=== PATIENT | female | born 1945 | race Caucasian/White ===

== ENCOUNTER → 2016-11-13 | Outpatient (CLI) | payer MEDICARE, BC ==
[~2016-11-13] MED LIST: DENOSUMAB 60 MG/ML 1 ML SYRINGE SQ ONE
[2016-11-13 11:39] VITALS: BP 132/67; PULSE 55; RESP 20; TEMP 98
== END | disposition home or self-care (01) ==
LOC: PROCWHC3 10:39
PROVIDERS: ATTEND Internal Medicine Geriatric Medicine
DX: M81.0 Age-related osteoporosis without current pathological fracture (principal)
CPT/HCPCS: 96372; J0897

== ENCOUNTER 2016-12-24 21:22 | Emergency (ER) | payer MEDICARE, BC ==
[2016-12-24 21:31] VITALS: RESP 18
--- NOTE | 2016-12-24 21:46 | ED ---
General Adult HPI - General Chief complaint: Urogenital Stated complaint: blood in urine Time Seen by Provider: 12/24/16 21:34 Source: patient, RN notes reviewed Mode of arrival: ambulatory Limitations: no limitations - History of Present Illness Initial comments: 71-year-old female presents emergency Department chief complaint dysuria, hematuria. Patient states it started earlier today. Patient states that she noticed she's been going more often and it fam. She states that she initially thought she noticed some blood but states that now it is more noticeable. states she has some lower abdominal pain just over her bladder region but denies any flank pain, abdominal pain and has no history kidney stones. Patient states that she's had no fever no chills. Patient does not take any blood thinners other than taking daily aspirin. Patient denies any diarrhea, constipation, chest pain, shortness breath, headache or dizziness. - Related Data Home Medications Medication Instructions Recorded Confirmed Aspirin 325 mg PO HS 01/21/14 12/24/16 Atenolol [Tenormin] 50 mg PO DAILY 01/21/14 12/24/16 Benazepril [Lotensin] 10 mg PO HS 01/21/14 12/24/16 Difluprednate [Durezol] 1 drop RIGHT EYE MOFR 01/21/14 12/24/16 Esomeprazole Magnesium [NexIUM] 40 mg PO DAILY 01/21/14 12/24/16 Famotidine [Pepcid] 20 mg PO HS 01/21/14 12/24/16 Furosemide [Lasix] 20 mg PO DAILY 01/21/14 12/24/16 Gabapentin [Neurontin] 300 mg PO BID 01/21/14 12/24/16 Levothyroxine Sodium [Synthroid] 100 mcg PO DAILY 01/21/14 12/24/16 Calcium Carbonate/Vitamin D3 1 tab PO BID 05/10/15 12/24/16 [Calcium 600 + Vit D Tablet] Ezetimibe/Simvastatin [Vytorin 1 tab PO DAILY 05/10/15 12/24/16 10-20 mg Tablet] Calcium Carbonate [Calcium] 600 mg PO DAILY 02/17/16 12/24/16 Multivitamins, Thera [Multivitamin] 1 tab PO DAILY 02/17/16 12/24/16 Previous Rx's Medication Instructions Recorded Ciprofloxacin HCl [Cipro] 500 mg PO Q12HR #14 tablet 12/24/16 Allergies Allergy/AdvReac Type Severity Reaction Status Date / Time Penicillins Allergy Unknown Swelling Verified 12/24/16 22:30 Review of Systems ROS Statement: Those systems with pertinent positive or pertinent negative responses have been documented in the HPI. ROS Other: All systems not noted in ROS Statement are negative. Past Medical History Past Medical History: Asthma, GERD/Reflux, Hyperlipidemia, Hypertension, Neurologic Disorder, Osteoarthritis (OA), Thyroid Disorder Additional Past Medical History / Comment(s): Valvular heart disease status post aortic valve replacement, prolapsed mitral valve, seasonal ALLERGIES. History of Any Multi-Drug Resistant Organisms: None Reported Past Surgical History: Orthopedic Surgery Additional Past Surgical History / Comment(s): BLADDER SUSPENSION, AORTIC HEART VALVE REPLACEMENT in 2004, bilateral BUNIONECTOMYS, Past Anesthesia/Blood Transfusion Reactions: No Reported Reaction, Motion Sickness Past Psychological History: No Psychological Hx Reported Smoking Status: Never smoker Past Alcohol Use History: None Reported Additional Past Alcohol Use History / Comment(s): Patient has been a lifelong nonsmoker. She drinks alcohol the social basis only. No alcohol abuse, no drug use, no medical marijuana or marijuana use. She is and lives at home with her. . 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 There are no pets in the home. She is currently living in a [facility]. Patient has had extensive travel throughout the [place] as well as in. [place]. Past Drug Use History: None Reported - Past Family History Brother(s) Family Medical History: Cancer Additional Family Medical History / Comment(s): LEUKEMIA Father Family Medical History: Coronary Artery Disease (CAD) Mother Family Medical History: Coronary Artery Disease (CAD) Son(s) Family Medical History: Unable to Obtain General Exam Limitations: no limitations General appearance: alert, in no apparent distress Neck exam: Present: normal inspection. Absent: tenderness, meningismus, lymphadenopathy Respiratory exam: Present: normal lung sounds bilaterally. Absent: respiratory distress, wheezes, rales, rhonchi, stridor Cardiovascular Exam: Present: regular rate, normal rhythm, normal heart sounds. Absent: systolic murmur, diastolic murmur, rubs, gallop, clicks GI/Abdominal exam: Present: soft, tenderness (Minimal suprapubic), normal bowel sounds. Absent: distended, guarding, rebound, rigid Back exam: Absent: CVA tenderness (R), CVA tenderness (L) Neurological exam: Present: alert, oriented X3, CN II-XII intact Skin exam: Present: warm, dry, intact, normal color. Absent: rash Course Vital Signs 12/24/16 21:28 Temperature 97.3 F L Pulse Rate 69 Respiratory 18 Rate Blood Pressure 142/67 O2 Sat by Pulse 100 Oximetry Medical Decision Making - Medical Decision Making 71-year-old female presented for dysuria hematuria. Patient has hemorrhagic cystitis. Patient placed in an bicep this time patient is informed that she needs to have her recheck her urine and nausea of her kidneys to make sure she does not have any masses of any sort. Patient will follow primary care for this. Return parameters were discussed. - Lab Data Lab Results 12/24/16 Range/Units 21:37 Urine Color Light Brown Urine Appearance Cloudy H (Clear) Urine pH 7.0 (5.0-8.0) Ur Specific [place] 1.011 (1.001-1.035) Urine Protein 2+ H (Negative) Urine Glucose (UA) Negative (Negative) Urine Ketones Negative (Negative) Urine Blood Large H (Negative) Urine Nitrite Negative (Negative) Urine Bilirubin Negative (Negative) Urine Urobilinogen <2.0 (<2.0) mg/dL Ur Leukocyte Esterase Moderate H (Negative) Urine RBC >182 H (0-5) /hpf Urine WBC 90 H (0-5) /hpf Urine WBC Clumps Occasional H (None) /hpf Disposition Clinical Impression: Hemorrhagic cystitis Disposition: HOME SELF-CARE Condition: Stable Instructions: Urinary Tract Infection in Women (ED) Additional Instructions: Please return to the Emergency Department if symptoms worsen or any other concerns. Prescriptions: Ciprofloxacin HCl [Cipro] 500 mg PO Q12HR #14 tablet Referrals: Alban Nelson MD [Primary Care Provider] - 1-2 days Time of Disposition: 22:41
[2016-12-24 22:14] LABS: Appearance,Urine Cloudy (Clear); Bilirubin,Urine Negative (Negative); Glucose,Urine (UA) Negative (Negative); Ketones,Urine Negative (Negative); Leukocyte Esterase,Urine Moderate (Negative); Nitrite,Urine Negative (Negative); Particle Count 8203; Protein,Urine 2+ (Negative); RBC,Urine >182 /hpf (0-5); Specific Gravity,Urine 1.011 (1.001-1.035); UA Billing (MACRO vs. MICRO) MICRO; Urobilinogen,Urine <2.0 mg/dL (<2.0); WBC,Urine 90 /hpf (0-5)
[2016-12-24] MEDS ORDERED: CIPROFLOXACIN HCL 500 MG TAB PO STA (22:41)
[2016-12-24 23:06] VITALS: BP 185/79; PULSE 70; TEMP 98.1
== END 2016-12-24 23:06 | disposition home or self-care (01) ==
LOC: EC 21:22
DX: N30.90 Cystitis, unspecified without hematuria (principal); J45.909 Unspecified asthma, uncomplicated; K21.9 Gastro-esophageal reflux disease without esophagitis; E78.5 Hyperlipidemia, unspecified; I10 Essential (primary) hypertension; M19.90 Unspecified osteoarthritis, unspecified site; E07.9 Disorder of thyroid, unspecified; Z79.82 Long term (current) use of aspirin; Z79.899 Other long term (current) drug therapy; Z88.0 Allergy status to penicillin
CPT/HCPCS: 81001; 87077; 87086; 87186; 99283

== ENCOUNTER 2016-12-30 19:44 | Inpatient (IN) | payer MEDICARE, BC ==
[2016-12-30] MEDS ORDERED: ACETAMINOPHEN TAB 500 MG TAB PO STA (19:58)
[2016-12-30] MEDS ORDERED: IBUPROFEN 600 MG TAB PO STA (19:58)
[2016-12-30] MEDS ORDERED: cefTRIAXone 2,000 MG in SODIUM CHLORIDE 0.9% 100 ML IVPB STA (20:05)
[2016-12-30] MEDS: SODIUM CHLORIDE 0.9% 500 ML IV SCH ×2 (20:21→20:44)
[2016-12-30 20:31] LABS: Appearance,Urine Clear (Clear); Bilirubin,Urine Negative (Negative); Glucose,Urine (UA) Negative (Negative); Ketones,Urine Negative (Negative); Leukocyte Esterase,Urine Negative (Negative); Nitrite,Urine Negative (Negative); PH, Urine 8.5 (5.0-8.0); Protein,Urine Negative (Negative); Specific Gravity,Urine 1.009 (1.001-1.035); UA Billing (MACRO vs. MICRO) CHEM; Urobilinogen,Urine <2.0 mg/dL (<2.0)
[2016-12-30 20:32] LABS: Basophils % (A) 0 %; CH 30.4; CHCM 33.9; Eosinophils # (A) 0.2 k/uL (0-0.7); Eosinophils % (A) 2 %; HCT 38.5 % (34.0-46.0); HDW 2.53; HGB 12.7 gm/dL (11.4-16.0); Luc # (Auto) 0.04; Luc % (Auto) 0; Lymphocytes # (A) 0.3 k/uL (1.0-4.8); Lymphocytes % (A) 3 %; MCH 29.8 pg (25.0-35.0); MCV 90.2 fL (80.0-100.0); Mean Platelet Volume 6.7; Monocytes # (A) 0.2 k/uL (0-1.0); Monocytes % (A) 2 %; Neutrophils % (A) 93 %; RBC 4.27 m/uL (3.80-5.40); RDW 13.3 % (11.5-15.5); WBC 11.8 k/uL (3.8-10.6); WBC (Perox) 11.63
--- NOTE | 2016-12-30 20:32 | ED ---
General Adult HPI - General Chief complaint: Fever Stated complaint: Fever Time Seen by Provider: 12/30/16 19:50 Source: patient, RN notes reviewed Mode of arrival: ambulatory Limitations: no limitations - History of Present Illness Initial comments: this is a 71-year-old female who presents emergency Department after being diagnosed with urinary tract infection and started on Cipro. Patient states her primary medical care doctor switched her antibiotic to Macrobid. Patient comes in today because she continues to spike high fevers and have some right- sided back pain. Patient denies any abdominal pain. Patient denies any nausea vomiting diarrhea. Patient denies any recent cough or difficult to breathing or shortness of breath. Patient denies chest pain or palpitations. Patient denies any skin rashes or lesions. Patient denies headache patient denies neck stiffness. - Related Data Home Medications Medication Instructions Recorded Confirmed Atenolol [Tenormin] 50 mg PO DAILY 01/21/14 12/30/16 Benazepril [Lotensin] 10 mg PO HS 01/21/14 12/30/16 Difluprednate [Durezol] 1 drop RIGHT EYE MOFR 01/21/14 12/30/16 Esomeprazole Magnesium [NexIUM] 40 mg PO DAILY 01/21/14 12/30/16 Famotidine [Pepcid] 20 mg PO HS 01/21/14 12/30/16 Gabapentin [Neurontin] 300 mg PO BID 01/21/14 12/30/16 Levothyroxine Sodium [Synthroid] 100 mcg PO QAM 01/21/14 12/30/16 Ezetimibe/Simvastatin [Vytorin 1 tab PO HS 05/10/15 12/30/16 10-20 mg Tablet] Aspirin EC [Ecotrin] 325 mg PO HS 12/30/16 12/30/16 Calcium Carbonate/Vitamin D3 2 tab PO DAILY 12/30/16 12/30/16 [Calcium 600-Vit D3 800 Tab] Furosemide [Lasix] 20 mg PO QAM 12/30/16 12/30/16 Multivitamins, Thera [Multivitamin 1 tab PO DAILY 12/30/16 12/30/16 (formulary)] Nitrofurantoin Monohyd/M-Cryst 100 mg PO Q12HR 12/30/16 12/30/16 [Macrobid] Allergies Allergy/AdvReac Type Severity Reaction Status Date / Time Penicillins Allergy Unknown Swelling Verified 12/24/16 22:30 Review of Systems ROS Statement: Those systems with pertinent positive or pertinent negative responses have been documented in the HPI. ROS Other: All systems not noted in ROS Statement are negative. Past Medical History Past Medical History: Asthma, GERD/Reflux, Hyperlipidemia, Hypertension, Neurologic Disorder, Osteoarthritis (OA), Thyroid Disorder Additional Past Medical History / Comment(s): Valvular heart disease status post aortic valve replacement, prolapsed mitral valve, seasonal ALLERGIES. History of Any Multi-Drug Resistant Organisms: None Reported Past Surgical History: Orthopedic Surgery Additional Past Surgical History / Comment(s): BLADDER SUSPENSION, AORTIC HEART VALVE REPLACEMENT in 2004, bilateral BUNIONECTOMYS, Past Anesthesia/Blood Transfusion Reactions: No Reported Reaction, Motion Sickness Past Psychological History: No Psychological Hx Reported Smoking Status: Never smoker Past Alcohol Use History: None Reported Past Drug Use History: None Reported - Past Family History Brother(s) Family Medical History: Cancer Additional Family Medical History / Comment(s): LEUKEMIA Father Family Medical History: Coronary Artery Disease (CAD) Mother Family Medical History: Coronary Artery Disease (CAD) Son(s) Family Medical History: Unable to Obtain General Exam - General Exam Comments Initial Comments: GENERAL: Patient is well-developed and well-nourished. Patient is nontoxic and well- hydrated and is in mild distress. ENT: Neck is soft and supple. No significant lymphadenopathy is noted. Oropharynx is clear. Moist mucous membranes. Neck has full range of motion without eliciting any pain. EYES: The sclera were anicteric and conjunctiva were pink and moist. Extraocular movements were intact and pupils were equal round and reactive to light. Eyelids were unremarkable. PULMONARY: Unlabored respirations. Good breath sounds bilaterally. No audible rales rhonchi or wheezing was noted. CARDIOVASCULAR: There is a regular rate and rhythm without any murmurs gallops or rubs. ABDOMEN: Soft and nontender with normal bowel sounds. No palpable organomegaly was noted. There is no palpable pulsatile mass. SKIN: Skin is clear with no lesions or rashes and otherwise unremarkable. NEUROLOGIC: Patient is alert and oriented x3. Cranial nerves II through XII are grossly intact. Motor and sensory are also intact. Normal speech, volume and content. Symmetrical smile. MUSCULOSKELETAL: Normal extremities with adequate strength and full range of motion. Mild CVA tenderness on the right LYMPHATICS: No significant lymphadenopathy is noted PSYCHIATRIC: Normal psychiatric evaluation. Normal interpersonal interactions appears functionally intact in deals appropriately with others. No signs of depression. No signs of anxiety. Limitations: no limitations Course Vital Signs 12/30/16 12/30/16 12/30/16 19:47 20:57 22:08 Temperature 102.7 F H 102.6 F H 100.9 F H Pulse Rate 90 86 75 Respiratory 18 18 18 Rate Blood Pressure 181/77 153/68 136/65 O2 Sat by Pulse 95 96 96 Oximetry 12/30/16 23:08 Temperature 100.0 F H Pulse Rate 76 Respiratory 18 Rate Blood Pressure 132/66 O2 Sat by Pulse 95 Oximetry Medical Decision Making - Medical Decision Making EKG shows a normal sinus rhythm at 87 bpm [place] interval is 166 QRS is 92 QT interval 342 QTC is 411. Patient's EKG shows no ST segment elevation or depression or T wave abnormalities are noted Chest x-ray shows no acute abnormality Patient still does not feel good and think she needs to be admitted. I spoke with Dr. Nicholas he agreed to admit the patient I wrote admit orders. Dr. Nicholas wanted the patient to get Invanz Patient's urine does not show an obvious infection at this point but because the back pain and the fact that she was partially treated with 2 different antibiotics I admitted the patient hoping that the cultures come back indicate what antibiotic is best choice for her urinary tract infection. - Lab Data Result diagrams: 12/30/16 20:10 12/30/16 20:10 Lab Results 12/30/16 12/30/16 12/30/16 Range/Units 20:10 20:10 20:10 WBC 11.8 H (3.8-10.6) k/uL RBC 4.27 (3.80-5.40) m/uL Hgb 12.7 (11.4-16.0) gm/dL Hct 38.5 (34.0-46.0) % MCV 90.2 (80.0-100.0) fL MCH 29.8 (25.0-35.0) pg MCHC 33.0 (31.0-37.0) g/dL RDW 13.3 (11.5-15.5) % Plt Count 270 (150-450) k/uL Neutrophils % 93 % Lymphocytes % 3 % Monocytes % 2 % Eosinophils % 2 % Basophils % 0 % Neutrophils # 11.0 H (1.3-7.7) k/uL Lymphocytes # 0.3 L (1.0-4.8) k/uL Monocytes # 0.2 (0-1.0) k/uL Eosinophils # 0.2 (0-0.7) k/uL Basophils # 0.0 (0-0.2) k/uL PT (9.0-12.0) sec INR (<1.1) APTT (22.0-30.0) sec Sodium 135 L (137-145) mmol/L Potassium 4.2 (3.5-5.1) mmol/L Chloride 97 L (98-107) mmol/L Carbon Dioxide 25 (22-30) mmol/L Anion Gap 13 mmol/L BUN 11 (7-17) mg/dL Creatinine 0.70 (0.52-1.04) mg/dL Est GFR (MDRD) Af Amer >60 (>60 ml/min/1.73 sqM) Est GFR (MDRD) Non-Af >60 (>60 ml/min/1.73 sqM) Glucose 128 H (74-99) mg/dL Plasma Lactic Acid [place] 1.2 (0.7-2.0) mmol/L Calcium 10.1 (8.4-10.2) mg/dL Total Bilirubin 0.4 (0.2-1.3) mg/dL AST 31 (14-36) U/L ALT 41 (9-52) U/L Alkaline Phosphatase 93 (38-126) U/L Total Protein 7.7 (6.3-8.2) g/dL Albumin 4.5 (3.5-5.0) g/dL Urine Color Urine Appearance (Clear) Urine pH (5.0-8.0) Ur Specific [place] (1.001-1.035) Urine Protein (Negative) Urine Glucose (UA) (Negative) Urine Ketones (Negative) Urine Blood (Negative) Urine Nitrite (Negative) Urine Bilirubin (Negative) Urine Urobilinogen (<2.0) mg/dL Ur Leukocyte Esterase (Negative) 12/30/16 12/30/16 Range/Units 20:10 20:10 WBC (3.8-10.6) k/uL RBC (3.80-5.40) m/uL Hgb (11.4-16.0) gm/dL Hct (34.0-46.0) % MCV (80.0-100.0) fL MCH (25.0-35.0) pg MCHC (31.0-37.0) g/dL RDW (11.5-15.5) % Plt Count (150-450) k/uL Neutrophils % % Lymphocytes % % Monocytes % % Eosinophils % % Basophils % % Neutrophils # (1.3-7.7) k/uL Lymphocytes # (1.0-4.8) k/uL Monocytes # (0-1.0) k/uL Eosinophils # (0-0.7) k/uL Basophils # (0-0.2) k/uL PT 9.9 (9.0-12.0) sec INR 1.0 (<1.1) APTT 24.4 (22.0-30.0) sec Sodium (137-145) mmol/L Potassium (3.5-5.1) mmol/L Chloride (98-107) mmol/L Carbon Dioxide (22-30) mmol/L Anion Gap mmol/L BUN (7-17) mg/dL Creatinine (0.52-1.04) mg/dL Est GFR (MDRD) Af Amer (>60 ml/min/1.73 sqM) Est GFR (MDRD) Non-Af (>60 ml/min/1.73 sqM) Glucose (74-99) mg/dL Plasma Lactic Acid [place] (0.7-2.0) mmol/L Calcium (8.4-10.2) mg/dL Total Bilirubin (0.2-1.3) mg/dL AST (14-36) U/L ALT (9-52) U/L Alkaline Phosphatase (38-126) U/L Total Protein (6.3-8.2) g/dL Albumin (3.5-5.0) g/dL Urine Color Yellow Urine Appearance Clear (Clear) Urine pH 8.5 H (5.0-8.0) Ur Specific [place] 1.009 (1.001-1.035) Urine Protein Negative (Negative) Urine Glucose (UA) Negative (Negative) Urine Ketones Negative (Negative) Urine Blood Negative (Negative) Urine Nitrite Negative (Negative) Urine Bilirubin Negative (Negative) Urine Urobilinogen <2.0 (<2.0) mg/dL Ur Leukocyte Esterase Negative (Negative) Disposition Clinical Impression: Pyelonephritis Disposition: ADMITTED IP TO THIS HOSP Time of Disposition: 23:04
[2016-12-30 20:43] LABS: Partial Thromboplastin Time 24.4 sec (22.0-30.0); Prothrombin Time 9.9 sec (9.0-12.0)
[2016-12-30 20:55] LABS: ALT 41 U/L (9-52); AST 31 U/L (14-36); Alkaline Phosphatase 93 U/L (38-126); Anion Gap 13 mmol/L; Blood Urea Nitrogen 11 mg/dL (7-17); Calcium 10.1 mg/dL (8.4-10.2); Carbon Dioxide 25 mmol/L (22-30); Chloride 97 mmol/L (98-107); Glucose 128 mg/dL (74-99); Non-African American GFR(MDRD) >60 (>60 ml/min/1.73 sqM); Potassium 4.2 mmol/L (3.5-5.1); Sodium 135 mmol/L (137-145); Total Bilirubin 0.4 mg/dL (0.2-1.3); Total Protein 7.7 g/dL (6.3-8.2)
--- NOTE | 2016-12-30 22:33 | XR ---
EXAM: XR Chest, 2 Views CLINICAL HISTORY: Reason: Difficulty breathing TECHNIQUE: Frontal and lateral views of the chest. COMPARISON: Chest x-ray 04/21/2013 FINDINGS: Lungs: Minimal opacities at the left lung base, favor atelectasis but correlate for early pneumonia. Pleural space: Unremarkable. No pneumothorax. Heart: Heart size is normal limits. Aortic valve replacement. Mediastinum: Unremarkable. Bones/joints: Median sternotomy wires. IMPRESSION: Minimal opacities at the left lung base, favor atelectasis but correlate for early pneumonia.
[2016-12-30] MEDS ORDERED: HYDROmorphone 1 MG/ML 1 ML SYRINGE IVP STA (23:10)
[2016-12-30] MEDS ORDERED: ONDANSETRON 4 MG/2 ML VIAL IVP STA (23:10)
[2016-12-30] MEDS: SODIUM CHLORIDE 0.9% 1,000 ML IV ONE (23:20)
[2016-12-30] MEDS ORDERED: ACETAMINOPHEN TAB 325 MG TAB PO PRN (23:30)
[2016-12-30 23:45] VITALS: BMI 23.6
[2016-12-31] MEDS: ATORVASTATIN 10 MG TAB PO SCH ×2 (00:38→20:14)
[2016-12-31] MEDS: GABAPENTIN 300 MG CAP PO SCH ×3 (00:39→20:13)
[2016-12-31] MEDS: EZETIMIBE 10 MG TAB PO SCH ×2 (00:39→20:13)
[2016-12-31] MEDS: LISINOPRIL 10 MG TAB PO SCH ×2 (00:39→20:13)
[2016-12-31] MEDS: LEVOTHYROXINE 100 MCG TAB PO SCH (06:07)
[2016-12-31] MEDS: ERTAPENEM 1 GM in SODIUM CHLORIDE 0.9% 50 ML IVPB SCH (08:50)
[2016-12-31] MEDS ORDERED: NON-FORMULARY DRUG (Difluprednate [Durezol] 1 DROP) RIGHT EYE SCH (11:15)
[2016-12-31] MEDS ORDERED: IBUPROFEN 600 MG TAB PO PRN (12:09)
[2016-12-31] MEDS: HYDROmorphone 1 MG/ML 1 ML SYRINGE IVP PRN (12:28)
[2016-12-31] MEDS: POLYETHYLENE GLYCOL 3350 17 GM POWD.PACK PO SCH (12:30)
[2016-12-31] MEDS: ATENOLOL 50 MG TAB PO SCH (12:30)
--- NOTE | 2016-12-31 13:31 | US ---
EXAMINATION TYPE: US kidneys/renal and bladder DATE OF EXAM: 12/31/2016 COMPARISON: NONE CLINICAL HISTORY: uti; Renal infection, bilateral flank pain and hematuria per patient. EXAM MEASUREMENTS: Right Kidney: 11.0 x 6.4 x 3.9 cm Left Kidney: 10.3 x 5.6 x 5.1 cm Post Void Residual Volume: 10.1 mL Right Kidney: No hydronephrosis; right renal cortical cyst at mid lower pole = 1.6 x 1.4 x 1.0cm Left Kidney: No hydronephrosis or masses seen Bladder: wnl Bilateral Jets seen: yes, smaller right jet than left jet Normal Post Void Residual: Yes Cortical medullary differentiation is maintained, kidneys are morphologically normal. No significant postvoid residual urinary bladder IMPRESSION: There may be a small septation within the right renal cyst.
--- NOTE | 2016-12-31 14:38 | P.HPIM ---
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 Patient was diagnosed on 01/23/2017 with UTI and hematuria at the time urine culture was done result came back positive for E. coli with susceptibility to multiple antibiotics one of them ciprofloxacin and Macrodantin. Patient called my partner on Saturday not feeling well started having low-grade temperature with burning urination and slight discomfort toward the end of urination with no hematuria this time. My partner end up calling in Macrodantin 100 mg twice a day which patient is taking developed to have worsening symptoms with worsening right-sided flank pain radiating toward the groin area along with fever and chills. Ended up coming to the emergency department at [facility] surprisingly her urine test came back negative for the time with mildly elevated white blood cell respiratory lab did not look bad. Patient blood pressure and pulse rates were slightly bit off consistent with sepsis. Patient was started on Rocephin IV. Infectious disease were consulted patient probably have relapse of her symptom for possible foreign body including kidney stone. Ultrasound of the kidney will be done and furthermore patient might require CT without contrast as a protocol for kidney stone. Review of Systems Constitutional: Reports fatigue, Reports malaise, Reports night sweats, Reports sweats, Reports weakness, Reports weight loss, Denies as per HPI, Denies anorexia, Denies chills, Denies chronic headaches, Denies chronic pain, Denies daytime sleepiness, Denies fever, Denies lethargy, Denies poor appetite, Denies weight gain Eyes: bilateral as per HPI, bilateral blurred vision Ears: bilateral: decreased hearing Ears, nose, mouth and throat: Reports ant. neck pain, Reports mouth pain, Reports nasal discharge, Reports neck fullness/pressure, Reports sinus pain, Reports sinus pressure, Denies as per HPI, Denies bleeding gums, Denies dental pain, Denies dysphagia, Denies epistaxis, Denies headache, Denies hoarseness, Denies nasal congestion, Denies neck lump, Denies nose pain, Denies odynophagia , Denies post-nasal drip, Denies swelling in mouth, Denies swelling in throat, Denies sore throat, Denies vertigo, Denies voice changes Cardiovascular: Reports chest pain, Reports lightheadedness, Reports palpitations, Reports phlebitis, Reports rapid heart beat, Denies as per HPI, Denies claudication, Denies decreased exercise tolerance, Denies dyspnea on exertion, Denies edema, Denies high blood pressure, Denies irregular heart beat , Denies leg edema, Denies orthopnea, Denies paroxysmal nocturnal dyspnea, Denies shortness of breath, Denies syncope Respiratory: Reports congestion, Denies as per HPI, Denies cough, Denies cough with sputum, Denies dyspnea, Denies excessive sputum, Denies hemoptysis, Denies home oxygen, Denies pain, Denies pain on inspiration, Denies pleurisy, Denies respiratory infections, Denies sleep apnea, Denies snoring, Denies wheezing Gastrointestinal: Reports abdominal pain, Reports bloating, Reports constipation , Reports dyspepsia, Reports heartburn, Reports loss of appetite, Reports melena , Reports nausea, Denies as per HPI, Denies belching, Denies BRBPR, Denies change in bowel habits, Denies coffee ground emesis, Denies diarrhea, Denies early satiety, Denies excessive gas, Denies hematemesis, Denies hematochezia, Denies indigestion, Denies jaundice, Denies lactose intolerance, Denies vomiting Genitourinary: Reports dysuria, Reports flank pain, Reports hematuria, Reports incomplete emptying, Reports kidney stones, Reports stress incontinence, Reports urge incontinence, Reports urinary frequency, Denies as per HPI, Denies abnormal vaginal bleeding, Denies decreased libido, Denies difficulty conceiving , Denies difficulty voiding, Denies dysmenorrhea, Denies dyspareunia, Denies genital sores, Denies hot flashes, Denies menorrhagia, Denies mixed incontinence , Denies nocturia, Denies pelvic pain, Denies post void dribbling, Denies , Denies prolapse symptoms, Denies urgency, Denies vaginal discharge, Denies vaginal dryness, Denies vaginal itching, Denies vaginal odor Musculoskeletal: Reports frequent falls, Reports gait dysfunction, Reports leg numbness/tingling, Reports limitation of motion, Reports loss of height, Reports low back pain, Reports myalgias, Reports neck stiffness, Reports prior amputations, Denies as per HPI, Denies arm numbness/tingling, Denies atrophy, Denies fractures, Denies hot joints, Denies morning stiffness, Denies muscle cramps, Denies muscle weakness, Denies neck pain, Denies redness of joints, Denies shooting arm pain, Denies shooting leg pain Musculoskeletal: bilateral: ankle pain Integumentary: Reports pruritus, Reports rash, Reports striae, Denies as per HPI , Denies acne, Denies boils, Denies brittle nails, Denies change in hair/nails, Denies color changes, Denies darkening of skin, Denies depigmentation, Denies dryness, Denies foot/leg ulcers, Denies growths, Denies hirsutism, Denies lesions, Denies onychomycosis, Denies sores, Denies unusual bruising, Denies wounds Neurological: Denies as per HPI, Denies aphasia, Denies ataxia, Denies balance difficulties, Denies burning pain, Denies change in mentation, Denies change in smell/taste, Denies change in speech, Denies confusion, Denies convulsions, Denies double vision, Denies gait dysfunction, Denies head injury, Denies headaches, Denies hearing difficulties, Denies lack of coordination, Denies loss of vision, Denies memory loss, Denies migraines, Denies motor disturbance, Denies numbness, Denies paralysis, Denies paresthesias, Denies seizures, Denies sensory deficit, Denies spasticity, Denies syncope, Denies tic, Denies tingling , Denies transient paralysis, Denies tremors, Denies vertigo, Denies weakness, Denies visual changes Psychiatric: Reports anxiety, Reports depression, Denies as per HPI, Denies anhedonia, Denies anxiety attacks, Denies change in appetite, Denies change in libido, Denies change in sleep habits, Denies confusion, Denies difficulty concentrating, Denies disorientation, Denies hallucinations, Denies hopelessness , Denies hypersomnia, Denies insomnia, Denies irritability, Denies memory loss, Denies mood swings, Denies paranoia, Denies sadness/tearfulness, Denies sleep disturbances, Denies suicidal ideation Endocrine: Reports nocturia, Reports palpitations, Reports polydipsia, Reports polyphagia, Reports polyuria, Denies as per HPI, Denies cold intolerance, Denies deepening of the voice, Denies excessive sweating, Denies excessive thirst, Denies fatigue, Denies flushing, Denies heat intolerance, Denies high blood sugars, Denies increase in ring/shoe/hat size, Denies low blood sugars, Denies proptosis, Denies recent glucocorticoid use, Denies thyroid mass, Denies weight change Hematologic/Lymphatic: Denies as per HPI, Denies easy bleeding, Denies easy bruising, Denies lymphadenopathy, Denies lymphedema, Denies thrombophilia Allergic/Immunologic: Denies as per HPI, Denies allergic rhinitis, Denies anaphylaxis, Denies angioedema, Denies gluten intolerance, Denies persistent infections, Denies seasonal allergies, Denies urticaria, Denies wheezing Past Medical History Past Medical History: Asthma, GERD/Reflux, Hyperlipidemia, Hypertension, Neurologic Disorder, Osteoarthritis (OA), Thyroid Disorder Additional Past Medical History / Comment(s): Valvular heart disease status post aortic valve replacement, prolapsed mitral valve, seasonal ALLERGIES. History of Any Multi-Drug Resistant Organisms: None Reported Past Surgical History: Orthopedic Surgery Additional Past Surgical History / Comment(s): BLADDER SUSPENSION, AORTIC HEART VALVE REPLACEMENT in 2004, bilateral BUNIONECTOMYS, Past Anesthesia/Blood Transfusion Reactions: No Reported Reaction, Motion Sickness Past Psychological History: No Psychological Hx Reported Smoking Status: Never smoker Past Alcohol Use History: None Reported Past Drug Use History: None Reported - Past Family History Brother(s) Family Medical History: Cancer Additional Family Medical History / Comment(s): LEUKEMIA Father Family Medical History: Coronary Artery Disease (CAD) Mother Family Medical History: Coronary Artery Disease (CAD) Son(s) Family Medical History: Unable to Obtain Medications and Allergies Home Medications Medication Instructions Recorded Confirmed Type Atenolol [Tenormin] 50 mg PO DAILY 01/21/14 12/30/16 History Benazepril [Lotensin] 10 mg PO HS 01/21/14 12/30/16 History Difluprednate [Durezol] 1 drop RIGHT EYE MOFR 01/21/14 12/30/16 History Esomeprazole Magnesium [NexIUM] 40 mg PO DAILY 01/21/14 12/30/16 History Famotidine [Pepcid] 20 mg PO HS 01/21/14 12/30/16 History Gabapentin [Neurontin] 300 mg PO BID 01/21/14 12/30/16 History Levothyroxine Sodium [Synthroid] 100 mcg PO QAM 01/21/14 12/30/16 History Ezetimibe/Simvastatin [Vytorin 1 tab PO HS 05/10/15 12/30/16 History 10-20 mg Tablet] Aspirin EC [Ecotrin] 325 mg PO HS 12/30/16 12/30/16 History Calcium Carbonate/Vitamin D3 2 tab PO DAILY 12/30/16 12/30/16 History [Calcium 600-Vit D3 800 Tab] Furosemide [Lasix] 20 mg PO QAM 12/30/16 12/30/16 History Multivitamins, Thera [Multivitamin 1 tab PO DAILY 12/30/16 12/30/16 History (formulary)] Nitrofurantoin Monohyd/M-Cryst 100 mg PO Q12HR 12/30/16 12/30/16 History [Macrobid] Allergies Allergy/AdvReac Type Severity Reaction Status Date / Time Penicillins Allergy Unknown Swelling Verified 12/24/16 22:30 Physical Exam Vitals: Vital Signs Temp Pulse Pulse Resp BP BP Pulse Ox 12/31/16 07:00 97.6 F 60 16 109/59 95 12/31/16 00:00 70 16 12/30/16 23:41 98.9 F 70 16 131/61 92 L 12/30/16 23:08 100.0 F H 76 18 132/66 95 12/30/16 22:08 100.9 F H 75 18 136/65 96 12/30/16 20:57 102.6 F H 86 18 153/68 96 12/30/16 19:47 102.7 F H 90 18 181/77 95 Intake and Output 12/30/16 12/31/16 12/31/16 22:59 06:59 14:59 Other: Voiding Method Toilet Toilet # Voids 1 Weight 64.41 kg 64.41 kg 64.41 kg Patient Weight 01/01/17 06:59 Weight 64.41 kg - Constitutional General appearance: no average body habitus, cooperative, no disheveled, no mild distress, no morbidly obese, no acute distress, no obese, no severe distress, no thin - EENT Eyes: no abnormal pupil, no anicteric sclerae, no disc margins sharp, no edentulous, no EOMI, no PERRLA, no fundus normal, no photophobia, no dentition normal, no poor dentition, no ptosis, no scleral icterus, normal appearance ENT: no hard of hearing, no hearing grossly normal, no NA/AT, normal oropharynx , no other, no pharyngeal erythema, no thrush, no tonsillar exudates, no tonsillar swelling Ears: bilateral: normal - Neck Neck: no lymphadenopathy, normal ROM, no other, no rigidity, no stridor, no thyromegaly Carotids: bilateral: upstroke normal Thyroid: bilateral: normal size - Respiratory Respiratory: bilateral: CTA, diminished - Cardiovascular Rhythm: regular Heart sounds: normal: S1 Abnormal Heart Sounds: systolic murmur, S3 Gallop - Gastrointestinal General gastrointestinal: no absent bowel sounds, decreased bowel sounds, no distended, hepatomegaly, hyperactive bowel sounds, no normal bowel sounds, no organomegaly, no rigid, no scaphoid, soft, splenomegaly, no tenderness, no umbilical hernia, no ventral hernia - Integumentary Integumentary: no calor, no cellulitis, no cyanotic, no decreased turgor, flushed, no jaundiced, normal, no normal turgor, pale, rash, no ulcer - Neurologic Neurologic: CNII-XII intact - Musculoskeletal Musculoskeletal: gait normal, generalized weakness, no strength equal bilaterally, no right sided weakness, no left sided weakness - Psychiatric Psychiatric: A&O x's 3, appropriate affect, no intact judgment & insight Results CBC & Chem 7: 12/30/16 20:10 12/30/16 20:10 Labs: Abnormal Lab Results - Last 24 Hours (Table) 12/30/16 12/30/16 12/30/16 Range/Units 20:10 20:10 20:10 WBC 11.8 H (3.8-10.6) k/uL Neutrophils # 11.0 H (1.3-7.7) k/uL Lymphocytes # 0.3 L (1.0-4.8) k/uL Sodium 135 L (137-145) mmol/L Chloride 97 L (98-107) mmol/L Glucose 128 H (74-99) mg/dL Urine pH 8.5 H (5.0-8.0) Microbiology - Last 24 Hours (Table) 12/30/16 20:10 Urine Culture - Preliminary Urine,Clean Catch Thrombosis Risk Factor Assmnt - Choose All That Apply Any of the Below Risk Factors Present?: No Each Risk Factor Represents 2 Points: Age 61-74 years Thrombosis Risk Factor Assessment Total Risk Factor Score: 2 Thrombosis Risk Factor Assessment Level: Low Risk Assessment and Plan Plan: 1 sepsis/pyelonephritis of the right side: Patient was started on Rocephin initially and changed to ertapenem will be seen ID and hold off on Macrobid for now. Continue to watch for new culture result an infectious disease consult. 2 recurrent UTI with failure to outpatient treatment possible kidney stone, ultrasound was order and possible need for CT of the abdomen without contrast. 3 valvular heart disease: Post aortic valve placement and mitral valve disease has been seeing cardiology regular basis patient is doing very well. 4 hypertension: Has been on Benzapril 10 mg a day and atenolol 50 mg daily. 5 chronic neuropathy: Has been on gabapentin 300 mg twice a day. 6 hypothyroidism: Continue patient on Synthroid 100 g daily. 7 hyperlipidemia: On Vytorin 10/20 mg daily. 8 chronic fluid retention: Patient has been on furosemide which began been treated for chronic venostasis. 9 arrhythmia: Has been on atenolol 50 mg daily. 10 GI prophylaxis: Patient will be continue on Nexium 40 mg daily. 11 DVT prophylaxis: Patient will be continue on heparin 5000 units subcutaneous twice a day along with knee-high BARBI hose. Status: Full code. Expectation from's admission: Patient in the hospital for more than 2 nights.
--- NOTE | 2016-12-31 18:18 | CT ---
EXAMINATION TYPE: CT abdomen pelvis wo con DATE OF EXAM: 12/31/2016 COMPARISON: NONE HISTORY: Bilateral flank pain. CT DLP: 315.70 mGycm Automated exposure control for dose reduction was used. TECHNIQUE: Helical acquisition of images was performed from the lung bases through the pelvis. FINDINGS: There is mild linear density at the lung bases consistent with subsegmental atelectasis. There is no pleural effusion. Liver shows no focal defect. Spleen appears normal. There is a 2 mm pancreatic calcification. Bile du cts are not dilated. Gallbladder is contracted. There is no adrenal mass. Kidneys have normal size and contour. There is no hydronephrosis. Ureters a re not dilated. There is some vascular calcification. There is no retroperitoneal adenopathy. Abdomin al aorta is atheromatous. There are surgical clips apparently from rectal anastomosis. Bladder disten ds smoothly. There is no sign of a pelvic mass. There is retained fecal material throughout the colon . I see no bony destructive process. There is a degenerative first degree L4-5 spondylolisthesis. The re are spondylotic changes in the lower lumbar spine. There is moderate facet arthropathy at L4-5 L5- S1. There is probably a 2 x 1 cm cortical cyst on the anterior right kidney. IMPRESSION: MINIMAL SUBSEGMENTAL ATELECTASIS AT THE LUNG BASES. TINY PANCREATIC CALCIFICATION COULD RELATE TO PRE VIOUS INFLAMMATORY DISEASE. SMALL RIGHT RENAL CORTICAL CYST. ATHEROSCLEROTIC VASCULAR DISEASE. CONSTI PATION. NO EVIDENCE OF RENAL OBSTRUCTION. THERE ARE POSSIBLE LESS THAN 1 MM NONOBSTRUCTING LEFT RENAL CALCULI.
[2016-12-31] MEDS: FAMOTIDINE 20 MG TAB PO SCH (20:14)
--- NOTE | 2016-12-31 21:34 | P.CONS ---
History of Present Illness - Reason for Consult Consult date: 12/31/16 - Chief Complaint Hematuria and right flank pain with fever - History of Present Illness Pleasant 71-year-old female known to the infectious disease service from the difficulties with her left knee. 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 Was treated with antibiotic therapies. That had a reimplanted. It would be in 2013. Since then she had loosening of the hardware. In a different type of prosthesis was placed in an outside hospital. The knee has somewhat poor range of motion but she is able to walk quickly and does not have pain. She however developed a week ago symptoms of urinary infection with hematuria and some right flank pain. She had some chills without rigors and is felt poorly. Appetites been poor but no nausea or emesis. She's also had some suprapubic tenderness. She was cared for in the outside setting and placed on antibiotic therapy. The patient was still having symptoms antibiotic therapy was changed to Macrodantin. Despite this she had worsening of her symptoms and presented to emergency center and has now been admitted. She relates that she received some morphine has helped her pain and her headache and feels better tonight. Overall does feel better. With fluids and antibiotics she's had decrease of her symptoms. Not having significant fever or chill. The urine culture from 12/24 does reveal evidence of E. coli that has resistance to sulfa, gentamicin, ampicillin and Unasyn. With ongoing symptoms infectious diseases consultation was requested. Review of Systems 71-year-old woman who is feeling slightly better this evening. But had a significant fever right flank pain chills and significant suprapubic pain and hematuria before admission. HEENT:Denies headache or acute visual change. Denies sinus or mouth discomforts. Denies neck stiffness or pain. Denies significant oral cavity pain. Denies difficulty on swallowing. Lungs: Denies significant shortness of breath, cough, sputum production, or hemoptysis. Cardiovascular: Denies significant shortness of breath, chest pain, chest wall pain, orthopnea, dyspnea on exertion, syncope has done well since her valve surgery Gastrointestinal:Denies nausea, vomiting, diarrhea, constipation, hematemesis, melena, hematochezia. No no significant change of bowel habit noticed. Musculoskeletal: denies significant myalgias or arthralgias. No new joint swelling. Denies new back pain. Skin: Denies new rash or lesions. No new ulcers or wounds are related.. Neuro: Denies headache or visual change. Denies any new onset weakness or difficulty with ambulation. Denies falls or seizures. Psychiatric:Denies anxiety or depression. Endocrine: Denies significant fatigue, denies significant weight loss or weight gain. 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 History of Any Multi-Drug Resistant Organisms: None Reported Past Surgical History: Orthopedic Surgery Additional Past Surgical History / Comment(s): BLADDER SUSPENSION, AORTIC HEART VALVE REPLACEMENT in 2004, bilateral BUNIONECTOMYS, Past Anesthesia/Blood Transfusion Reactions: No Reported Reaction, Motion Sickness Past Psychological History: No Psychological Hx Reported Additional Psychological History / Comment(s): . no recent travel. Lifelong nonsmoker no stiffen alcohol use. No animal exposures Smoking Status: Never smoker Past Alcohol Use History: None Reported Past Drug Use History: None Reported - Past Family History Brother(s) Family Medical History: Cancer Additional Family Medical History / Comment(s): LEUKEMIA Father Family Medical History: Coronary Artery Disease (CAD) Mother Family Medical History: Coronary Artery Disease (CAD) Son(s) Family Medical History: Unable to Obtain Medications and Allergies Home Medications and Allergies Comment(s): Current Medications Acetaminophen (Tylenol Tab) 650 mg PO Q4HR PRN PRN Reason: Fever and/ or Pain Aspirin (Aspirin) 325 mg PO [facility] Atenolol (Tenormin) 50 mg PO DAILY [facility] Last Admin: 12/31/16 12:30 Dose: 50 mg Atorvastatin Calcium (Lipitor) 10 mg PO [facility] Last Admin: 12/31/16 20:14 Dose: 10 mg Calcium Carbonate (Oscal 500+D) 2 each PO 1200 [facility] Ezetimibe (Zetia) 10 mg PO HS [facility] Last Admin: 12/31/16 20:13 Dose: 10 mg Famotidine (Pepcid) 20 mg PO HS [facility] Last Admin: 12/31/16 20:14 Dose: 20 mg Furosemide (Lasix) 20 mg PO QAM [facility] Gabapentin (Neurontin) 300 mg PO BID [facility] Last Admin: 12/31/16 20:13 Dose: 300 mg Hydromorphone HCl (Dilaudid) 0.5 mg IVP Q4HR PRN PRN Reason: Pain Last Admin: 12/31/16 12:28 Dose: 0.5 mg Ertapenem 1 gm/ Sodium (Chloride) 50 mls @ 100 mls/hr IVPB DAILY [facility] Last Admin: 12/31/16 08:50 Dose: 100 mls/hr Ibuprofen (Motrin) 600 mg PO Q6HR PRN PRN Reason: Pain Last Admin: 12/31/16 15:38 Dose: 600 mg Levothyroxine Sodium (Synthroid) 100 mcg PO 0600 [facility] Last Admin: 12/31/16 06:07 Dose: 100 mcg Lisinopril (Zestril) 10 mg PO [facility] Last Admin: 12/31/16 20:13 Dose: 10 mg Multivitamins (Theragran) 1 each PO 1200 [facility] Non-Formulary Medication (Difluprednate [Durezol]) 1 drop RIGHT EYE MOFR [facility] Pantoprazole Sodium (Protonix) 40 mg PO AC-BRKFST [facility] Polyethylene Glycol (Miralax) 17 gm PO DAILY [facility] Last Admin: 12/31/16 12:30 Dose: 17 gm Home Medications Medication Instructions Recorded Confirmed Type Atenolol [Tenormin] 50 mg PO DAILY 01/21/14 12/30/16 History Benazepril [Lotensin] 10 mg PO 01/21/14 12/30/16 History Difluprednate [Durezol] 1 drop RIGHT EYE MOFR 01/21/14 12/30/16 History Esomeprazole Magnesium [NexIUM] 40 mg PO DAILY 01/21/14 12/30/16 History Famotidine [Pepcid] 20 mg PO HS 01/21/14 12/30/16 History Gabapentin [Neurontin] 300 mg PO BID 01/21/14 12/30/16 History Levothyroxine Sodium [Synthroid] 100 mcg PO QAM 01/21/14 12/30/16 History Ezetimibe/Simvastatin [Vytorin 1 tab PO HS 05/10/15 12/30/16 History 10-20 mg Tablet] Aspirin EC [Ecotrin] 325 mg PO HS 12/30/16 12/30/16 History Calcium Carbonate/Vitamin D3 2 tab PO DAILY 12/30/16 12/30/16 History [Calcium 600-Vit D3 800 Tab] Furosemide [Lasix] 20 mg PO QAM 12/30/16 12/30/16 History Multivitamins, Thera [Multivitamin 1 tab PO DAILY 12/30/16 12/30/16 History (formulary)] Nitrofurantoin Monohyd/M-Cryst 100 mg PO Q12HR 12/30/16 12/30/16 History [Macrobid] Allergies Allergy/AdvReac Type Severity Reaction Status Date / Time Penicillins Allergy Unknown Swelling Verified 12/24/16 22:30 Physical Exam Vitals: Vital Signs Temp Pulse Pulse Resp BP BP Pulse Ox 12/31/16 15:03 16 12/31/16 07:00 97.6 F 60 16 109/59 95 12/31/16 00:00 70 16 12/30/16 23:41 98.9 F 70 16 131/61 92 L 12/30/16 23:08 100.0 F H 76 18 132/66 95 12/30/16 22:08 100.9 F H 75 18 136/65 96 Intake and Output 12/31/16 12/31/16 12/31/16 06:59 14:59 22:59 Intake Total 800 Balance 800 Intake: Intake, IV Titration 800 Amount Sodium Chloride 0.9% 1, 800 000 ml @ 100 mls/hr IV . Q10H ONE Rx#:[id number] Other: Voiding Method Toilet Toilet Toilet # Voids 1 Weight 64.41 kg 64.41 kg 64.41 kg Patient Weight 01/01/17 06:59 Weight 64.41 kg Is an 71-year-old woman who relates she is more comfortable tonight and she's been HEENT: Anicteric conjunctiva are pink and moist nasal mucosa grossly intact without significant lesions, there is no thrush. Neck: The neck is supple without significant lymphadenopathy or thyromegaly. Lungs: Good bilateral air entry without significant crackles or wheezing. There is no significant bronchial sounds. There is no egophony or dullness. Heart: Regular rate and rhythm with an audible S1-S2, no S3 no S4. Aortic click is easily heard no setting murmur Abdomen: Positive bowel sounds soft and nontender without palpable masses or organomegaly. There was no guarding or rebound. There is distinct right lower quadrant discomfort and some right flank pain. No bruising of the abdominal wall or flank is seen, there is also some mild suprapubic tenderness. Extremities: The upper extremities have excellent pulses they are symmetric, no significant petechiae or telangiectasia. No splinter hemorrhages were noted. The lower extremities are free from significant edema. The peripheral pulses were 2+ and symmetric. Neuro: Awake alert oriented to person place and time. There are no acute new gross focal sensory motor deficits. Results CBC & Chem 7: 12/30/16 20:10 12/30/16 20:10 Labs: Microbiology - Last 24 Hours (Table) 12/30/16 20:10 Urine Culture - Final Urine,Clean Catch Laboratory Results WBC 11.8 k/uL (3.8-10.6) H 12/30/16 20:10 RBC 4.27 m/uL (3.80-5.40) 12/30/16 20:10 Hgb 12.7 gm/dL (11.4-16.0) 12/30/16 20:10 Hct 38.5 % (34.0-46.0) 12/30/16 20:10 MCV 90.2 fL (80.0-100.0) 12/30/16 20:10 MCH 29.8 pg (25.0-35.0) 12/30/16 20:10 MCHC 33.0 g/dL (31.0-37.0) 12/30/16 20:10 RDW 13.3 % (11.5-15.5) 12/30/16 20:10 Plt Count 270 k/uL (150-450) 12/30/16 20:10 Neutrophils % 93 % 12/30/16 20:10 Lymphocytes % 3 % 12/30/16 20:10 Monocytes % 2 % 12/30/16 20:10 Eosinophils % 2 % 12/30/16 20:10 Basophils % 0 % 12/30/16 20:10 Neutrophils # 11.0 k/uL (1.3-7.7) H 12/30/16 20:10 Lymphocytes # 0.3 k/uL (1.0-4.8) L 12/30/16 20:10 Monocytes # 0.2 k/uL (0-1.0) 12/30/16 20:10 Eosinophils # 0.2 k/uL (0-0.7) 12/30/16 20:10 Basophils # 0.0 k/uL (0-0.2) 12/30/16 20:10 PT 9.9 sec (9.0-12.0) 12/30/16 20:10 INR 1.0 (<1.1) 12/30/16 20:10 APTT 24.4 sec (22.0-30.0) 12/30/16 20:10 Sodium 135 mmol/L (137-145) L 12/30/16 20:10 Potassium 4.2 mmol/L (3.5-5.1) 12/30/16 20:10 Chloride 97 mmol/L (98-107) L 12/30/16 20:10 Carbon Dioxide 25 mmol/L (22-30) 12/30/16 20:10 Anion Gap 13 mmol/L 12/30/16 20:10 BUN 11 mg/dL (7-17) 12/30/16 20:10 Creatinine 0.70 mg/dL (0.52-1.04) 12/30/16 20:10 Est GFR (MDRD) Af Amer >60 (>60 ml/min/1.73 sqM) 12/30/16 20:10 Est GFR (MDRD) Non-Af >60 (>60 ml/min/1.73 sqM) 12/30/16 20:10 Glucose 128 mg/dL (74-99) H 12/30/16 20:10 Plasma Lactic Acid Govind 1.2 mmol/L (0.7-2.0) 12/30/16 20:10 Calcium 10.1 mg/dL (8.4-10.2) 12/30/16 20:10 Total Bilirubin 0.4 mg/dL (0.2-1.3) 12/30/16 20:10 AST 31 U/L (14-36) 12/30/16 20:10 ALT 41 U/L (9-52) 12/30/16 20:10 Alkaline Phosphatase 93 U/L (38-126) 12/30/16 20:10 Total Protein 7.7 g/dL (6.3-8.2) 12/30/16 20:10 Albumin 4.5 g/dL (3.5-5.0) 12/30/16 20:10 Urine Color Yellow 12/30/16 20:10 Urine Appearance Clear (Clear) 12/30/16 20:10 Urine pH 8.5 (5.0-8.0) H 12/30/16 20:10 Ur Specific [place] 1.009 (1.001-1.035) 12/30/16 20:10 Urine Protein Negative (Negative) 12/30/16 20:10 Urine Glucose (UA) Negative (Negative) 12/30/16 20:10 Urine Ketones Negative (Negative) 12/30/16 20:10 Urine Blood Negative (Negative) 12/30/16 20:10 Urine Nitrite Negative (Negative) 12/30/16 20:10 Urine Bilirubin Negative (Negative) 12/30/16 20:10 Urine Urobilinogen <2.0 mg/dL (<2.0) 12/30/16 20:10 Ur Leukocyte Esterase Negative (Negative) 12/30/16 20:10 Microbiology 12/30/16 20:10 Urine,Clean Catch Urine Culture - Final Assessment and Plan (1) Pyelonephritis Narrative/Plan: Pleasant 71-year-old woman presents to hospital with a several-day history of urinary symptoms. They progressed. She had increasing right flank pain. Some hematuria that was quite disconcerting. She was placed on antibiotic therapy the outpatient setting. Despite to metabolic she had increasing symptoms.. Temperature above 102 with some chills. Increasing discomfort. She is now feeling better since having hydration, altered antibiotic therapy and pain control. The culture did show evidence of an Escherichia coli but does have an odd resistance pattern, and constantly carbapenem was utilized in case it turns out to be an ESBL and check urine of note the follow-up cultures turning out to be negative. The patient started to have some improvement. Ultrasound failed to reveal marked abnormality. Computed tomography scan did not reveal evidence of stone or hydronephrosis. Consequently his consistent with just a pyelonephritis to the right kidney without an obstructive process. We'll expect with hydration and pain management shall be improved in the next several days. Fevers are starting to improve which is quite optimistic since often fever can occur for many days with pyelonephritis. Status: Acute (2) Fever Status: Acute (3) Leukocytosis Status: Acute
[2017-01-01] MEDS: ASPIRIN 325 MG TAB PO SCH ×2 (00:02→20:35)
[2017-01-01] MEDS: SODIUM CHLORIDE 0.9% 1,000 ML IV ONE (00:03)
[2017-01-01] MEDS: LEVOTHYROXINE 100 MCG TAB PO SCH (06:16)
[2017-01-01 08:08] LABS: Basophils % (A) 0 %; CH 30.3; CHCM 33.4; Eosinophils # (A) 0.4 k/uL (0-0.7); Eosinophils % (A) 8 %; HCT 33.8 % (34.0-46.0); Luc # (Auto) 0.11; Luc % (Auto) 2; Lymphocytes # (A) 0.7 k/uL (1.0-4.8); Lymphocytes % (A) 14 %; MCH 29.8 pg (25.0-35.0); MCHC 32.6 g/dL (31.0-37.0); MCV 91.2 fL (80.0-100.0); Mean Platelet Volume 6.8; Monocytes # (A) 0.3 k/uL (0-1.0); Monocytes % (A) 5 %; Neutrophils # (A) 3.4 k/uL (1.3-7.7); Neutrophils % (A) 70 %; RBC 3.71 m/uL (3.80-5.40); RDW 13.1 % (11.5-15.5); WBC 4.9 k/uL (3.8-10.6); WBC (Perox) 5.09
[2017-01-01 08:27] LABS: ALT 51 U/L (9-52); AST 61 U/L (14-36); Alkaline Phosphatase 62 U/L (38-126); Anion Gap 8 mmol/L; Blood Urea Nitrogen 10 mg/dL (7-17); Calcium 8.5 mg/dL (8.4-10.2); Carbon Dioxide 25 mmol/L (22-30); Chloride 105 mmol/L (98-107); Glucose 87 mg/dL (74-99); Non-African American GFR(MDRD) >60 (>60 ml/min/1.73 sqM); Potassium 4.6 mmol/L (3.5-5.1); Sodium 138 mmol/L (137-145); Total Bilirubin 0.3 mg/dL (0.2-1.3)
[2017-01-01] MEDS: PANTOPRAZOLE 40 MG TABLET PO SCH (09:12)
[2017-01-01] MEDS: GABAPENTIN 300 MG CAP PO SCH ×2 (09:12→20:34)
[2017-01-01] MEDS: FUROSEMIDE 20 MG TAB PO SCH (09:12)
[2017-01-01] MEDS: ATENOLOL 50 MG TAB PO SCH (09:12)
[2017-01-01] MEDS: POLYETHYLENE GLYCOL 3350 17 GM POWD.PACK PO SCH (09:12)
[2017-01-01] MEDS ORDERED: MAGNESIUM HYDROXIDE 2,400 MG/10 ML CUP PO PRN (09:27)
[2017-01-01] MEDS: ERTAPENEM 1 GM in SODIUM CHLORIDE 0.9% 50 ML IVPB SCH (09:59)
--- NOTE | 2017-01-01 11:59 | P.PN ---
Subjective H&P Date: 12/31/16: 71-year-old female one of my office patient with known for long time known to have valvular heart disease post aortic valve placement and mitral valve disease as well who is known to have history of hypertension hyperlipidemia hypothyroidism and chronic neuropathy. Patient was diagnosed on 01/23/2017 with UTI and hematuria at the time urine culture was done result came back positive for E. coli with susceptibility to multiple antibiotics one of them ciprofloxacin and Macrodantin. Patient called my partner on Saturday not feeling well started having low-grade temperature with burning urination and slight discomfort toward the end of urination with no hematuria this time. My partner end up calling in Macrodantin 100 mg twice a day which patient is taking developed to have worsening symptoms with worsening right-sided flank pain radiating toward the groin area along with fever and chills. Ended up coming to the emergency department at [facility] surprisingly her urine test came back negative for the time with mildly elevated white blood cell respiratory lab did not look bad. Patient blood pressure and pulse rates were slightly bit off consistent with sepsis. Patient was started on Rocephin IV. Infectious disease were consulted patient probably have relapse of her symptom for possible foreign body including kidney stone. Ultrasound of the kidney will be done and furthermore patient might require CT without contrast as a protocol for kidney stone. 01/01: The patient had a ultrasound of her kidneys/renal and bladder showed there may be small septation within the right renal cyst. CT of the abdomen/ pelvis shows minimal subsegmental atelectasis at the left lung base. Tiny pancreatic calcification could relate to previous inflammatory disease. Small right renal cortical cyst. Atherosclerotic vascular disease. Constipation. No evidence of renal obstruction. Possible less than 1 mm nonobstructing left renal calculi. The patient was consulted by infectious disease. The patient is receiving ertapenem IV. Will continue to receive IV antibiotics and hydration. Objective - Vital Signs Vital signs: Vital Signs Temp 98.1 F 01/01/17 07:00 Pulse 61 01/01/17 07:00 Resp 16 01/01/17 07:00 BP 155/70 01/01/17 07:00 Pulse Ox 99 01/01/17 07:00 Intake & Output 12/31/16 01/01/17 01/01/17 18:59 06:59 18:59 Intake Total 800 2350 Balance 800 2350 Weight 64.41 kg Intake: Intake, IV Titration 800 1200 Amount Sodium Chloride 0.9% 1, 800 1200 000 ml @ 100 mls/hr IV . Q10H ONE Rx#:[id number] Oral 1150 Other: Voiding Method Toilet Toilet # Voids 5 - Exam - Constitutional General appearance: no average body habitus, cooperative, no disheveled, no mild distress, no morbidly obese, no acute distress, no obese, no severe distress, no thin - EENT Eyes: no abnormal pupil, no anicteric sclerae, no disc margins sharp, no edentulous, no EOMI, no PERRLA, no fundus normal, no photophobia, no dentition normal, no poor dentition, no ptosis, no scleral icterus, normal appearance ENT: no hard of hearing, no hearing grossly normal, no NA/AT, normal oropharynx , no other, no pharyngeal erythema, no thrush, no tonsillar exudates, no tonsillar swelling Ears: bilateral: normal - Neck Neck: no lymphadenopathy, normal ROM, no other, no rigidity, no stridor, no thyromegaly Carotids: bilateral: upstroke normal Thyroid: bilateral: normal size - Respiratory Respiratory: bilateral: CTA, diminished - Cardiovascular Rhythm: regular Heart sounds: normal: S1 Abnormal Heart Sounds: systolic murmur, S3 Gallop - Gastrointestinal General gastrointestinal: no absent bowel sounds, decreased bowel sounds, no distended, hepatomegaly, hyperactive bowel sounds, no normal bowel sounds, no organomegaly, no rigid, no scaphoid, soft, splenomegaly, no tenderness, no umbilical hernia, no ventral hernia - Integumentary Integumentary: no calor, no cellulitis, no cyanotic, no decreased turgor, flushed, no jaundiced, normal, no normal turgor, pale, rash, no ulcer - Neurologic Neurologic: CNII-XII intact - Musculoskeletal Musculoskeletal: gait normal, generalized weakness, no strength equal bilaterally, no right sided weakness, no left sided weakness - Psychiatric Psychiatric: A&O x's 3, appropriate affect, no intact judgment & insight - Labs CBC & Chem 7: 01/01/17 07:28 01/01/17 07:28 Labs: Abnormal Lab Results - Last 24 Hours (Table) 01/01/17 01/01/17 Range/Units 07:28 07:28 RBC 3.71 L (3.80-5.40) m/uL Hgb 11.0 L (11.4-16.0) gm/dL Hct 33.8 L (34.0-46.0) % Lymphocytes # 0.7 L (1.0-4.8) k/uL AST 61 H (14-36) U/L Total Protein 6.0 L (6.3-8.2) g/dL Albumin 3.1 L (3.5-5.0) g/dL Microbiology - Last 24 Hours (Table) 12/30/16 20:10 Blood Culture - Preliminary Blood No Growth after 24 hours 12/30/16 20:10 Urine Culture - Final Urine,Clean Catch Assessment and Plan Plan: Plan: 1 sepsis/pyelonephritis of the right side: Patient was started on Rocephin initially and changed to ertapenem seen by ID. Continue to watch for new culture result an infectious disease consult. 2 recurrent UTI with failure to outpatient treatment: CT and ultrasound did not show any evidence of stone or hydronephrosis.. 3 valvular heart disease: Post aortic valve placement and mitral valve disease has been seeing cardiology regular basis patient is doing very well. 4 hypertension: Has been on Benzapril 10 mg a day and atenolol 50 mg daily. 5 chronic neuropathy: Has been on gabapentin 300 mg twice a day. 6 hypothyroidism: Continue patient on Synthroid 100 g daily. 7 hyperlipidemia: On Vytorin 10/20 mg daily. 8 chronic fluid retention: Patient has been on furosemide which began been treated for chronic venostasis. 9 arrhythmia: Has been on atenolol 50 mg daily. 10 GI prophylaxis: Patient will be continue on Nexium 40 mg daily. 11 DVT prophylaxis: Patient will be continue on heparin 5000 units subcutaneous twice a day along with knee-high BARBI hose. Status: Full code. Expectation from's admission: Patient in the hospital for more than 2 nights. The above impression and plan of care have been discussed and directed by signing physician. Fifi Montelongo nurse practitioner acting as scribe for signing physician.
[2017-01-01] MEDS ORDERED: CALCIUM CARB-VIT D 500MG-200UN 1 EACH TAB PO SCH (12:00)
[2017-01-01] MEDS ORDERED: MULTIVITAMINS, THERA 1 EACH TAB PO SCH (12:00)
[2017-01-01] MEDS: BENZOCAINE 20% HEMORRHOIDAL OINT 28GM RECTAL SCH (17:46)
[2017-01-01] MEDS: HYDROmorphone 1 MG/ML 1 ML SYRINGE IVP PRN (20:32)
[2017-01-01] MEDS: LISINOPRIL 10 MG TAB PO SCH (20:34)
[2017-01-01] MEDS: EZETIMIBE 10 MG TAB PO SCH (20:34)
[2017-01-01] MEDS: ATORVASTATIN 10 MG TAB PO SCH (20:35)
[2017-01-01] MEDS: FAMOTIDINE 20 MG TAB PO SCH (20:35)
--- NOTE | 2017-01-01 22:40 | P.PN ---
Subjective Principal diagnosis: Hematuria and right flank pain with fever Pleasant 71-year-old female known to the infectious disease service from the difficulties with her left knee. 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 Was treated with antibiotic therapies. That had a reimplanted. It would be in 2013. Since then she had loosening of the hardware. In a different type of prosthesis was placed in an outside hospital. The knee has somewhat poor range of motion but she is able to walk quickly and does not have pain. She however developed a week ago symptoms of urinary infection with hematuria and some right flank pain. She had some chills without rigors and is felt poorly. Appetites been poor but no nausea or emesis. She's also had some suprapubic tenderness. She was cared for in the outside setting and placed on antibiotic therapy. The patient was still having symptoms antibiotic therapy was changed to Macrodantin. Despite this she had worsening of her symptoms and presented to emergency center and has now been admitted. She relates that she received some morphine has helped her pain and her headache and feels better tonight. Overall does feel better. With fluids and antibiotics she's had decrease of her symptoms. Not having significant fever or chill. The urine culture from 12/24 does reveal evidence of E. coli that has resistance to sulfa, gentamicin, ampicillin and Unasyn. Patient is definitely feeling better today. Pain is improved. Eating relatively well. The pain in the right flank and right lower quadrant is markedly improved. Denying fevers chills or rigors today. Objective - Vital Signs Vital signs: Vital Signs Temp 98.2 F 01/01/17 15:00 Pulse 66 01/01/17 16:00 Resp 16 01/01/17 16:00 BP 109/58 01/01/17 15:00 Pulse Ox 97 01/01/17 15:00 Intake & Output 01/01/17 01/01/17 01/02/17 06:59 18:59 06:59 Intake Total 2350 360 Balance 2350 360 Intake: Intake, IV Titration 1200 Amount Sodium Chloride 0.9% 1, 1200 000 ml @ 100 mls/hr IV . Q10H ONE Rx#:[id number] Oral 1150 360 Other: Voiding Method Toilet Toilet # Voids 5 5 - Exam Is an 71-year-old woman who relates she is more comfortable tonight and she's been HEENT: Anicteric conjunctiva are pink and moist nasal mucosa grossly intact without significant lesions, there is no thrush. Neck: The neck is supple without significant lymphadenopathy or thyromegaly. Lungs: Good bilateral air entry without significant crackles or wheezing. There is no significant bronchial sounds. There is no egophony or dullness. Heart: Regular rate and rhythm with an audible S1-S2, no S3 no S4. Aortic click is easily heard no setting murmur Abdomen: Positive bowel sounds soft and nontender without palpable masses or organomegaly. There was no guarding or rebound. There is mild right lower quadrant discomfort and some right flank pain. No bruising of the abdominal wall or flank is seen, there is also some mild suprapubic tenderness. Extremities: The upper extremities have excellent pulses they are symmetric, no significant petechiae or telangiectasia. No splinter hemorrhages were noted. The lower extremities are free from significant edema. The peripheral pulses were 2+ and symmetric. Neuro: Awake alert oriented to person place and time. There are no acute new gross focal sensory motor deficits. - Labs CBC & Chem 7: 01/01/17 07:28 01/01/17 07:28 Labs: Abnormal Lab Results - Last 24 Hours (Table) 01/01/17 01/01/17 Range/Units 07:28 07:28 RBC 3.71 L (3.80-5.40) m/uL Hgb 11.0 L (11.4-16.0) gm/dL Hct 33.8 L (34.0-46.0) % Lymphocytes # 0.7 L (1.0-4.8) k/uL AST 61 H (14-36) U/L Total Protein 6.0 L (6.3-8.2) g/dL Albumin 3.1 L (3.5-5.0) g/dL Microbiology - Last 24 Hours (Table) 12/30/16 20:10 Blood Culture - Preliminary Blood No Growth after 48 hours 12/30/16 20:10 Urine Culture - Final Urine,Clean Catch Laboratory Results WBC 4.9 k/uL (3.8-10.6) 01/01/17 07:28 RBC 3.71 m/uL (3.80-5.40) L 01/01/17 07:28 Hgb 11.0 gm/dL (11.4-16.0) L 01/01/17 07:28 Hct 33.8 % (34.0-46.0) L 01/01/17 07:28 MCV 91.2 fL (80.0-100.0) 01/01/17 07:28 MCH 29.8 pg (25.0-35.0) 01/01/17 07:28 MCHC 32.6 g/dL (31.0-37.0) 01/01/17 07:28 RDW 13.1 % (11.5-15.5) 01/01/17 07:28 Plt Count 217 k/uL (150-450) 01/01/17 07:28 Neutrophils % 70 % 01/01/17 07:28 Lymphocytes % 14 % 01/01/17 07:28 Monocytes % 5 % 01/01/17 07:28 Eosinophils % 8 % 01/01/17 07:28 Basophils % 0 % 01/01/17 07:28 Neutrophils # 3.4 k/uL (1.3-7.7) 01/01/17 07:28 Lymphocytes # 0.7 k/uL (1.0-4.8) L 01/01/17 07:28 Monocytes # 0.3 k/uL (0-1.0) 01/01/17 07:28 Eosinophils # 0.4 k/uL (0-0.7) 01/01/17 07:28 Basophils # 0.0 k/uL (0-0.2) 01/01/17 07:28 PT 9.9 sec (9.0-12.0) 12/30/16 20:10 INR 1.0 (<1.1) 12/30/16 20:10 APTT 24.4 sec (22.0-30.0) 12/30/16 20:10 Sodium 138 mmol/L (137-145) 01/01/17 07:28 Potassium 4.6 mmol/L (3.5-5.1) 01/01/17 07:28 Chloride 105 mmol/L (98-107) 01/01/17 07:28 Carbon Dioxide 25 mmol/L (22-30) 01/01/17 07:28 Anion Gap 8 mmol/L 01/01/17 07:28 BUN 10 mg/dL (7-17) 01/01/17 07:28 Creatinine 0.57 mg/dL (0.52-1.04) 01/01/17 07:28 Est GFR (MDRD) Af Amer >60 (>60 ml/min/1.73 sqM) 01/01/17 07:28 Est GFR (MDRD) Non-Af >60 (>60 ml/min/1.73 sqM) 01/01/17 07:28 Glucose 87 mg/dL (74-99) 01/01/17 07:28 Plasma Lactic Acid Govind 1.2 mmol/L (0.7-2.0) 12/30/16 20:10 Calcium 8.5 mg/dL (8.4-10.2) 01/01/17 07:28 Total Bilirubin 0.3 mg/dL (0.2-1.3) 01/01/17 07:28 AST 61 U/L (14-36) H 01/01/17 07:28 ALT 51 U/L (9-52) 01/01/17 07:28 Alkaline Phosphatase 62 U/L (38-126) 01/01/17 07:28 Total Protein 6.0 g/dL (6.3-8.2) L 01/01/17 07:28 Albumin 3.1 g/dL (3.5-5.0) L 01/01/17 07:28 Urine Color Yellow 12/30/16 20:10 Urine Appearance Clear (Clear) 12/30/16 20:10 Urine pH 8.5 (5.0-8.0) H 12/30/16 20:10 Ur Specific [place] 1.009 (1.001-1.035) 12/30/16 20:10 Urine Protein Negative (Negative) 12/30/16 20:10 Urine Glucose (UA) Negative (Negative) 12/30/16 20:10 Urine Ketones Negative (Negative) 12/30/16 20:10 Urine Blood Negative (Negative) 12/30/16 20:10 Urine Nitrite Negative (Negative) 12/30/16 20:10 Urine Bilirubin Negative (Negative) 12/30/16 20:10 Urine Urobilinogen <2.0 mg/dL (<2.0) 12/30/16 20:10 Ur Leukocyte Esterase Negative (Negative) 12/30/16 20:10 Microbiology 12/30/16 20:10 Blood Blood Culture - Preliminary No Growth after 48 hours 12/30/16 20:10 Urine,Clean Catch Urine Culture - Final Assessment and Plan (1) Pyelonephritis Narrative/Plan: Pleasant 71-year-old woman presents to hospital with a several-day history of urinary symptoms. They progressed. She had increasing right flank pain. Some hematuria that was quite disconcerting. She was placed on antibiotic therapy the outpatient setting. Despite to metabolic she had increasing symptoms.. Temperature above 102 with some chills. Increasing discomfort. She is now feeling better since having hydration, altered antibiotic therapy and pain control. The culture did show evidence of an Escherichia coli but does have an odd resistance pattern, and constantly carbapenem was utilized in case it turns out to be an ESBL and check urine of note the follow-up cultures turning out to be negative. The patient started to have some improvement. Ultrasound failed to reveal marked abnormality. Computed tomography scan did not reveal evidence of stone or hydronephrosis. Consequently is consistent with pyelonephritis to the right kidney without an obstructive process. We'll expect with hydration and pain management shall be improved in the next several days. Fevers have now resolved. Patient is doing much better. If she has further improvement tomorrow they consider discharge home on oral ciprofloxacin 500 mg every 12 hours for 10 days at discharge. Status: Acute (2) Fever Status: Acute (3) Leukocytosis Status: Acute
[2017-01-02] MEDS: SODIUM CHLORIDE 0.9% 1,000 ML IV ONE (00:23)
[2017-01-02] MEDS: LEVOTHYROXINE 100 MCG TAB PO SCH (06:00)
[2017-01-02 07:27] LABS: Basophils % (A) 1 %; CH 29.9; CHCM 32.5; Eosinophils # (A) 0.3 k/uL (0-0.7); Eosinophils % (A) 8 %; HGB 10.6 gm/dL (11.4-16.0); Luc # (Auto) 0.07; Luc % (Auto) 2; Lymphocytes # (A) 0.7 k/uL (1.0-4.8); Lymphocytes % (A) 18 %; MCH 30.6 pg (25.0-35.0); MCHC 33.1 g/dL (31.0-37.0); MCV 92.3 fL (80.0-100.0); Mean Platelet Volume 7.3; Monocytes # (A) 0.2 k/uL (0-1.0); Monocytes % (A) 7 %; Neutrophils # (A) 2.5 k/uL (1.3-7.7); Neutrophils % (A) 65 %; RBC 3.46 m/uL (3.80-5.40); RDW 13.3 % (11.5-15.5); WBC 3.8 k/uL (3.8-10.6); WBC (Perox) 3.93
[2017-01-02 07:41] LABS: ALT 45 U/L (9-52); AST 40 U/L (14-36); Alkaline Phosphatase 56 U/L (38-126); Anion Gap 6 mmol/L; Blood Urea Nitrogen 9 mg/dL (7-17); Calcium 8.1 mg/dL (8.4-10.2); Carbon Dioxide 23 mmol/L (22-30); Chloride 108 mmol/L (98-107); Glucose 87 mg/dL (74-99); Non-African American GFR(MDRD) >60 (>60 ml/min/1.73 sqM); Potassium 4.3 mmol/L (3.5-5.1); Sodium 137 mmol/L (137-145); Total Bilirubin 0.3 mg/dL (0.2-1.3); Total Protein 5.8 g/dL (6.3-8.2)
[2017-01-02] MEDS: GABAPENTIN 300 MG CAP PO SCH (07:44)
[2017-01-02] MEDS: POLYETHYLENE GLYCOL 3350 17 GM POWD.PACK PO SCH (07:44)
[2017-01-02] MEDS: BENZOCAINE 20% HEMORRHOIDAL OINT 28GM RECTAL SCH (07:44)
[2017-01-02] MEDS: FUROSEMIDE 20 MG TAB PO SCH (07:44)
[2017-01-02] MEDS: PANTOPRAZOLE 40 MG TABLET PO SCH (07:45)
[2017-01-02] MEDS: ATENOLOL 50 MG TAB PO SCH (07:45)
[2017-01-02] MEDS: ERTAPENEM 1 GM in SODIUM CHLORIDE 0.9% 50 ML IVPB SCH (07:48)
[2017-01-02 08:16] VITALS: BP 142/82; PULSE 63; RESP 18; TEMP 97.1
--- NOTE | 2017-01-02 16:21 | P.DS ---
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 Patient was diagnosed on 01/23/2017 with UTI and hematuria at the time urine culture was done result came back positive for E. coli with susceptibility to multiple antibiotics one of them ciprofloxacin and Macrodantin. Patient called my partner on Saturday not feeling well started having low-grade temperature with burning urination and slight discomfort toward the end of urination with no hematuria this time. My partner end up calling in Macrodantin 100 mg twice a day which patient is taking developed to have worsening symptoms with worsening right-sided flank pain radiating toward the groin area along with fever and chills. Ended up coming to the emergency department at [facility] surprisingly her urine test came back negative for the time with mildly elevated white blood cell respiratory lab did not look bad. Patient blood pressure and pulse rates were slightly bit off consistent with sepsis. Patient was started on Rocephin IV. Infectious disease were consulted patient probably have relapse of her symptom for possible foreign body including kidney stone. Ultrasound of the kidney will be done and furthermore patient might require CT without contrast as a protocol for kidney stone. 01/01: The patient had a ultrasound of her kidneys/renal and bladder showed there may be small septation within the right renal cyst. CT of the abdomen/ pelvis shows minimal subsegmental atelectasis at the left lung base. Tiny pancreatic calcification could relate to previous inflammatory disease. Small right renal cortical cyst. Atherosclerotic vascular disease. Constipation. No evidence of renal obstruction. Possible less than 1 mm nonobstructing left renal calculi. The patient was consulted by infectious disease. The patient is receiving ertapenem IV. Will continue to receive IV antibiotics and hydration. 01/02: Patient remains afebrile. She is still having some burning with urination , but no flank or back pain. She was consulted by Dr. Canas who recommended that she receive Cipro for the next 10 days. Discharge diagnoses: 1 sepsis/pyelonephritis of the right side: Patient was sent home with Cipro 500mg BID x 10 days 2 recurrent UTI with failure to outpatient treatment: CT and ultrasound did not show any evidence of stone or hydronephrosis. 3 valvular heart disease: Post aortic valve placement and mitral valve disease has been seeing cardiology regular basis patient is doing very well. 4 hypertension: Has been on Benzapril 10 mg a day and atenolol 50 mg daily. 5 chronic neuropathy: Has been on gabapentin 300 mg twice a day. 6 hypothyroidism: Continue patient on Synthroid 100 g daily. 7 hyperlipidemia: On Vytorin 10/20 mg daily. 8 chronic fluid retention: Patient has been on furosemide which began been treated for chronic venostasis. 9 arrhythmia: Has been on atenolol 50 mg daily. Status: Full code. The above impression and plan of care have been discussed and directed by signing physician. Fifi Montelongo nurse practitioner acting as scribe for signing physician. Patient Condition at Discharge: Good Plan - Discharge Summary New Discharge Prescriptions: New Ciprofloxacin HCl [Cipro] 500 mg PO Q12HR #20 tablet Acetaminophen Tab [Tylenol] 650 mg PO Q4HR PRN tab PRN Reason: Fever And/ Or Pain Ibuprofen [Motrin] 600 mg PO Q6HR PRN tab PRN Reason: Pain Ciprofloxacin HCl [Cipro] 500 mg PO Q12HR #20 tablet Continue Levothyroxine Sodium [Synthroid] 100 mcg PO QAM Gabapentin [Neurontin] 300 mg PO BID Famotidine [Pepcid] 20 mg PO HS Benazepril [Lotensin] 10 mg PO HS Esomeprazole Magnesium [NexIUM] 40 mg PO DAILY Atenolol [Tenormin] 50 mg PO DAILY Difluprednate [Durezol] 1 drop RIGHT EYE MOFR Ezetimibe/Simvastatin [Vytorin 10-20 mg Tablet] 1 tab PO HS Calcium Carbonate/Vitamin D3 [Calcium 600-Vit D3 800 Tab] 2 tab PO DAILY Furosemide [Lasix] 20 mg PO QAM Multivitamins, Thera [Multivitamin (formulary)] 1 tab PO DAILY Aspirin EC [Ecotrin] 325 mg PO HS Discontinued Nitrofurantoin Monohyd/M-Cryst [Macrobid] 100 mg PO Q12HR Discharge Medication List Atenolol [Tenormin] 50 mg PO DAILY 01/21/14 [History] Benazepril [Lotensin] 10 mg PO HS 01/21/14 [History] Difluprednate [Durezol] 1 drop RIGHT EYE MOFR 01/21/14 [History] Esomeprazole Magnesium [NexIUM] 40 mg PO DAILY 01/21/14 [History] Famotidine [Pepcid] 20 mg PO HS 01/21/14 [History] Gabapentin [Neurontin] 300 mg PO BID 01/21/14 [History] Levothyroxine Sodium [Synthroid] 100 mcg PO QAM 01/21/14 [History] Ezetimibe/Simvastatin [Vytorin 10-20 mg Tablet] 1 tab PO HS 05/10/15 [History] Aspirin EC [Ecotrin] 325 mg PO HS 12/30/16 [History] Calcium Carbonate/Vitamin D3 [Calcium 600-Vit D3 800 Tab] 2 tab PO DAILY [History] Furosemide [Lasix] 20 mg PO QAM 12/30/16 [History] Multivitamins, Thera [Multivitamin (formulary)] 1 tab PO DAILY 12/30/16 [History ] Ciprofloxacin HCl [Cipro] 500 mg PO Q12HR #20 tablet 01/01/17 [Rx] Acetaminophen Tab [Tylenol] 650 mg PO Q4HR PRN tab 01/02/17 [Rx] Ciprofloxacin HCl [Cipro] 500 mg PO Q12HR #20 tablet 01/02/17 [Rx] Ibuprofen [Motrin] 600 mg PO Q6HR PRN tab 01/02/17 [Rx] Follow up Appointment(s)/Referral(s): Alban Nelson MD [Primary Care Provider] - 01/04/17 10:30 am Patient Instructions/Handouts: Ciprofloxacin (By mouth), Urinary Tract Infection in Women (DC), Fever in Adults (GEN), Leukocytosis (DC) Discharge Disposition: HOME SELF-CARE
== END 2017-01-02 10:30 | disposition home or self-care (01) | DRG 872 ==
LOC: EC 19:44 → 5MS5E 23:10
PROVIDERS: ADMIT Internal Medicine; ATTEND Internal Medicine
DX: A41.9 Sepsis, unspecified organism (principal); G62.9 Polyneuropathy, unspecified; N39.0 Urinary tract infection, site not specified; N12 Tubulo-interstitial nephritis, not specified as acute or chronic; I34.1 Nonrheumatic mitral (valve) prolapse; I10 Essential (primary) hypertension; N28.1 Cyst of kidney, acquired; N20.0 Calculus of kidney; B96.20 Unspecified Escherichia coli [E. coli] as the cause of diseases classified elsewhere; K21.9 Gastro-esophageal reflux disease without esophagitis; J45.909 Unspecified asthma, uncomplicated; R31.9 Hematuria, unspecified; K59.00 Constipation, unspecified; R51 Headache; E03.9 Hypothyroidism, unspecified; E78.5 Hyperlipidemia, unspecified; R60.9 Edema, unspecified; R53.1 Weakness; I49.9 Cardiac arrhythmia, unspecified; I87.8 Other specified disorders of veins; R93.3 Abnormal findings on diagnostic imaging of other parts of digestive tract; M19.90 Unspecified osteoarthritis, unspecified site; Z88.0 Allergy status to penicillin; Z96.652 Presence of left artificial knee joint; Z79.899 Other long term (current) drug therapy; Z82.49 Family history of ischemic heart disease and other diseases of the circulatory system; Z87.440 Personal history of urinary (tract) infections; Z95.2 Presence of prosthetic heart valve; Z80.6 Family history of leukemia; Z86.69 Personal history of other diseases of the nervous system and sense organs; Z86.19 Personal history of other infectious and parasitic diseases; Z79.82 Long term (current) use of aspirin; Z16.29 Resistance to other single specified antibiotic; Z16.11 Resistance to penicillins
CPT/HCPCS: 36415; 71020; 74176; 76770; 80053; 81003; 83605; 85025; 85610; 85730; 87040; 87086; 93005; 96365; 96375; 99285

== ENCOUNTER 2017-02-16 14:24 | Emergency (ER) | payer MEDICARE, BC ==
[2017-02-16 14:50] VITALS: RESP 18; TEMP 98
[2017-02-16 15:23] VITALS: BP 141/72; PULSE 63
[2017-02-16 15:23] LABS: Basophils % (A) 1 %; CHCM 33.8; Eosinophils # (A) 0.2 k/uL (0-0.7); Eosinophils % (A) 3 %; HCT 36.6 % (34.0-46.0); HDW 2.44; Luc # (Auto) 0.11; Luc % (Auto) 2; Lymphocytes # (A) 1.3 k/uL (1.0-4.8); Lymphocytes % (A) 25 %; MCH 29.3 pg (25.0-35.0); MCHC 32.9 g/dL (31.0-37.0); MCV 89.2 fL (80.0-100.0); Mean Platelet Volume 8.1; Monocytes # (A) 0.3 k/uL (0-1.0); Monocytes % (A) 6 %; Neutrophils # (A) 3.4 k/uL (1.3-7.7); Neutrophils % (A) 64 %; RDW 14.3 % (11.5-15.5); WBC 5.2 k/uL (3.8-10.6); WBC (Perox) 5.11
--- NOTE | 2017-02-16 15:24 | ED ---
General Adult HPI - General Chief complaint: Skin/Abscess/Foreign Body Stated complaint: Swollen Feet Time Seen by Provider: 02/16/17 14:58 Source: patient, family, RN notes reviewed Mode of arrival: ambulatory Limitations: no limitations - History of Present Illness Initial comments: 22-year-old female presents for evaluation of rash on her feet. Patient noted the rash over the past one day. It is erythematous and somewhat painful. [place], and believes that the rash may be associated with insect bites or stings. She has had significant local reaction to insect stings in the past. No other known exposure. Patient normally wears shoes, and was barefoot at the beach. Patient denies any other exposure. Patient is accompanied by her . - Related Data Home Medications Medication Instructions Recorded Confirmed Atenolol [Tenormin] 50 mg PO DAILY 01/21/14 12/30/16 Benazepril [Lotensin] 10 mg PO HS 01/21/14 12/30/16 Difluprednate [Durezol] 1 drop RIGHT EYE MOFR 01/21/14 12/30/16 Esomeprazole Magnesium [NexIUM] 40 mg PO DAILY 01/21/14 12/30/16 Famotidine [Pepcid] 20 mg PO HS 01/21/14 12/30/16 Gabapentin [Neurontin] 300 mg PO BID 01/21/14 12/30/16 Levothyroxine Sodium [Synthroid] 100 mcg PO QAM 01/21/14 12/30/16 Ezetimibe/Simvastatin [Vytorin 1 tab PO HS 05/10/15 12/30/16 10-20 mg Tablet] Aspirin EC [Ecotrin] 325 mg PO HS 12/30/16 12/30/16 Calcium Carbonate/Vitamin D3 2 tab PO DAILY 12/30/16 12/30/16 [Calcium 600-Vit D3 800 Tab] Furosemide [Lasix] 20 mg PO QAM 12/30/16 12/30/16 Multivitamins, Thera [Multivitamin 1 tab PO DAILY 12/30/16 12/30/16 (formulary)] Previous Rx's Medication Instructions Recorded Ciprofloxacin HCl [Cipro] 500 mg PO Q12HR #20 tablet 01/01/17 Acetaminophen Tab [Tylenol] 650 mg PO Q4HR PRN tab 06/21/17 Ciprofloxacin HCl [Cipro] 500 mg PO Q12HR #20 tablet 01/02/17 Ibuprofen [Motrin] 600 mg PO Q6HR PRN tab 01/02/17 Allergies Allergy/AdvReac Type Severity Reaction Status Date / Time Penicillins Allergy Unknown Swelling Verified 02/16/17 14:50 Review of Systems ROS Statement: Those systems with pertinent positive or pertinent negative responses have been documented in the HPI. ROS Other: All systems not noted in ROS Statement are negative. Constitutional: Denies: fever, chills Respiratory: Denies: cough, dyspnea Cardiovascular: Denies: chest pain, palpitations Gastrointestinal: Denies: abdominal pain, nausea, vomiting Skin: Reports: rash Hematological/Lymphatic: Denies: easy bleeding, easy bruising Past Medical History Past Medical History: Asthma, GERD/Reflux, Hyperlipidemia, Hypertension, Neurologic Disorder, Osteoarthritis (OA), Thyroid Disorder Additional Past Medical History / Comment(s): Valvular heart disease status post aortic valve replacement, prolapsed mitral valve, seasonal ALLERGIES. History of Any Multi-Drug Resistant Organisms: None Reported Past Surgical History: Orthopedic Surgery Additional Past Surgical History / Comment(s): BLADDER SUSPENSION, AORTIC HEART VALVE REPLACEMENT in 2004, bilateral BUNIONECTOMYS, Past Anesthesia/Blood Transfusion Reactions: No Reported Reaction, Motion Sickness Past Psychological History: No Psychological Hx Reported Smoking Status: Never smoker Past Alcohol Use History: None Reported Past Drug Use History: None Reported - Past Family History Brother(s) Family Medical History: Cancer Additional Family Medical History / Comment(s): LEUKEMIA Father Family Medical History: Coronary Artery Disease (CAD) Mother Family Medical History: Coronary Artery Disease (CAD) Son(s) Family Medical History: Unable to Obtain General Exam Limitations: no limitations General appearance: alert, in no apparent distress Head exam: Present: atraumatic, normocephalic Eye exam: Present: normal appearance, PERRL ENT exam: Present: normal exam, mucous membranes moist Neck exam: Present: normal inspection, full ROM. Absent: tenderness Respiratory exam: Present: normal lung sounds bilaterally. Absent: respiratory distress Cardiovascular Exam: Present: regular rate, normal rhythm, systolic murmur GI/Abdominal exam: Present: soft. Absent: distended, tenderness Neurological exam: Present: alert, oriented X3 Psychiatric exam: Present: normal affect, normal mood Skin exam: Present: warm, dry, erythema (Patient has erythema consistent with mild sunburn on the top of both feet.), petechiae (Petechia noted on bilateral lower extremity, patient believes this is chronic.) Course Vital Signs 02/16/17 02/16/17 14:47 15:22 Temperature 98.0 F Pulse Rate 98 63 Respiratory 18 18 Rate Blood Pressure 171/75 141/72 O2 Sat by Pulse 98 97 Oximetry Medical Decision Making - Medical Decision Making 72-year-old female presenting with erythematous rash on both of her feet. This rash is localized to the dorsal aspect of her feet. She also has some erythema on her right forearm which she is not complaining of. Her who is accompanying her has sunburn to the forehead and face. They were at the [facility] today. She was concerned that this may be an ALLERGIC reaction or insect bite. Exam is more consistent with sunburn. She is instructed to apply aloe vera cream to her feet. CBC was obtained as there is a small nonblanching bowl rash to both of her ankles and bilateral lower extremities. He was concerned that this may be petechia, platelets are 270 which is normal. Patient is encouraged to return to the emergency department with worsening or spreading erythema. Otherwise she will apply aloe vera and follow up with her primary care physician. Diagnosis: Sunburn. - Lab Data Result diagrams: 02/16/17 15:15 Lab Results 02/16/17 Range/Units 15:15 WBC 5.2 (3.8-10.6) k/uL RBC 4.10 (3.80-5.40) m/uL Hgb 12.0 (11.4-16.0) gm/dL Hct 36.6 (34.0-46.0) % MCV 89.2 (80.0-100.0) fL MCH 29.3 (25.0-35.0) pg MCHC 32.9 (31.0-37.0) g/dL RDW 14.3 (11.5-15.5) % Plt Count 273 (150-450) k/uL Neutrophils % 64 % Lymphocytes % 25 % Monocytes % 6 % Eosinophils % 3 % Basophils % 1 % Neutrophils # 3.4 (1.3-7.7) k/uL Lymphocytes # 1.3 (1.0-4.8) k/uL Monocytes # 0.3 (0-1.0) k/uL Eosinophils # 0.2 (0-0.7) k/uL Basophils # 0.0 (0-0.2) k/uL Disposition Clinical Impression: Sunburn Disposition: HOME SELF-CARE Condition: Good Instructions: Sunburn (ED) Referrals: Alban Nelson MD [Primary Care Provider] - 1-2 days Time of Disposition: 15:40
== END 2017-02-16 15:45 | disposition home or self-care (01) ==
LOC: EC 14:24
DX: L55.9 Sunburn, unspecified (principal); J45.909 Unspecified asthma, uncomplicated; E78.5 Hyperlipidemia, unspecified; K21.9 Gastro-esophageal reflux disease without esophagitis; I10 Essential (primary) hypertension; M19.90 Unspecified osteoarthritis, unspecified site; E07.9 Disorder of thyroid, unspecified; Z79.82 Long term (current) use of aspirin; Z79.899 Other long term (current) drug therapy; Z88.0 Allergy status to penicillin
CPT/HCPCS: 36415; 85025; 99283

== ENCOUNTER 2017-04-03 14:07 | Emergency (ER) | payer MEDICARE, BC ==
[2017-04-03 15:34] LABS: Appearance,Urine Clear (Clear); Bilirubin,Urine Negative (Negative); Glucose,Urine (UA) Negative (Negative); Ketones,Urine Negative (Negative); Leukocyte Esterase,Urine Negative (Negative); Nitrite,Urine Negative (Negative); Protein,Urine Negative (Negative); Specific Gravity,Urine 1.012 (1.001-1.035); UA Billing (MACRO vs. MICRO) CHEM; Urobilinogen,Urine <2.0 mg/dL (<2.0)
[2017-04-03] MEDS ORDERED: SODIUM CHLORIDE 0.9% 500 ML IV ONE (15:49)
--- NOTE | 2017-04-03 15:52 | ED ---
General Adult HPI - General Chief complaint: Fever Stated complaint: Fever/UTI Time Seen by Provider: 04/03/17 14:40 Source: patient, RN notes reviewed Mode of arrival: wheelchair Limitations: no limitations - History of Present Illness Initial comments: This is a 72-year-old female who presents emergency department with past medical history significant for urinary tract infections. Patient comes in today stating she believes she has another one. Patient states the pain radiates around the right into her kidney area and she had 102 fever partner taken Motrin 800 about 2 hours ago. Patient states the pain is in the suprapubic region and there is dysuria as well as urinary frequency. Patient denies any abdominal pain anywhere else per patient denies any nausea vomiting diarrhea. Patient denies any cough or shortness of breath. Patient denies any chest pain or palpitations. Patient denies headache patient denies numbness weakness. - Related Data Home Medications Medication Instructions Recorded Confirmed Atenolol [Tenormin] 50 mg PO DAILY 01/21/14 04/03/17 Benazepril [Lotensin] 10 mg PO HS 01/21/14 04/03/17 Difluprednate [Durezol] 1 drop RIGHT EYE MOFR 01/21/14 04/03/17 Esomeprazole Magnesium [NexIUM] 40 mg PO DAILY 01/21/14 04/03/17 Famotidine [Pepcid] 20 mg PO HS 01/21/14 04/03/17 Gabapentin [Neurontin] 300 mg PO BID 01/21/14 04/03/17 Levothyroxine Sodium [Synthroid] 100 mcg PO QAM 01/21/14 04/03/17 Ezetimibe/Simvastatin [Vytorin 1 tab PO HS 05/10/15 04/03/17 10-20 mg Tablet] Aspirin EC [Ecotrin] 325 mg PO HS 12/30/16 04/03/17 Calcium Carbonate/Vitamin D3 2 tab PO DAILY 12/30/16 04/03/17 [Calcium 600-Vit D3 800 Tab] Furosemide [Lasix] 20 mg PO QAM 12/30/16 04/03/17 Multivitamins, Thera [Multivitamin 1 tab PO DAILY 12/30/16 04/03/17 (formulary)] Previous Rx's Medication Instructions Recorded Acetaminophen Tab [Tylenol] 650 mg PO Q4HR PRN tab 01/02/17 Allergies Allergy/AdvReac Type Severity Reaction Status Date / Time Penicillins Allergy Unknown Swelling Verified 04/03/17 15:37 Review of Systems ROS Statement: Those systems with pertinent positive or pertinent negative responses have been documented in the HPI. ROS Other: All systems not noted in ROS Statement are negative. Past Medical History Past Medical History: GERD/Reflux, Hyperlipidemia, Hypertension, Neurologic Disorder, Osteoarthritis (OA), Thyroid Disorder Additional Past Medical History / Comment(s): Valvular heart disease status post aortic valve replacement, prolapsed mitral valve, seasonal ALLERGIES. History of Any Multi-Drug Resistant Organisms: None Reported Past Surgical History: Orthopedic Surgery Additional Past Surgical History / Comment(s): BLADDER SUSPENSION, AORTIC HEART VALVE REPLACEMENT in 2004, bilateral BUNIONECTOMYS, Past Anesthesia/Blood Transfusion Reactions: No Reported Reaction, Motion Sickness Past Psychological History: No Psychological Hx Reported Smoking Status: Never smoker Past Alcohol Use History: None Reported Past Drug Use History: None Reported - Past Family History Brother(s) Family Medical History: Cancer Additional Family Medical History / Comment(s): LEUKEMIA Father Family Medical History: Coronary Artery Disease (CAD) Mother Family Medical History: Coronary Artery Disease (CAD) Son(s) Family Medical History: Unable to Obtain General Exam - General Exam Comments Initial Comments: GENERAL: Patient is well-developed and well-nourished. Patient is nontoxic and well- hydrated and is in mild distress. ENT: Neck is soft and supple. No significant lymphadenopathy is noted. Oropharynx is clear. Moist mucous membranes. Neck has full range of motion without eliciting any pain. EYES: The sclera were anicteric and conjunctiva were pink and moist. Extraocular movements were intact and pupils were equal round and reactive to light. Eyelids were unremarkable. PULMONARY: Unlabored respirations. Good breath sounds bilaterally. No audible rales rhonchi or wheezing was noted. CARDIOVASCULAR: There is a regular rate and rhythm without any murmurs gallops or rubs. ABDOMEN: Mild suprapubic abdominal pain. No palpable organomegaly was noted. There is no palpable pulsatile mass. SKIN: Skin is clear with no lesions or rashes and otherwise unremarkable. NEUROLOGIC: Patient is alert and oriented x3. Cranial nerves II through XII are grossly intact. Motor and sensory are also intact. Normal speech, volume and content. Symmetrical smile. MUSCULOSKELETAL: Normal extremities with adequate strength and full range of motion. There is no CVA tenderness LYMPHATICS: No significant lymphadenopathy is noted PSYCHIATRIC: Normal psychiatric evaluation. Limitations: no limitations Course Vital Signs 04/03/17 04/03/17 04/03/17 14:38 15:25 16:31 Temperature 99.5 F 98.3 F Pulse Rate 80 70 Respiratory 20 16 Rate Blood Pressure 103/56 99/58 103/59 O2 Sat by Pulse 95 96 Oximetry Medical Decision Making - Medical Decision Making Patient had a clean urine but then she indicated to me that she had already started antibiotics yesterday and took 2 pills yesterday and was taking pills today. Patient states her urologist and instructed to do that. So I gave the patient a dose of Rocephin here 1 g and will be sending the patient home to continue the Macrobid. - Lab Data Result diagrams: 04/03/17 15:30 04/03/17 15:30 Lab Results 04/03/17 04/03/17 04/03/17 Range/Units 14:44 15:30 15:30 WBC 15.8 H (3.8-10.6) k/uL RBC 4.02 (3.80-5.40) m/uL Hgb 11.8 (11.4-16.0) gm/dL Hct 35.3 (34.0-46.0) % MCV 87.8 (80.0-100.0) fL MCH 29.3 (25.0-35.0) pg MCHC 33.4 (31.0-37.0) g/dL RDW 14.6 (11.5-15.5) % Plt Count 221 (150-450) k/uL Neutrophils % 95 % Lymphocytes % 2 % Monocytes % 2 % Eosinophils % 0 % Basophils % 0 % Neutrophils # 15.0 H (1.3-7.7) k/uL Lymphocytes # 0.4 L (1.0-4.8) k/uL Monocytes # 0.4 (0-1.0) k/uL Eosinophils # 0.0 (0-0.7) k/uL Basophils # 0.0 (0-0.2) k/uL Sodium 132 L (137-145) mmol/L Potassium 4.3 (3.5-5.1) mmol/L Chloride 100 (98-107) mmol/L Carbon Dioxide 24 (22-30) mmol/L Anion Gap 8 mmol/L BUN 13 (7-17) mg/dL Creatinine 0.80 (0.52-1.04) mg/dL Est GFR (MDRD) Af Amer >60 (>60 ml/min/1.73 sqM) Est GFR (MDRD) Non-Af >60 (>60 ml/min/1.73 sqM) Glucose 107 H (74-99) mg/dL Plasma Lactic Acid Govind (0.7-2.0) mmol/L Calcium 9.8 (8.4-10.2) mg/dL Total Bilirubin 0.5 (0.2-1.3) mg/dL AST 28 (14-36) U/L ALT 29 (9-52) U/L Alkaline Phosphatase 64 (38-126) U/L Total Protein 6.4 (6.3-8.2) g/dL Albumin 3.5 (3.5-5.0) g/dL Urine Color Yellow Urine Appearance Clear (Clear) Urine pH 8.0 (5.0-8.0) Ur Specific [place] 1.012 (1.001-1.035) Urine Protein Negative (Negative) Urine Glucose (UA) Negative (Negative) Urine Ketones Negative (Negative) Urine Blood Negative (Negative) Urine Nitrite Negative (Negative) Urine Bilirubin Negative (Negative) Urine Urobilinogen <2.0 (<2.0) mg/dL Ur Leukocyte Esterase Negative (Negative) 04/03/17 Range/Units 15:30 WBC (3.8-10.6) k/uL RBC (3.80-5.40) m/uL Hgb (11.4-16.0) gm/dL Hct (34.0-46.0) % MCV (80.0-100.0) fL MCH (25.0-35.0) pg MCHC (31.0-37.0) g/dL RDW (11.5-15.5) % Plt Count (150-450) k/uL Neutrophils % % Lymphocytes % % Monocytes % % Eosinophils % % Basophils % % Neutrophils # (1.3-7.7) k/uL Lymphocytes # (1.0-4.8) k/uL Monocytes # (0-1.0) k/uL Eosinophils # (0-0.7) k/uL Basophils # (0-0.2) k/uL Sodium (137-145) mmol/L Potassium (3.5-5.1) mmol/L Chloride (98-107) mmol/L Carbon Dioxide (22-30) mmol/L Anion Gap mmol/L BUN (7-17) mg/dL Creatinine (0.52-1.04) mg/dL Est GFR (MDRD) Af Amer (>60 ml/min/1.73 sqM) Est GFR (MDRD) Non-Af (>60 ml/min/1.73 sqM) Glucose (74-99) mg/dL Plasma Lactic Acid Govind 1.7 (0.7-2.0) mmol/L Calcium (8.4-10.2) mg/dL Total Bilirubin (0.2-1.3) mg/dL AST (14-36) U/L ALT (9-52) U/L Alkaline Phosphatase (38-126) U/L Total Protein (6.3-8.2) g/dL Albumin (3.5-5.0) g/dL Urine Color Urine Appearance (Clear) Urine pH (5.0-8.0) Ur Specific [place] (1.001-1.035) Urine Protein (Negative) Urine Glucose (UA) (Negative) Urine Ketones (Negative) Urine Blood (Negative) Urine Nitrite (Negative) Urine Bilirubin (Negative) Urine Urobilinogen (<2.0) mg/dL Ur Leukocyte Esterase (Negative) Disposition Clinical Impression: Urinary tract infection Disposition: HOME SELF-CARE Condition: Good Instructions: Urinary Tract Infection in Women (ED) Referrals: Alban Nelson MD [Primary Care Provider] - 1-2 days Time of Disposition: 17:33
[2017-04-03] MEDS ORDERED: ACETAMINOPHEN TAB 500 MG TAB PO STA (16:03)
[2017-04-03 16:05] LABS: Basophils % (A) 0 %; CH 30.5; CHCM 34.8; Eosinophils % (A) 0 %; HCT 35.3 % (34.0-46.0); HDW 2.44; HGB 11.8 gm/dL (11.4-16.0); Luc # (Auto) 0.07; Luc % (Auto) 0; Lymphocytes # (A) 0.4 k/uL (1.0-4.8); Lymphocytes % (A) 2 %; MCH 29.3 pg (25.0-35.0); MCHC 33.4 g/dL (31.0-37.0); MCV 87.8 fL (80.0-100.0); Mean Platelet Volume 7.5; Monocytes # (A) 0.4 k/uL (0-1.0); Monocytes % (A) 2 %; Neutrophils % (A) 95 %; RBC 4.02 m/uL (3.80-5.40); RDW 14.6 % (11.5-15.5); WBC 15.8 k/uL (3.8-10.6); WBC (Perox) 16.43
[2017-04-03 16:17] LABS: ALT 29 U/L (9-52); AST 28 U/L (14-36); Alkaline Phosphatase 64 U/L (38-126); Anion Gap 8 mmol/L; Blood Urea Nitrogen 13 mg/dL (7-17); Calcium 9.8 mg/dL (8.4-10.2); Carbon Dioxide 24 mmol/L (22-30); Chloride 100 mmol/L (98-107); Glucose 107 mg/dL (74-99); Non-African American GFR(MDRD) >60 (>60 ml/min/1.73 sqM); Potassium 4.3 mmol/L (3.5-5.1); Sodium 132 mmol/L (137-145); Total Bilirubin 0.5 mg/dL (0.2-1.3); Total Protein 6.4 g/dL (6.3-8.2)
[2017-04-03 16:32] VITALS: TEMP 98.3
--- NOTE | 2017-04-03 18:26 | XR ---
EXAMINATION TYPE: XR chest 2V DATE OF EXAM: 04/03/2017 COMPARISON: 12/30/2016 HISTORY: Fever with dyspnea TECHNIQUE: Frontal and lateral views of the chest are obtained. FINDINGS: Sternal sutures and valvular prosthesis noted, along with mild elevation of the left hemid iaphragm seen on the prior study. There is no focal air space opacity, pleural effusion, or pneumotho rax seen. The cardiac silhouette size is within normal limits. The osseous structures are intact. IMPRESSION: NO ACUTE CARDIOPULMONARY PROCESS; STABLE RADIOGRAPHIC APPEARANCE.
[2017-04-03 19:01] VITALS: BP 146/56; PULSE 77; RESP 20
== END 2017-04-03 18:55 | disposition home or self-care (01) ==
LOC: EC 14:07
DX: N39.0 Urinary tract infection, site not specified (principal); E78.5 Hyperlipidemia, unspecified; I10 Essential (primary) hypertension; K21.9 Gastro-esophageal reflux disease without esophagitis; M19.90 Unspecified osteoarthritis, unspecified site; E07.9 Disorder of thyroid, unspecified; Z79.82 Long term (current) use of aspirin; Z79.899 Other long term (current) drug therapy; Z88.0 Allergy status to penicillin
CPT/HCPCS: 36415; 80053; 83605; 85025; 81003; 87040; 71020; 99283; 96365; 96361; J0696

== ENCOUNTER → 2017-04-09 | Outpatient (CLI) | payer MEDICARE, BC ==
--- NOTE | 2017-04-09 16:11 | BD ---
EXAMINATION TYPE: MG DEXA axial skeleton. DATE OF EXAM: 04/09/2017 CLINICAL HISTORY: Height: 64 inches Weight: 145 pounds FRAX RISK QUESTIONS: Alcohol (3 or more units per day): no Family History (Parent hip fracture): no Glucocorticoids (More than 3mos): no (Ex: prednisone, prednisolone, methylprednisolone, dexamethasone, and hydrocortisone). History of Fracture in Adulthood: yes, hand Secondary Osteoporosis: 1. Type 1 Diabetes: no 2. Hyperthyroidism: no 3. Menopause before 45: no 4. Malnutrition: no 5. Chronic liver disease: no Rheumatoid Arthritis: unsure Current Tobacco Use: no RISK FACTORS HISTORY OF: Family History of Osteoporosis: yes, mother Active: yes Diet low in dairy products/other sources of calcium: no Postmenopausal woman: yes Take estrogen and/or progesterone medications: How long: over 15 years Lost more than 2 inches in height since high school: under 2 inches; states that at one time height w as about 66 inches Frequent falls: no Poor Health: no Hyperparathyroidism: no Adrenal Insufficiency: no MEDICATIONS: Prednisone or other steroids: no Thyroid Medications: yes Which medication: Synthroid How Long: over 20 years Osteoporosis Medications: yes Which medication: Prolia How Lon years EXAM MEASUREMENTS: Bone mineral densitometry was performed using the [employer] System. Bone mineral density as measured about the Lumbar spine is: ----- L1-L4(G/cm2): 1.029 T Score Values are as follows: ----- L2: -1.6 ----- L3: -0.5 ----- L4: -0.2 ----- L1-L4: -1.3 Bone mineral density about the R hip (g/cm2): 0.793 Bone mineral density about the L hip (g/cm2): 0.783 T Score values are as follows: -----R Neck: -1.8 -----L Neck: -1.8 -----R Total: -1.9 -----L Total: -2.0 IMPRESSION: Osteopenia (T Score between -2.5 and -1 as noted by T score values There is slightly increased risk of fracture and the patient may be considered for treatment. Re-Screen 2-5 years. Percentage change from the prior examination should be viewed with some suspicion and therefore not r eported currently, the 2015 lumbar spine levels may be different than previous exams. NOTE: T-SCORE=SD OF THE YOUNG ADULT MEAN.
== END | disposition home or self-care (01) ==
LOC: RADBDWWP 12:44
PROVIDERS: ATTEND Internal Medicine Geriatric Medicine
DX: M85.80 Other specified disorders of bone density and structure, unspecified site (principal)
CPT/HCPCS: 77080

== ENCOUNTER → 2017-05-21 | Outpatient (CLI) | payer MEDICARE, BC ==
[2017-05-21 11:16] VITALS: BP 129/78; PULSE 56; RESP 18; TEMP 98.4
== END ==
LOC: PROCWHC3 10:48
PROVIDERS: ATTEND Internal Medicine Geriatric Medicine
DX: M81.0 Age-related osteoporosis without current pathological fracture (principal)
CPT/HCPCS: 96372; J0897

== ENCOUNTER → 2017-05-27 | Outpatient (CLI) | payer MEDICARE, BC ==
--- NOTE | 2017-05-28 11:56 | MM ---
Reason for exam: screening (asymptomatic). Last mammogram was performed 1 year and 1 month ago. History: Patient is postmenopausal. Benign excisional biopsy of the left breast, 1993. Benign excisional biopsy of the right breast, 1993. Took estrogen for 17 years beginning at age 48. Physical Findings: A clinical breast exam by your physician is recommended on an annual basis and results should be correlated with mammographic findings. MG 3D Screening Mammo W/Cad Bilateral CC and MLO view(s) were taken. Prior study comparison: April 23, 2016, bilateral MG 3d screening mammo w/cad. April 19, 2015, left breast MG work up mamm w CAD LT. The breast tissue is extremely dense which could obscure a lesion on mammography. Finding: There are typically benign dystrophic, round calcifications in both breasts. There is a chronic nodularity in the right breast posterior, stable from 2014. There is no discrete abnormality. ASSESSMENT: Benign, BI-RAD 2 RECOMMENDATION: Routine screening mammogram of both breasts in 1 year.
== END | disposition home or self-care (01) ==
LOC: RADMAMWWP 11:11
PROVIDERS: ATTEND Obstetrics & Gynecology
DX: Z12.31 Encounter for screening mammogram for malignant neoplasm of breast (principal)
CPT/HCPCS: 77063; G0202

== ENCOUNTER 2017-09-18 09:35 | Day surgery (SDC) | payer MEDICARE, BC ==
[2017-09-16 14:53] VITALS: BMI 23.6
[2017-09-18 10:11] VITALS: RESP 18; TEMP 96.3
[2017-09-18] MEDS: LACTATED RINGERS 1,000 ML IV SCH ×2 (10:22→10:26)
[2017-09-18] MEDS ORDERED: LIDOCAINE 1% 20 ML VIAL (10MG/ML) FOR IV START INTRADERMA ONE (10:23)
[2017-09-18] MEDS ORDERED: LIDOCAINE 1% INJ 10MG/ML (20 ML MDV) ONE (10:28)
[2017-09-18] MEDS ORDERED: PROPOFOL 10 MG/ML 20 ML VIAL IV ONE (10:28)
--- NOTE | 2017-09-18 10:48 | P.PCN ---
Date of Procedure: 09/18/17 Procedure(s) Performed: BRIEF HISTORY: Patient is a 72-year-old pleasant white female, scheduled for an elective colonoscopy as a part of evaluation of chronic constipation of several years duration. Last colonoscopy was 10 years ago and according to the patient was incomplete. PROCEDURE PERFORMED: Colonoscopy. PREOPERATIVE DIAGNOSIS: Change in bowel habits. IV sedation per Anesthesia. PROCEDURE: After informed consent was obtained, the patient, was brought into the endoscopy unit. IV sedation was administered by Anesthesia under continuous monitoring. Digital rectal examination was normal. Initially the Olympus CF- 160 flexible video colonoscope was then inserted in the rectum, gradually advanced into the cecum without any difficulty. Careful examination was performed as the scope was gradually being withdrawn. Ileocecal valve and the appendiceal orifice were visualized and appeared normal. Prep was good. Mucosa of the cecum, ascending colon, transverse colon, descending colon, sigmoid colon , and rectum appeared normal. Retroflexion was performed in the rectum and small internal hemorrhoids were seen. The patient tolerated the procedure well. IMPRESSION: Normal-appearing colon from rectum to cecum with no evidence of colorectal neoplasia. Small internal hemorrhoids. RECOMMENDATIONS: Findings of this examination were discussed with the patient as well as a family. She was advised to be on a high-fiber diet, continue with MiraLAX and have a repeat screening colonoscopy in 10 years.
[2017-09-18 11:16] VITALS: BP 128/75; PULSE 58
== END 2017-09-18 11:47 | disposition home or self-care (01) ==
LOC: ORWHC2ENDO 09:35
PROVIDERS: ATTEND Internal Medicine Gastroenterology
DX: K64.8 Other hemorrhoids (principal); K59.09 Other constipation; E78.5 Hyperlipidemia, unspecified; E07.9 Disorder of thyroid, unspecified; K21.9 Gastro-esophageal reflux disease without esophagitis; Z88.0 Allergy status to penicillin; Z79.899 Other long term (current) drug therapy
CPT/HCPCS: 45378; J2001; J2704

== ENCOUNTER → 2017-12-20 | Outpatient (CLI) | payer MEDICARE, BC ==
[2017-12-20 13:22] VITALS: BP 139/70; PULSE 60; RESP 16; TEMP 97.5
== END | disposition home or self-care (01) ==
LOC: PROCWHC3 13:10
PROVIDERS: ATTEND Internal Medicine Geriatric Medicine
DX: M81.0 Age-related osteoporosis without current pathological fracture (principal)
CPT/HCPCS: 96372; J0897

== ENCOUNTER → 2018-06-23 | Outpatient (CLI) | payer MEDICARE, BC ==
[~2018-06-23] MED LIST changes: +DENOSUMAB 60 MG/ML 1 ML SYRINGE SQ NR; -DENOSUMAB 60 MG/ML 1 ML SYRINGE SQ ONE
[2018-06-23 12:48] VITALS: BP 131/76; PULSE 79; RESP 16; TEMP 97.6
== END ==
LOC: PROCWHC3 12:24
PROVIDERS: ATTEND Internal Medicine Geriatric Medicine
DX: M81.0 Age-related osteoporosis without current pathological fracture (principal)
CPT/HCPCS: 96372; J0897

== ENCOUNTER → 2018-08-21 | Outpatient (CLI) | payer MEDICARE, BC ==
[2018-08-21 19:10] LABS: Albumin 4.2 g/dL (3.80-4.90); Albumin/Globulin Ratio 1.4 (1.60-3.17); Anion Gap 5.9 mmol/L (4.00-12.00); Calcium 9.4 mg/dL (8.7-10.3); Carbon Dioxide 28.1 mmol/L (21.6-31.8); Potassium 4.4 mmol/L (3.5-5.5); Total Bilirubin 0.4 mg/dL (0.3-1.2); Total Protein 7.2 g/dL (6.2-8.2)
== END | disposition home or self-care (01) ==
LOC: LABWHC1 11:44
PROVIDERS: ATTEND Nurse Practitioner Adult Health
DX: I10 Essential (primary) hypertension (principal)
CPT/HCPCS: 36415; 80053

== ENCOUNTER → 2018-12-04 | Outpatient (CLI) | payer MEDICARE, BC ==
[2018-12-04 19:06] LABS: Albumin 3.9 g/dL (3.80-4.90); Albumin/Globulin Ratio 1.7 (1.60-3.17); Anion Gap 5.6 mmol/L (4.00-12.00); Calcium 9.3 mg/dL (8.7-10.3); Carbon Dioxide 28.4 mmol/L (21.6-31.8); Globulin 2.3 g/dL (1.6-3.3); Potassium 4.6 mmol/L (3.5-5.5); Total Bilirubin 0.4 mg/dL (0.2-1.2); Total Protein 6.2 g/dL (6.2-8.2)
== END | disposition home or self-care (01) ==
LOC: LABWHC1 14:43
PROVIDERS: ATTEND Internal Medicine Interventional Cardiology
DX: I10 Essential (primary) hypertension (principal); E78.5 Hyperlipidemia, unspecified; R07.9 Chest pain, unspecified; R06.02 Shortness of breath; Z95.4 Presence of other heart-valve replacement; Z82.49 Family history of ischemic heart disease and other diseases of the circulatory system
CPT/HCPCS: 36415; 80053; 83880

== ENCOUNTER 2018-12-13 15:50 | Observation (INO) | payer MEDICARE, BC ==
[2018-12-13] MEDS ORDERED: ASPIRIN 81 MG PO STA (16:26)
[2018-12-13] MEDS ORDERED: SODIUM CHLORIDE 0.9% 500 ML 500 ML IV STA (16:26)
[2018-12-13] MEDS ORDERED: NITROGLYCERIN SL TABS 0.4 MG TAB SUBLINGUAL STA (16:26)
[2018-12-13 16:43] LABS: Basophils % (A) 1 %; Eosinophils # (A) 0.2 k/uL (0-0.7); Eosinophils % (A) 3 %; HCT 36.7 % (34.0-46.0); HGB 12.1 gm/dL (11.4-16.0); Lymphocytes # (A) 1.3 k/uL (1.0-4.8); Lymphocytes % (A) 25 %; MCH 30.9 pg (25.0-35.0); MCV 93.8 fL (80.0-100.0); Mean Platelet Volume 6.5; Monocytes # (A) 0.3 k/uL (0-1.0); Monocytes % (A) 5 %; Neutrophils # (A) 3.4 k/uL (1.3-7.7); Neutrophils % (A) 64 %; Platelet Count 239 k/uL (150-450); RBC 3.92 m/uL (3.80-5.40); RDW 13.1 % (11.5-15.5); WBC 5.3 k/uL (3.8-10.6)
[2018-12-13] MEDS ORDERED: hydrALAZINE HCL 20 MG/ML 1 ML VIAL IVP STA (16:51)
[2018-12-13 16:53] LABS: INR 0.9 (<1.2); Partial Thromboplastin Time 25.9 sec (22.0-30.0); Prothrombin Time 10.1 sec (9.0-12.0)
[2018-12-13 17:01] LABS: ALT 26 U/L (9-52); AST 32 U/L (14-36); Albumin 4.2 g/dL (3.5-5.0); Alkaline Phosphatase 60 U/L (38-126); Anion Gap 9 mmol/L; Blood Urea Nitrogen 13 mg/dL (7-17); Calcium 9.6 mg/dL (8.4-10.2); Carbon Dioxide 27 mmol/L (22-30); Chloride 94 mmol/L (98-107); Glucose 89 mg/dL (74-99); Potassium 4.5 mmol/L (3.5-5.1); Sodium 130 mmol/L (137-145); Total Bilirubin 0.5 mg/dL (0.2-1.3); Total Protein 7.3 g/dL (6.3-8.2)
--- NOTE | 2018-12-13 18:19 | ED ---
General Adult HPI - General Chief complaint: Back Pain/Injury Stated complaint: back pain/chest discomfort Time Seen by Provider: 12/13/18 16:18 Source: patient, RN notes reviewed, old records reviewed Mode of arrival: ambulatory Limitations: no limitations - History of Present Illness Initial comments: 73-year-old female patient past medical history of aortic valve replacement in 2004, asthma, GERD, hypertension, hyperlipidemia since ED with 2 chief com plaints. Patient first complaint is some mild thoracic back pain which began this morning, atraumatic. Patient secondary complaint is some right parasternal chest discomfort. Patient states that this feels like a mild pressure. Patient denies any falls or recent trauma. Patient denies any other complaints. Systemic: Pt denies fatigue, myalgia, fever/chills, rash. Pt denies weakness, night sweats, weight loss. Neuro: Pt denies headache, visual disturbances, syncope or pre-syncope. HEENT: Pt denies ocular discharge or irritation, otalgia, rhinorrhea, pharyngitis or notable lymphadenopathy. Cardiopulmonary: Pt denies heart palpitations, dyspnea on exertion. Abdominal/GI: Pt denies abdominal pain, n/v/d. : Pt denies dysuria, burning w/ urination, frequency/urgency. Denies new onset urinary or bowel incontinence. MSK: Pt denies myalgia, loss of strength or function in extremities. Neuro: Pt denies new onset weakness, paresthesias. - Related Data Home Medications Medication Instructions Recorded Confirmed Atenolol [Tenormin] 50 mg PO DAILY 01/21/14 06/23/18 Benazepril [Lotensin] 10 mg PO HS 01/21/14 06/23/18 Difluprednate [Durezol] 1 drop RIGHT EYE MOFR 01/21/14 06/23/18 Esomeprazole Magnesium [NexIUM] 40 mg PO DAILY 01/21/14 06/23/18 Famotidine [Pepcid] 20 mg PO HS 01/21/14 06/23/18 Gabapentin [Neurontin] 300 mg PO BID 01/21/14 06/23/18 Levothyroxine Sodium [Synthroid] 100 mcg PO QAM 01/21/14 06/23/18 Ezetimibe/Simvastatin [Vytorin 1 tab PO HS 10/27/15 12/10/18 10-20 mg Tablet] Aspirin EC [Ecotrin] 325 mg PO HS 12/30/16 06/23/18 Calcium Carbonate/Vitamin D3 2 tab PO DAILY 12/30/16 06/23/18 [Calcium 600-Vit D3 800 Tab] Furosemide [Lasix] 20 mg PO QAM 12/30/16 06/23/18 Multivitamins, Thera [Multivitamin 1 tab PO DAILY 12/30/16 06/23/18 (formulary)] Prolia 1 applic SQ Q180D 09/16/17 06/23/18 Previous Rx's Medication Instructions Recorded Acetaminophen Tab [Tylenol] 650 mg PO Q4HR PRN tab 01/02/17 Allergies Allergy/AdvReac Type Severity Reaction Status Date / Time Penicillins Allergy Unknown Swelling Verified 12/13/18 16:02 Review of Systems ROS Statement: Those systems with pertinent positive or pertinent negative responses have been documented in the HPI. ROS Other: All systems not noted in ROS Statement are negative. Past Medical History Past Medical History: Asthma, GERD/Reflux, Hyperlipidemia, Hypertension, Neurologic Disorder, Osteoarthritis (OA), Thyroid Disorder Additional Past Medical History / Comment(s): Valvular heart disease status post aortic valve replacement, prolapsed mitral valve, seasonal ALLERGIES. History of Any Multi-Drug Resistant Organisms: None Reported Past Surgical History: Bladder Surgery, Cardiac Valve Replacement, Ear Surgery, Hysterectomy, Joint Replacement Additional Past Surgical History / Comment(s): BLADDER SUSPENSION, AORTIC HEART VALVE REPLACEMENT in 2004, bilateral BUNIONECTOMYS, Past Anesthesia/Blood Transfusion Reactions: No Reported Reaction, Motion Sickness Past Psychological History: No Psychological Hx Reported Smoking Status: Never smoker Past Alcohol Use History: None Reported Past Drug Use History: None Reported - Past Family History Brother(s) Family Medical History: Cancer Additional Family Medical History / Comment(s): LEUKEMIA Father Family Medical History: Coronary Artery Disease (CAD) Mother Family Medical History: Coronary Artery Disease (CAD) Son(s) Family Medical History: No Reported History General Exam - General Exam Comments Initial Comments: Constitutional: NAD, AOX3, Pt has pleasant affect. HEENT: NC/AT, trachea midline, neck supple, no lymphadenopathy. Posterior pharynx non erythematous, without exudates. External ears appear normal, without discharge. Mucous membranes moist. Eyes PERRLA, EOM intact. There is no scleral icterus. No pallor noted. Cardiopulmonary: RRR, no murmurs, rubs or gallops, no JVD noted. Lungs CTAB in anterior and posterior alonso. No peripheral edema. Abdominal exam: Abdomen soft and non-distended. Abdomen non-tender to palpation in all 4 quadrants. Bowel sounds active in LLQ. No hepatosplenomegaly. No ecchymosis Neuro: CN II-XII grossly intact. No nuchal rigidity. MSK: Cervical, thoracic, lumbar spine nontender to palpation. No posterior calf tenderness bilaterally, homans sign negative bilaterally. Distal pulses intact and equal. Posterior tibialis and radial pulse +2 bilaterally. Sensation intact in upper and lower extremities. Full active ROM in upper and lower extremities, 5/5 stregnth. Limitations: no limitations Course Vital Signs 12/13/18 12/13/18 12/13/18 15:59 16:58 19:17 Temperature 97.8 F Pulse Rate 60 63 57 L Respiratory 18 16 16 Rate Blood Pressure 185/88 162/85 139/81 O2 Sat by Pulse 98 98 98 Oximetry Medical Decision Making - Medical Decision Making 73-year-old female patient past medical history of aortic valve replacement in 2004, asthma, GERD, hypertension, hyperlipidemia since ED with 2 chief complaints. Patient first complaint is some mild thoracic back pain which began this morning, atraumatic. Patient secondary complaint is some right parasternal chest discomfort. Patient states that this feels like a mild pressure. Patient denies any falls or recent trauma. Patient denies any other complaints. Patient vital stable, afebrile. Physical exam displayed: Cervical, thoracic, lumbar spine nontender to palpation. Cardiopulmonary exam negative for acute ischemia. Labs investigations revealed nonpresent CBC, CMP revealed mild hyponatremia at 1:30 which is around baseline for patient. Coagulation studies the normal limits. Troponin negative. BNP 523. CXR displayed chronic changes without acute pulmonary process. Thoracic aorta CT displayed no evidence of aneursym or dissecion. Nonobstructive bowel gas pattern. Patient is currently asymptomatic. Denies any current chest pain or SOB. Patient will be admitted for serial troponins, cardiac consult. Case discussed the patient seen by Dr. Valladares. - Lab Data Result diagrams: 12/13/18 16:30 12/13/18 16:30 Lab Results 12/13/18 12/13/18 12/13/18 Range/Units 16:30 16:30 16:30 WBC 5.3 (3.8-10.6) k/uL RBC 3.92 (3.80-5.40) m/uL Hgb 12.1 (11.4-16.0) gm/dL Hct 36.7 (34.0-46.0) % MCV 93.8 (80.0-100.0) fL MCH 30.9 (25.0-35.0) pg MCHC 33.0 (31.0-37.0) g/dL RDW 13.1 (11.5-15.5) % Plt Count 239 (150-450) k/uL Neutrophils % 64 % Lymphocytes % 25 % Monocytes % 5 % Eosinophils % 3 % Basophils % 1 % Neutrophils # 3.4 (1.3-7.7) k/uL Lymphocytes # 1.3 (1.0-4.8) k/uL Monocytes # 0.3 (0-1.0) k/uL Eosinophils # 0.2 (0-0.7) k/uL Basophils # 0.0 (0-0.2) k/uL PT (9.0-12.0) sec INR (<1.2) APTT (22.0-30.0) sec Sodium 130 L (137-145) mmol/L Potassium 4.5 (3.5-5.1) mmol/L Chloride 94 L (98-107) mmol/L Carbon Dioxide 27 (22-30) mmol/L Anion Gap 9 mmol/L BUN 13 (7-17) mg/dL Creatinine 0.67 (0.52-1.04) mg/dL Est GFR (CKD-EPI)AfAm >90 (>60 ml/min/1.73 sqM) Est GFR (CKD-EPI)NonAf 88 (>60 ml/min/1.73 sqM) Glucose 89 (74-99) mg/dL Calcium 9.6 (8.4-10.2) mg/dL Magnesium 2.0 (1.6-2.3) mg/dL Total Bilirubin 0.5 (0.2-1.3) mg/dL AST 32 (14-36) U/L ALT 26 (9-52) U/L Alkaline Phosphatase 60 (38-126) U/L Troponin I (0.000-0.034) ng/mL NT-Pro-B Natriuret Pep 523 pg/mL Total Protein 7.3 (6.3-8.2) g/dL Albumin 4.2 (3.5-5.0) g/dL 12/13/18 12/13/18 Range/Units 16:30 16:30 WBC (3.8-10.6) k/uL RBC (3.80-5.40) m/uL Hgb (11.4-16.0) gm/dL Hct (34.0-46.0) % MCV (80.0-100.0) fL MCH (25.0-35.0) pg MCHC (31.0-37.0) g/dL RDW (11.5-15.5) % Plt Count (150-450) k/uL Neutrophils % % Lymphocytes % % Monocytes % % Eosinophils % % Basophils % % Neutrophils # (1.3-7.7) k/uL Lymphocytes # (1.0-4.8) k/uL Monocytes # (0-1.0) k/uL Eosinophils # (0-0.7) k/uL Basophils # (0-0.2) k/uL PT 10.1 (9.0-12.0) sec INR 0.9 (<1.2) APTT 25.9 (22.0-30.0) sec Sodium (137-145) mmol/L Potassium (3.5-5.1) mmol/L Chloride (98-107) mmol/L Carbon Dioxide (22-30) mmol/L Anion Gap mmol/L BUN (7-17) mg/dL Creatinine (0.52-1.04) mg/dL Est GFR (CKD-EPI)AfAm (>60 ml/min/1.73 sqM) Est GFR (CKD-EPI)NonAf (>60 ml/min/1.73 sqM) Glucose (74-99) mg/dL Calcium (8.4-10.2) mg/dL Magnesium (1.6-2.3) mg/dL Total Bilirubin (0.2-1.3) mg/dL AST (14-36) U/L ALT (9-52) U/L Alkaline Phosphatase (38-126) U/L Troponin I <0.012 (0.000-0.034) ng/mL NT-Pro-B Natriuret Pep pg/mL Total Protein (6.3-8.2) g/dL Albumin (3.5-5.0) g/dL Disposition Clinical Impression: Chest pain Disposition: ADMITTED IP TO THIS HOSP Condition: Serious Is patient prescribed a controlled substance at d/c from ED?: No Referrals: Alban Nelson MD [Primary Care Provider] - 1-2 days
--- NOTE | 2018-12-13 18:25 | CT ---
EXAMINATION TYPE: CT angio thor/abd pel aorta DATE OF EXAM: 12/13/2018 COMPARISON: None HISTORY: posterior chest and back pain. hx of heart disease, cardiac stents, multiple open heart sx. CT DLP: 1052.1 mGycm. Automated Exposure Control for Dose Reduction was Utilized. CONTRAST: CTA scan of the thorax, abdomen and pelvis is performed without and with IV Contrast, patient injecte d with 100 mL of Isovue 370. Dissection protocol. Three-D reconstructed images are created and the wo rkstation and reviewed. FINDINGS: VASCULAR: There is satisfactory opacification of central pulmonary arteries. Main pulmonary artery me asures 2.6 cm at bifurcation image 35. Adjacent aorta measures up to 3.4 cm in diameter. There is nor mal 3 vessel origin from the aortic arch. There is moderate coronary artery calcification. There is a patent celiac artery, SMA, left single renal artery, 2 right-sided renal arteries, and BREANNA. There is mild plaque in the abdominal aorta. Mild plaque extends into the common as well as internal/external iliac arteries bilaterally. There is mild plaque in the common femoral arteries and the bilateral gr oin. There is satisfactory bifurcation. No aneurysm is seen. No significant stenosis is evident. No l inear hypodensity to suggest dissection is evident. LUNGS: The lungs are grossly clear, there is no concerning parenchymal mass or nodule identified. T here is no pleural effusion or pneumothorax seen. The tracheobronchial tree is patent. Cardiomegaly is present. There is moderate right greater than left biatrial dilatation. MEDIASTINUM: There are no greater than 1 cm hilar or mediastinal lymph nodes. No pericardial effusi on is seen. OTHER: No additional significant abnormality is seen. LIVER/GB: Gallbladder is contracted. PANCREAS: No significant abnormality is seen. SPLEEN: No significant abnormality is seen. ADRENALS: No significant abnormality is seen. KIDNEYS: No significant abnormality is seen. BOWEL: Small hiatal hernia is seen. Moderate amount of diffuse fecal material throughout colon is pre sent with small bowel feces sign. No suspicious small bowel dilatation. Redundancy of colon is noted. Stomach is poorly distended and suboptimally evaluated. Few small bowel loops in the right lower tena drant are prominent but not greater than 3 cm dilated. There are surgical sutures sigmoid rectal colo n maximum is 173. No suspicious proximal dilatation to this is seen. GENITAL ORGANS: Uterus is surgically absent or markedly atrophic. LYMPH NODES: No greater than 1cm abdominal or pelvic lymph nodes are appreciated. OSSEOUS STRUCTURES: There is extra convex scoliosis centered at L2 level. There is moderate to severe disc space narrowing with spurring and sclerosis left L2-L3 level. There is slight grade 1 anterolis thesis L4 on L5. This facet arthropathy lower lumbar spine. OTHER: No significant additional abnormality is seen. IMPRESSION: 1. No CTA evidence for aortic aneurysm or dissection. 2. Overall nonobstructive bowel gas pattern. Moderate diffuse colonic fecal stasis is felt present.
--- NOTE | 2018-12-13 18:36 | XR ---
EXAMINATION TYPE: XR chest 2V DATE OF EXAM: 12/13/2018 COMPARISON: Chest x-ray April 03, 2017. Same-day CTA. HISTORY: Chest pain. TECHNIQUE: Frontal and lateral views of the chest are obtained. FINDINGS: Slightly elevated left hemidiaphragm is redemonstrated. Overlying sternal wires and metalli c aortic valve are again seen. There is no focal air space opacity, pleural effusion, or pneumothorax seen. The cardiac silhouette size is stable and upper limits of normal. The osseous structures ar e intact. IMPRESSION: Chronic changes without acute pulmonary process.
[2018-12-13] MEDS ORDERED: NITROGLYCERIN SL TABS 0.4 MG TAB SUBLINGUAL PRN (20:27)
--- NOTE | 2018-12-13 20:40 | ED ---
Medical Decision Making - Medical Decision Making EKG not concerning for acute ischemia. - Lab Data Result diagrams: 12/13/18 16:30 12/13/18 16:30 Lab Results 12/13/18 12/13/18 12/13/18 Range/Units 16:30 16:30 16:30 WBC 5.3 (3.8-10.6) k/uL RBC 3.92 (3.80-5.40) m/uL Hgb 12.1 (11.4-16.0) gm/dL Hct 36.7 (34.0-46.0) % MCV 93.8 (80.0-100.0) fL MCH 30.9 (25.0-35.0) pg MCHC 33.0 (31.0-37.0) g/dL RDW 13.1 (11.5-15.5) % Plt Count 239 (150-450) k/uL Neutrophils % 64 % Lymphocytes % 25 % Monocytes % 5 % Eosinophils % 3 % Basophils % 1 % Neutrophils # 3.4 (1.3-7.7) k/uL Lymphocytes # 1.3 (1.0-4.8) k/uL Monocytes # 0.3 (0-1.0) k/uL Eosinophils # 0.2 (0-0.7) k/uL Basophils # 0.0 (0-0.2) k/uL PT (9.0-12.0) sec INR (<1.2) APTT (22.0-30.0) sec Sodium 130 L (137-145) mmol/L Potassium 4.5 (3.5-5.1) mmol/L Chloride 94 L (98-107) mmol/L Carbon Dioxide 27 (22-30) mmol/L Anion Gap 9 mmol/L BUN 13 (7-17) mg/dL Creatinine 0.67 (0.52-1.04) mg/dL Est GFR (CKD-EPI)AfAm >90 (>60 ml/min/1.73 sqM) Est GFR (CKD-EPI)NonAf 88 (>60 ml/min/1.73 sqM) Glucose 89 (74-99) mg/dL Calcium 9.6 (8.4-10.2) mg/dL Magnesium 2.0 (1.6-2.3) mg/dL Total Bilirubin 0.5 (0.2-1.3) mg/dL AST 32 (14-36) U/L ALT 26 (9-52) U/L Alkaline Phosphatase 60 (38-126) U/L Troponin I (0.000-0.034) ng/mL NT-Pro-B Natriuret Pep 523 pg/mL Total Protein 7.3 (6.3-8.2) g/dL Albumin 4.2 (3.5-5.0) g/dL 12/13/18 12/13/18 Range/Units 16:30 16:30 WBC (3.8-10.6) k/uL RBC (3.80-5.40) m/uL Hgb (11.4-16.0) gm/dL Hct (34.0-46.0) % MCV (80.0-100.0) fL MCH (25.0-35.0) pg MCHC (31.0-37.0) g/dL RDW (11.5-15.5) % Plt Count (150-450) k/uL Neutrophils % % Lymphocytes % % Monocytes % % Eosinophils % % Basophils % % Neutrophils # (1.3-7.7) k/uL Lymphocytes # (1.0-4.8) k/uL Monocytes # (0-1.0) k/uL Eosinophils # (0-0.7) k/uL Basophils # (0-0.2) k/uL PT 10.1 (9.0-12.0) sec INR 0.9 (<1.2) APTT 25.9 (22.0-30.0) sec Sodium (137-145) mmol/L Potassium (3.5-5.1) mmol/L Chloride (98-107) mmol/L Carbon Dioxide (22-30) mmol/L Anion Gap mmol/L BUN (7-17) mg/dL Creatinine (0.52-1.04) mg/dL Est GFR (CKD-EPI)AfAm (>60 ml/min/1.73 sqM) Est GFR (CKD-EPI)NonAf (>60 ml/min/1.73 sqM) Glucose (74-99) mg/dL Calcium (8.4-10.2) mg/dL Magnesium (1.6-2.3) mg/dL Total Bilirubin (0.2-1.3) mg/dL AST (14-36) U/L ALT (9-52) U/L Alkaline Phosphatase (38-126) U/L Troponin I <0.012 (0.000-0.034) ng/mL NT-Pro-B Natriuret Pep pg/mL Total Protein (6.3-8.2) g/dL Albumin (3.5-5.0) g/dL - EKG Data -: EKG Interpreted by Me EKG Comments: Ventricular rate 56, painful line 6, curious 94, QT/QTc 436 S4 20. Sinus bradycardia, otherwise normal EKG. Disposition Clinical Impression: Chest pain Disposition: ADMITTED IP TO THIS HOSP Condition: Serious Is patient prescribed a controlled substance at d/c from ED?: No Referrals: Alban Nelson MD [Primary Care Provider] - 1-2 days
[2018-12-13] MEDS ORDERED: ATENOLOL 50 MG TAB PO SCH (23:45)
[2018-12-14] MEDS ORDERED: EZETIMIBE 10 MG TAB PO SCH
[2018-12-14] MEDS ORDERED: FAMOTIDINE 20 MG TAB PO SCH
[2018-12-14] MEDS ORDERED: ATORVASTATIN 10 MG TAB PO SCH
[2018-12-14] MEDS: BISACODYL 5 MG TABLET.DR PO SCH ×2 (00:03→07:50)
[2018-12-14] MEDS: GABAPENTIN 300 MG CAP PO SCH ×2 (00:03→07:49)
[2018-12-14] MEDS ORDERED: LEVOTHYROXINE 100 MCG TAB PO SCH (06:30)
[2018-12-14 06:48] LABS: Cholesterol 116 mg/dL (<200); HDL Cholesterol 48 mg/dL (40-60); LDL Cholesterol,Calculated 49 mg/dL (0-99); Triglycerides 97 mg/dL (<150)
[2018-12-14 08:01] VITALS: BP 156/79; PULSE 57; RESP 16; TEMP 98.3
[2018-12-14] MEDS ORDERED: LISINOPRIL 10 MG TAB PO SCH (09:00)
[2018-12-14] MEDS ORDERED: ASPIRIN 325 MG TAB PO SCH (09:00)
[2018-12-14] MEDS ORDERED: ASPIRIN 81 MG PO SCH (09:00)
[2018-12-14] MEDS ORDERED: PANTOPRAZOLE 40 MG TABLET PO SCH (09:00)
[2018-12-14] MEDS ORDERED: CALCIUM CARBONATE 500 MG CHEWABLE PO SCH (09:00)
[2018-12-14] MEDS ORDERED: MULTIVITAMINS, THERA 1 EACH TAB PO SCH (09:00)
[2018-12-14] MEDS ORDERED: CALCIUM CARB-VIT D 500MG-200UN 1 EACH TAB PO SCH (09:00)
[2018-12-14] MEDS ORDERED: FUROSEMIDE 20 MG TAB PO SCH (09:00)
--- NOTE | 2018-12-14 09:44 | P.CRDCN ---
History of Present Illness Consult date: 12/14/18 Requesting physician: Emanuel Ramos Consult reason: chest pain Chief complaint: Chest pain History of present illness: This is a pleasant 73-year-old female who follows regularly with Dr. Love in the office. She does have a history of an aortic valve replacement in 2004, hypertension, hyperlipidemia, GERD. According to the patient, she had just walked her trash out to the road, and upon arriving back into the house, she states that she has some discomfort between her scapula area which radiated through to her chest. She did feel some associated shortness of breath, she denied any nausea or diaphoresis. She described the discomfort as a pressure sensation. She states that the symptoms lasted until she came into the emergency room. Patient also states that she underwent stress test in the office approximately 4 months ago, she had an echo performed in July of this year, and she has an appointment with Dr. Love tomorrow in the office. Her EKG on arrival here showed a sinus bradycardia with no acute changes noted. Chest x-ray showed chronic changes without acute pulmonary process. CTA of the thoracic aorta did not reveal evidence for aortic aneurysm or dissection, overall nonobstructive bowel gas pattern. Blood pressure on arrival here 80 185/88, heart rate in the 60s, 98% on room air. Blood pressure this morning 156/70 with a heart rate in the 60s, 96% on room air. White blood cell count 5.3, hemoglobin 12.1, platelet count 239. Sodium 1:30, potassium 4.5, BUN 13 and creatinine 0.6. Magnesium 2.0. Troponins were negative 3. At the time of my examination this morning, patient denies any chest discomfort, breathing is stable, and she is quite eager to discharge home. Past Medical History Past Medical History: Asthma, GERD/Reflux, Hyperlipidemia, Hypertension, Neurologic Disorder, Osteoarthritis (OA), Thyroid Disorder Additional Past Medical History / Comment(s): Valvular heart disease status post aortic valve replacement, prolapsed mitral valve, seasonal ALLERGIES. N europathy. Remeutic fever as a child History of Any Multi-Drug Resistant Organisms: None Reported Past Surgical History: Bladder Surgery, Cardiac Valve Replacement, Ear Surgery, Hysterectomy, Joint Replacement Additional Past Surgical History / Comment(s): BLADDER SUSPENSION, AORTIC HEART VALVE REPLACEMENT in 2004, bilateral BUNIONECTOMYS, Past Anesthesia/Blood Transfusion Reactions: Motion Sickness Smoking Status: Never smoker - Past Family History Brother(s) Family Medical History: Cancer Additional Family Medical History / Comment(s): LEUKEMIA Father Family Medical History: Coronary Artery Disease (CAD) Mother Family Medical History: Coronary Artery Disease (CAD) Son(s) Family Medical History: No Reported History Medications and Allergies Home Medications Medication Instructions Recorded Confirmed Type Atenolol [Tenormin] 50 mg PO HS 01/21/14 12/13/18 History Benazepril [Lotensin] 10 mg PO DAILY 01/21/14 12/13/18 History Difluprednate [Durezol] 1 drop RIGHT EYE MOFR 01/21/14 12/13/18 History Esomeprazole Magnesium [NexIUM] 40 mg PO DAILY 01/21/14 12/13/18 History Famotidine [Pepcid] 20 mg PO HS 01/21/14 12/13/18 History Gabapentin [Neurontin] 300 mg PO BID 01/21/14 12/13/18 History Levothyroxine Sodium [Synthroid] 100 mcg PO QAM 01/21/14 12/13/18 History Ezetimibe/Simvastatin [Vytorin 1 tab PO HS 05/10/15 12/13/18 History 10-20 mg Tablet] Calcium Carbonate/Vitamin D3 2 tab PO DAILY 12/30/16 12/13/18 History [Calcium 600-Vit D3 800 Tab] Furosemide [Lasix] 20 mg PO QAM 12/30/16 12/13/18 History Multivitamins, Thera [Multivitamin 1 tab PO DAILY 12/30/16 12/13/18 History (formulary)] Prolia 1 injection SQ Q180D 09/16/17 12/13/18 History Aspirin EC [Ecotrin Low Dose] 81 mg PO DAILY 12/13/18 12/13/18 History Bisacodyl [Dulcolax] 5 mg PO BID 12/13/18 12/13/18 History Calcium Carbonate [Calcium] 600 mg PO DAILY 12/13/18 12/13/18 History Polyethylene Glycol 3350 [Miralax] 17 gm PO DAILY 12/13/18 12/13/18 History Allergies Allergy/AdvReac Type Severity Reaction Status Date / Time Penicillins Allergy Unknown Swelling Verified 12/13/18 23:22 Physical Exam Vitals: Vital Signs Temp Pulse Pulse Pulse Resp BP BP 12/14/18 08:00 98.3 F 57 L 16 12/14/18 03:32 62 15 154/74 12/14/18 03:06 18 12/13/18 23:19 97.6 F 60 18 178/72 12/13/18 22:54 59 L 16 149/68 12/13/18 21:00 61 18 175/83 12/13/18 19:17 57 L 16 139/81 12/13/18 16:58 63 16 162/85 12/13/18 15:59 97.8 F 60 18 185/88 BP Pulse Ox 12/14/18 08:00 156/79 96 12/14/18 03:32 99 12/14/18 03:06 12/13/18 23:19 98 12/13/18 22:54 97 12/13/18 21:00 95 12/13/18 19:17 98 12/13/18 16:58 98 12/13/18 15:59 98 Intake and Output 12/13/18 12/14/18 12/14/18 22:59 06:59 14:59 Other: Voiding Method Toilet # Voids 1 Weight 61.235 kg PHYSICAL EXAMINATION: GENERAL: 89-year-old female in no acute distress at the time of my examination HEENT: Head is atraumatic, normocephalic. Pupils equal, round. Sclera anicteric. Conjunctiva are clear. Mucous membranes of the mouth are moist. Neck is supple. There is no elevated jugular venous pressure. No carotid bruit is heard. HEART EXAMINATION: Heart S1 S2 1 systolic murmur is heard CHEST EXAMINATION: Lungs are clear to auscultation and precussion. No chest wall tenderness is noted on palpation or with deep breathing. ABDOMEN: Soft, nontender. Bowel sounds are heard. No organomegaly noted. EXTREMITIES: 2+ peripheral pulses with no evidence of peripheral edema and no calf tenderness noted. NEUROLOGIC patient is awake, alert and oriented 3. . Results 12/13/18 16:30 12/13/18 16:30 Cardiac Enzymes 12/13/18 12/13/18 12/13/18 Range/Units 16:30 16:30 23:41 AST 32 (14-36) U/L Troponin I <0.012 <0.012 (0.000-0.034) ng/mL 12/14/18 Range/Units 06:14 AST (14-36) U/L Troponin I <0.012 (0.000-0.034) ng/mL Coagulation 12/13/18 Range/Units 16:30 PT 10.1 (9.0-12.0) sec APTT 25.9 (22.0-30.0) sec Lipids 12/14/18 Range/Units 06:14 Triglycerides 97 (<150) mg/dL Cholesterol 116 (<200) mg/dL HDL Cholesterol 48 (40-60) mg/dL CBC 12/13/18 Range/Units 16:30 WBC 5.3 (3.8-10.6) k/uL RBC 3.92 (3.80-5.40) m/uL Hgb 12.1 (11.4-16.0) gm/dL Hct 36.7 (34.0-46.0) % Plt Count 239 (150-450) k/uL Comprehensive Metabolic Panel 12/13/18 Range/Units 16:30 Sodium 130 L (137-145) mmol/L Potassium 4.5 (3.5-5.1) mmol/L Chloride 94 L (98-107) mmol/L Carbon Dioxide 27 (22-30) mmol/L BUN 13 (7-17) mg/dL Creatinine 0.67 (0.52-1.04) mg/dL Glucose 89 (74-99) mg/dL Calcium 9.6 (8.4-10.2) mg/dL AST 32 (14-36) U/L ALT 26 (9-52) U/L Alkaline Phosphatase 60 (38-126) U/L Total Protein 7.3 (6.3-8.2) g/dL Albumin 4.2 (3.5-5.0) g/dL Current Medications Generic Name Dose Route Start Last Admin Trade Name Freq PRN Reason Stop Dose Admin Aspirin 325 mg 12/14/18 09:00 12/14/18 07:37 Aspirin PO Not Given DAILY [facility] Aspirin 81 mg 12/14/18 09:00 12/14/18 07:49 Aspirin PO 81 mg DAILY JADE Administration Atenolol 50 mg 12/13/18 23:45 12/14/18 00:03 Tenormin PO 50 mg HS JADE Administration Atorvastatin Calcium 10 mg 12/14/18 00:00 12/14/18 00:14 Lipitor PO 10 mg HS JADE Administration Bisacodyl 5 mg 12/14/18 00:00 12/14/18 07:50 Dulcolax PO 5 mg BID JADE Administration Calcium Carbonate 2 each 12/14/18 09:00 12/14/18 07:49 Oscal 500+D PO 2 each DAILY JADE Administration Calcium Carbonate/Glycine 500 mg 12/14/18 09:00 12/14/18 07:49 Tums PO 500 mg DAILY JADE Administration Ezetimibe 10 mg 12/14/18 00:00 12/14/18 00:14 Zetia PO 10 mg HS JADE Administration Famotidine 20 mg 12/14/18 00:00 12/14/18 00:03 Pepcid PO 20 mg HS JADE Administration Furosemide 20 mg 12/14/18 09:00 12/14/18 07:50 Lasix PO 20 mg QAM JADE Administration Gabapentin 300 mg 12/14/18 00:00 12/14/18 07:49 Neurontin PO 300 mg BID [facility] Administration Levothyroxine Sodium 100 mcg 12/14/18 06:30 12/14/18 05:16 Synthroid PO 100 mcg DAILY@0630 [facility] Administration Lisinopril 10 mg 12/14/18 09:00 12/14/18 07:49 Zestril PO 10 mg DAILY [facility] Administration Multivitamins 1 each 12/14/18 09:00 12/14/18 07:49 Theragran PO 1 each DAILY [facility] Administration Nitroglycerin 0.4 mg 12/13/18 20:27 Nitrostat SUBLINGUAL Q5M PRN Chest Pain Non-Formulary Medication 1 drop 12/15/18 09:00 Difluprednate [Durezol] RIGHT EYE MoFr@0900 [facility] Pantoprazole Sodium 40 mg 12/14/18 09:00 12/14/18 07:49 Protonix PO 40 mg DAILY [facility] Administration Polyethylene Glycol 17 gm 12/14/18 12:00 Miralax PO 1200 [facility] Intake and Output 12/13/18 12/14/18 12/14/18 22:59 06:59 14:59 Other: Voiding Method Toilet # Voids 1 Weight 61.235 kg 12/13/18 16:30 12/13/18 16:30 EKG Interpretations (text) EKG shows a sinus bradycardia with no acute changes. Assessment and Plan Plan: Assessment and plan #1 symptoms of scapular discomfort with radiation to the chest, associated shortness of breath. Some atypical features for acute coronary syndrome. Troponins are negative 3. EKG shows sinus bradycardia with no acute changes. #2 hypertension, accelerated hypertension on admission here, May have contributed to some of the chest pressure. This morning's blood pressure 156/78. #3 history of aortic valve replacement #4 hyperlipidemia #5 hypothyroidism Plan Patient just had an echocardiogram with Doppler study performed in July, and stress test according to the patient was performed 4 months ago which according to her was normal. Add Norvasc 2.5 mg patient's medication regime. From our perspective, patient should be able to be discharged home and follow-up with Dr. Love per her appointment tomorrow. Further recommendations to follow.
[2018-12-14] MEDS ORDERED: amLODIPine 2.5 MG TAB PO SCH (10:00)
--- NOTE | 2018-12-14 11:46 | P.HPIM ---
History of Present Illness H&P Date: 12/14/18 Chief Complaint: Back pain HISTORY AND PHYSICAL AND DISCHARGE SUMMARY: 73-year-old female patient of Dr. Nelson and Dr. Love with known history of valvular heart disease post aortic valve placement in 2004, mitral and tricuspid valve disease, hypertension, hyperlipidemia hypothyroidism, gastroesophageal reflux disease, and chronic neuropathy. The patient states that she developed discomfort across her back in the middle in the upper across the top of her back and then discomfort in her chest that was a pressure type sensation. Symptoms were associated with shortness of breath. No nausea, no diaphoresis, no arm involvement. Patient denies having a cough. She denies any edema. Patient came into [facility] emergency center for evaluation. Chest x-ray shows chronic changes without acute pulmonary process. CT of the thoracic aorta did not reveal evidence of aortic aneurysm or dissection, overall nonobstructive bowel gas pattern. Blood pressure on arrival here 80 185/88, heart rate in the 60s, 98% on room air. Blood pressure this morning 156/70 with a heart rate in the 60s, 96% on room air. White blood cell count 5.3, hemoglobin 12.1, platelet count 239. Sodium 130, potassium 4.5, BUN 13 and creatinine 0.6. Magnesium 2.0. Troponins were negative 3. Patient was placed on the observation unit and cardiology consult has been obtained. Patient does have an appointment tomorrow with Dr. Love and plan is for her to be discharged today in follow-up with Dr. Love in the office. Cardiology did add Norvasc to her home medications. Patient will be discharged home today in stable condition. Review of Systems All systems: negative Constitutional: Denies anorexia, Denies chills, Denies fatigue, Denies fever, Denies lethargy, Denies poor appetite, Denies weight gain, Denies weight loss Eyes: denies blurred vision, denies pain Ears, nose, mouth and throat: Denies dental pain, Denies dysphagia, Denies headache, Denies sore throat, Denies vertigo Cardiovascular: Reports chest pain, Reports shortness of breath, Denies dyspnea on exertion, Denies edema, Denies leg edema, Denies lightheadedness, Denies palpitations, Denies syncope Respiratory: Denies cough, Denies cough with sputum, Denies dyspnea, Denies excessive sputum, Denies hemoptysis, Denies home oxygen, Denies wheezing Gastrointestinal: Denies abdominal pain, Denies diarrhea, Denies loss of appetite, Denies nausea, Denies vomiting Genitourinary: Denies dysuria, Denies hematuria, Denies urgency, Denies urinary frequency Musculoskeletal: Denies frequent falls, Denies gait dysfunction, Denies muscle weakness, Denies myalgias Integumentary: Denies pruritus, Denies rash, Denies wounds Neurological: Denies aphasia, Denies change in mentation, Denies change in speech, Denies gait dysfunction, Denies numbness, Denies weakness Psychiatric: Denies anxiety, Denies depression Endocrine: Denies fatigue, Denies weight change Past Medical History Past Medical History: Asthma, GERD/Reflux, Hyperlipidemia, Hypertension, Neurologic Disorder, Osteoarthritis (OA), Thyroid Disorder Additional Past Medical History / Comment(s): Valvular heart disease status post aortic valve replacement, prolapsed mitral valve, seasonal ALLERGIES. Neuropathy. Remeutic fever as a child History of Any Multi-Drug Resistant Organisms: None Reported Past Surgical History: Bladder Surgery, Cardiac Valve Replacement, Ear Surgery, Hysterectomy, Joint Replacement Additional Past Surgical History / Comment(s): BLADDER SUSPENSION, AORTIC HEART VALVE REPLACEMENT in 2004, bilateral BUNIONECTOMYS, Past Anesthesia/Blood Transfusion Reactions: Motion Sickness Smoking Status: Never smoker Additional Past Alcohol Use History / Comment(s): The patient is a lifelong nonsmoker, no illicit drug use, no alcohol use. Patient was at home with her . She is independent and active. - Past Family History Brother(s) Family Medical History: Cancer Additional Family Medical History / Comment(s): LEUKEMIA Father Family Medical History: Coronary Artery Disease (CAD) Mother Family Medical History: Coronary Artery Disease (CAD) Son(s) Family Medical History: No Reported History Medications and Allergies Home Medications Medication Instructions Recorded Confirmed Type Atenolol [Tenormin] 50 mg PO HS 01/21/14 12/13/18 History Benazepril [Lotensin] 10 mg PO DAILY 01/21/14 12/13/18 History Difluprednate [Durezol] 1 drop RIGHT EYE MOFR 01/21/14 12/13/18 History Esomeprazole Magnesium [NexIUM] 40 mg PO DAILY 01/21/14 12/13/18 History Famotidine [Pepcid] 20 mg PO HS 01/21/14 12/13/18 History Gabapentin [Neurontin] 300 mg PO BID 01/21/14 12/13/18 History Levothyroxine Sodium [Synthroid] 100 mcg PO QAM 01/21/14 12/13/18 History Ezetimibe/Simvastatin [Vytorin 1 tab PO HS 05/10/15 12/13/18 History 10-20 mg Tablet] Calcium Carbonate/Vitamin D3 2 tab PO DAILY 12/30/16 12/13/18 History [Calcium 600-Vit D3 800 Tab] Furosemide [Lasix] 20 mg PO QAM 12/30/16 12/13/18 History Multivitamins, Thera [Multivitamin 1 tab PO DAILY 12/30/16 12/13/18 History (formulary)] Prolia 1 injection SQ Q180D 09/16/17 12/13/18 History Aspirin EC [Ecotrin Low Dose] 81 mg PO DAILY 12/13/18 12/13/18 History Bisacodyl [Dulcolax] 5 mg PO BID 12/13/18 12/13/18 History Calcium Carbonate [Calcium] 600 mg PO DAILY 12/13/18 12/13/18 History Polyethylene Glycol 3350 [Miralax] 17 gm PO DAILY 12/13/18 12/13/18 History amLODIPine [Norvasc] 2.5 mg PO DAILY #30 tab 12/14/18 Rx Allergies Allergy/AdvReac Type Severity Reaction Status Date / Time Penicillins Allergy Unknown Swelling Verified 12/13/18 23:22 Physical Exam Vitals: Vital Signs Temp Pulse Pulse Pulse Resp BP BP 12/14/18 08:00 98.3 F 57 L 16 12/14/18 03:32 62 15 154/74 12/14/18 03:06 18 12/13/18 23:19 97.6 F 60 18 178/72 12/13/18 22:54 59 L 16 149/68 12/13/18 21:00 61 18 175/83 12/13/18 19:17 57 L 16 139/81 12/13/18 16:58 63 16 162/85 12/13/18 15:59 97.8 F 60 18 185/88 BP Pulse Ox 12/14/18 08:00 156/79 96 12/14/18 03:32 99 12/14/18 03:06 12/13/18 23:19 98 12/13/18 22:54 97 12/13/18 21:00 95 12/13/18 19:17 98 12/13/18 16:58 98 12/13/18 15:59 98 Intake and Output 12/13/18 12/14/18 12/14/18 22:59 06:59 14:59 Other: Voiding Method Toilet # Voids 1 Weight 61.235 kg - Constitutional General appearance: average body habitus, cooperative, no disheveled, no mild distress, no morbidly obese, no acute distress, no obese, no severe distress - EENT Eyes: no abnormal pupil, no anicteric sclerae, no disc margins sharp, no e dentulous, no EOMI, no PERRLA, no fundus normal, no photophobia, no dentition normal, no poor dentition, no ptosis, no scleral icterus, normal appearance ENT: no hard of hearing, no hearing grossly normal, no NA/AT, normal oropharynx, no other, no pharyngeal erythema, no thrush, no tonsillar exudates, no tonsillar swelling Ears: bilateral: normal - Neck Neck: no lymphadenopathy, normal ROM, no other, no rigidity, no stridor, no thyromegaly Carotids: bilateral: upstroke normal Thyroid: bilateral: normal size - Respiratory Respiratory: bilateral: CTA, diminished - Cardiovascular Rhythm: regular Heart sounds: normal: S1 Abnormal Heart Sounds: systolic murmur, S3 Gallop - Gastrointestinal General gastrointestinal: no absent bowel sounds, normal bowel sounds, no distended, hepatomegaly, hyperactive bowel sounds, no normal bowel sounds, no organomegaly, no rigid, no scaphoid, soft, splenomegaly, no tenderness, no umbilical hernia, no ventral hernia - Integumentary Integumentary: no calor, no cellulitis, no cyanotic, no decreased turgor, flushed, no jaundiced, normal, no normal turgor, pale, rash, no ulcer - Neurologic Neurologic: CNII-XII intact - Musculoskeletal Musculoskeletal: gait normal, generalized weakness, no strength equal bilaterally, no right sided weakness, no left sided weakness - Psychiatric Psychiatric: A&O x's 3, appropriate affect, no intact judgment & insight Results CBC & Chem 7: 12/13/18 16:30 12/13/18 16:30 Labs: Abnormal Lab Results - Last 24 Hours (Table) 12/13/18 Range/Units 16:30 Sodium 130 L (137-145) mmol/L Chloride 94 L (98-107) mmol/L Thrombosis Risk Factor Assmnt - Choose All That Apply Each Factor Represents 1 point: Age 41-60 years Thrombosis Risk Factor Assessment Total Risk Factor Score: 1 Thrombosis Risk Factor Assessment Level: Low Risk Assessment and Plan Plan: 1. Upper back and chest discomfort with shortness of breath. Troponins have been negative. Acute coronary syndrome rolled out. Cardiology has cleared the patient for discharge. Patient to follow up with Dr. Love tomorrow as previously scheduled. 2. Hypertension, accelerated hypertension on admission, stable. 3. Valvular heart disease status post aortic valve replacement and known mitral valve and tricuspid valve disease. 4. Chronic neuropathy. 5. Hypothyroidism. 6. Hyperlipidemia. Patient placed on the observation unit. Discharge plan:home Discharge Medication List Atenolol [Tenormin] 50 mg PO HS 01/21/14 [History] Benazepril [Lotensin] 10 mg PO DAILY 01/21/14 [History] Difluprednate [Durezol] 1 drop RIGHT EYE MOFR 01/21/14 [History] Esomeprazole Magnesium [NexIUM] 40 mg PO DAILY 01/21/14 [History] Famotidine [Pepcid] 20 mg PO HS 01/21/14 [History] Gabapentin [Neurontin] 300 mg PO BID 01/21/14 [History] Levothyroxine Sodium [Synthroid] 100 mcg PO QAM 01/21/14 [History] Ezetimibe/Simvastatin [Vytorin 10-20 mg Tablet] 1 tab PO HS 05/10/15 [History] Calcium Carbonate/Vitamin D3 [Calcium 600-Vit D3 800 Tab] 2 tab PO DAILY 12/30/16 [History] Furosemide [Lasix] 20 mg PO QAM 12/30/16 [History] Multivitamins, Thera [Multivitamin (formulary)] 1 tab PO DAILY 12/30/16 [History] Prolia 1 injection SQ Q180D 09/16/17 [History] Aspirin EC [Ecotrin Low Dose] 81 mg PO DAILY 12/13/18 [History] Bisacodyl [Dulcolax] 5 mg PO BID 12/13/18 [History] Calcium Carbonate [Calcium] 600 mg PO DAILY 12/13/18 [History] Polyethylene Glycol 3350 [Miralax] 17 gm PO DAILY 12/13/18 [History] amLODIPine [Norvasc] 2.5 mg PO DAILY #30 tab 12/14/18 [Rx] Impression and plan of care have been directed as dictated by the signing physician. Lynette Reyes nurse practitioner acting as scribe for signing carolina can.
[2018-12-14] MEDS ORDERED: POLYETHYLENE GLYCOL 3350 17 GM POWD.PACK PO SCH (12:00)
--- NOTE | 2018-12-14 13:18 | ECHOF ---
Referral Reason:chest pain MEASUREMENTS -------- HEIGHT: 165.1 cm WEIGHT: 61.2 kg BP: 156/79 IVSd: 1.3 cm (0.6 - 1.1) LVIDd: 3.3 cm (3.9 - 5.3) LVPWd: 1.2 cm (0.6 - 1.1) EDV(Teich): 43 ml IVSs: 1.5 cm LVIDs: 2.3 cm LVPWs: 1.3 cm %IVS Thck: 14 % ESV(Teich): 17 ml EF(Teich): 60 % %FS: 31 % SV(Teich): 25 ml LA Diam: 3.8 cm (2.7 - 3.8) RVIDd: 3.7 cm (< 3.3) LALs A4C: 5.1 cm LAAs A4C: 16.5 cm LAESV A-L A4C: 45 ml LAESV MOD A4C: 44 ml LALs A2C: 5.8 cm LAAs A2C: 19.4 cm LAESV A-L A2C: 55 ml LAESV MOD A2C: 53 ml LAESV(A-L): 53 ml LAESV Index (A-L): 31.67 ml/m Ao Diam: 3.1 cm (2.0 - 3.7) AV Cusp: 1.3 cm (1.5 - 2.6) EPSS: 0.4 cm MV E Conrad: 0.97 m/s MV DecT: 279 ms MV Dec Gooding: 3.5 m/s MV A Conrad: 0.64 m/s MV E/A Ratio: 1.50 MV PHT: 81 ms AV Vmax: 2.57 m/s AV maxP.50 mmHg AV Vmax: 2.72 m/s AV Vmean: 1.91 m/s AV maxP.67 mmHg AV meanP.13 mmHg AV Env.Ti: 323 ms AV VTI: 61.6 cm TR Vmax: 2.33 m/s TR maxP.68 mmHg RAP: 5.00 mmHg RVSP: 26.68 mmHg MV EF SLOPE: 62.32 mm/s (70 - 150) MV EXCURSION: 13.54 mm (> 18.000) FINDINGS -------- Sinus rhythm. This was a technically good study. The left ventricular size is normal. There is mild concentric left ventricular hypertrophy. Overa ll left ventricular systolic function is normal with, an EF between 60 - 65 %. The right ventricle is mildly enlarged. Normal LA size by volume 22+/-6 ml/m2. The right atrium is normal in size. Interatrial and interventricular septum intact. Peak/mean gradient across the Aortic Valve is 29.67mmHg / 16.13mmHg. Normally functioning bioprosth etic valve. The mitral valve leaflets are mildly thickened. Mild mitral regurgitation is present. [id number] tricuspid regurgitation present. Right ventricular systolic pressure is normal at < 35 mmHg. The aortic root size is normal. IVC Not well visulized. There is no pericardial effusion. CONCLUSIONS -------- 1. Sinus rhythm. 2. This was a technically good study. 3. The left ventricular size is normal. 4. There is mild concentric left ventricular hypertrophy. 5. Overall left ventricular systolic function is normal with, an EF between 60 - 65 %. 6. The right ventricle is mildly enlarged. 7. Normal LA size by volume 22+/-6 ml/m2. 8. The right atrium is normal in size. 9. Interatrial and interventricular septum intact. 10. Peak/mean gradient across the Aortic Valve is 29.67mmHg / 16.13mmHg. 11. Normally functioning bioprosthetic valve. 12. The mitral valve leaflets are mildly thickened. 13. Mild mitral regurgitation is present. 14. Dqbs-jr-yqvisuhz tricuspid regurgitation present. 15. Right ventricular systolic pressure is normal at < 35 mmHg. 16. The aortic root size is normal. 17. IVC Not well visulized. 18. There is no pericardial effusion. FISHERIES DIVER: Melinda Sanchez RDCS
[2018-12-15] MEDS ORDERED: NON-FORMULARY DRUG (Difluprednate [Durezol] 1 DROP) RIGHT EYE SCH (09:00)
== END 2018-12-14 11:27 | disposition home or self-care (01) ==
LOC: EC 15:50 → 1SOBS 22:09
PROVIDERS: ADMIT Internal Medicine; ATTEND Internal Medicine
DX: R07.89 Other chest pain (principal); M54.6 Pain in thoracic spine; J45.909 Unspecified asthma, uncomplicated; I10 Essential (primary) hypertension; I08.1 Rheumatic disorders of both mitral and tricuspid valves; E87.1 Hypo-osmolality and hyponatremia; E78.5 Hyperlipidemia, unspecified; G62.9 Polyneuropathy, unspecified; M19.90 Unspecified osteoarthritis, unspecified site; R00.1 Bradycardia, unspecified; E03.9 Hypothyroidism, unspecified; K21.9 Gastro-esophageal reflux disease without esophagitis; Z79.890 Hormone replacement therapy; Z79.82 Long term (current) use of aspirin; Z79.810 Long term (current) use of selective estrogen receptor modulators (SERMs); Z79.899 Other long term (current) drug therapy; Z88.0 Allergy status to penicillin; Z96.60 Presence of unspecified orthopedic joint implant; Z95.2 Presence of prosthetic heart valve; Z86.19 Personal history of other infectious and parasitic diseases; Z80.6 Family history of leukemia; Z82.49 Family history of ischemic heart disease and other diseases of the circulatory system
CPT/HCPCS: 99285; 36415; 93005; 93306; 83880; 80061; 80053; 83735; 84484 ×2; 85025; 85610; 85730; 71046; 71275; 74174; G0378 ×2; Q9967

== ENCOUNTER → 2018-12-23 | Outpatient (CLI) | payer MEDICARE, BC ==
[~2018-12-23] MED LIST changes: -DENOSUMAB 60 MG/ML 1 ML SYRINGE SQ NR; +DENOSUMAB 60 MG/ML 1 ML SYRINGE SQ ONE
[2018-12-23 11:53] VITALS: BP 120/67; PULSE 56; RESP 16; TEMP 98.2
== END | disposition home or self-care (01) ==
LOC: PROCWHC3 11:28
PROVIDERS: ATTEND Internal Medicine Geriatric Medicine
DX: M81.0 Age-related osteoporosis without current pathological fracture (principal)
CPT/HCPCS: 96372; J0897

== ENCOUNTER 2019-01-12 10:54 | Day surgery (SDC) | payer MEDICARE, BC ==
[2019-01-07 08:31] VITALS: BMI 22.3
[~2019-01-12 10:54] MED LIST changes: +ALPRAZolam 0.25 MG TAB PO PRN; +ALPRAZolam 0.5 MG TAB PO PRN; +ASPIRIN 325 MG TAB PO STA; +ATORVASTATIN 80 MG TAB PO STA; -DENOSUMAB 60 MG/ML 1 ML SYRINGE SQ ONE; +NITROGLYCERIN SL TABS 0.4 MG TAB SUBLINGUAL PRN; +SODIUM CHLORIDE 0.9% 1,000 ML in EMPTY BAG 1 BAG IV ONE
[2019-01-12 11:31] VITALS: RESP 16; TEMP 97.7
[2019-01-12] MEDS ORDERED: SODIUM CHLORIDE 0.9% 1,000 ML IV ONE (11:32)
[2019-01-12] MEDS ORDERED: VERAPAMIL 2.5 MG/ML 2 ML AMP ONE (11:49)
[2019-01-12] MEDS ORDERED: LIDOCAINE 1% INJ 10MG/ML (20 ML MDV) ONE (11:49)
[2019-01-12] MEDS ORDERED: fentaNYL (PF) 50 MCG/ML 2 ML AMP ONE (11:50)
[2019-01-12] MEDS ORDERED: HEPARIN SODIUM 1,000 UN/ML (10ML VL) ONE (11:50)
[2019-01-12] MEDS ORDERED: fentaNYL (PF) 50 MCG/ML 2 ML AMP IV ONE (12:10)
[2019-01-12] MEDS ORDERED: LIDOCAINE 1% INJ 10MG/ML (20 ML MDV) SQ ONE (12:18)
[2019-01-12] MEDS ORDERED: VERAPAMIL SYRINGE (5 MG/10 ML) INTRAARTER ONE (12:21)
[2019-01-12] MEDS ORDERED: HEPARIN SODIUM 1,000 UN/ML (10ML VL) IV ONE (12:27)
[2019-01-12] MEDS ORDERED: MIDAZOLAM (PF) 2 MG/2 ML VIAL IVP ONE (12:27)
[2019-01-12] MEDS ORDERED: IOPAMIDOL-370 150ML BTL INJ ONE (12:34)
[2019-01-12] MEDS ORDERED: RX INFO: IV CONTRAST WAS GIVEN 1 EACH MISC MISCELLANE PRN (12:39)
[2019-01-12] MEDS ORDERED: PROLIA SQ SCH (12:45)
[2019-01-12] MEDS ORDERED: SODIUM CHLORIDE 0.9% 1,000 ML IV SCH (12:45)
[2019-01-12] MEDS ORDERED: NON-FORMULARY DRUG (Difluprednate [Durezol] 1 DROP) RIGHT EYE SCH (12:45)
--- NOTE | 2019-01-12 14:02 | CC ---
CARDIAC CATHETERIZATION REPORT Mrs. Patel is a 73-year-old female with known history of aortic valve replacement, hypertension, hyperlipidemia, who has been complaining of episode of chest discomfort. In view of that, recommendation made regarding cardiac catheterization. The procedures, risks, and complication were discussed with the patient who is in full understanding and agreement. PROCEDURE: Patient was brought to the cath lab technologist in a fasting semi-sedated state after receiving fentanyl and Benadryl and achieving moderate conscious sedated state using Xylocaine anesthesia and Seldinger technique, a 6-Bermudian sheath was introduced in the right radial artery. Selective right and left coronary angiography performed using 5-Bermudian 3.5 bend right and left Noé catheter. Multiple views of the coronary artery including hemiaxial views were obtained. Following that, catheters and sheath were removed. Hemostasis was obtained with deployment of a TR band. There was no immediate complication. Patient is returned to her room in stable condition. Of note, the patient received 3500 units of intravenous heparin as well as intra-arterial verapamil. FINDINGS: FLUOROSCOPY: There was calcification involving the left anterior descending artery and the left circumflex. LEFT MAIN: This is a large-sized vessel, bifurcating into left circumflex, left anterior descending artery. Left main coronary artery has no evidence of high-grade stenosis. LEFT ANTERIOR DESCENDING ARTERY: This is a large-sized vessel reaching toward the apex, tapers down in distal third, giving rise to a moderately sized diagonal branch. At the takeoff of the diagonal branch, there is a 30% to 40% plaque. There is another plaque of 30% in the mid LAD. The rest of the vessel has no high-grade stenosis. LEFT CIRCUMFLEX: This is a nondominant vessel, giving rise to a moderately sized obtuse marginal branch. The left circumflex as well as branches have no evidence of obstructive coronary artery disease. RIGHT CORONARY ARTERY: This is a large dominant vessel, bifurcating into PDA and posterolateral segment branches. The right coronary artery in the mid segment has mild intimal disease without any evidence of high-grade stenosis. LEFT VENTRICULOGRAM: Left ventriculogram is not performed. CONCLUSION: 1. Calcified coronary arteries. 2. Mild disease in the LAD and the right coronary artery. RECOMMENDATION: In view of finding anatomy, I recommend continue medical therapy. Those findings and recommendation were discussed with the patient and her family who is in full understanding and agreement. Duration of procedure is 15 minutes. MMODL / IJN: [id number] /
[2019-01-12 18:17] VITALS: BP 150/70; PULSE 54
[2019-01-12] MEDS ORDERED: NON-FORMULARY DRUG (Aspirin Ec 81 MG) PO SCH (21:00)
[2019-01-12] MEDS ORDERED: ATENOLOL 50 MG TAB PO SCH (21:00)
[2019-01-12] MEDS ORDERED: FAMOTIDINE 20 MG TAB PO SCH (21:00)
[2019-01-12] MEDS ORDERED: NON-FORMULARY DRUG (Benazepril 10 MG) PO SCH (21:00)
[2019-01-12] MEDS ORDERED: NON-FORMULARY DRUG (Ezetimibe/Simvastatin [Vytorin 10-20 Mg Tablet] 1 TAB) PO SCH (21:00)
[2019-01-12] MEDS ORDERED: GABAPENTIN 300 MG CAP PO SCH (21:00)
[2019-01-12] MEDS ORDERED: BISACODYL 5 MG TABLET.DR PO SCH (21:00)
[2019-01-13] MEDS ORDERED: PANTOPRAZOLE 40 MG TABLET PO SCH (07:30)
[2019-01-13] MEDS ORDERED: CALCIUM CARB-VIT D 500MG-200UN 1 EACH TAB PO SCH (09:00)
[2019-01-13] MEDS ORDERED: FUROSEMIDE 20 MG TAB PO SCH (09:00)
[2019-01-13] MEDS ORDERED: LEVOTHYROXINE 100 MCG TAB PO SCH (09:00)
[2019-01-13] MEDS ORDERED: amLODIPine 2.5 MG TAB PO SCH (09:00)
[2019-01-13] MEDS ORDERED: CALCIUM CARBONATE 500 MG CHEWABLE PO SCH (09:00)
[2019-01-13] MEDS ORDERED: MULTIVITAMINS, THERA 1 EACH TAB PO SCH (09:00)
[2019-01-13] MEDS ORDERED: POLYETHYLENE GLYCOL 3350 17 GM POWD.PACK PO SCH (09:00)
== END 2019-01-12 17:35 | disposition home or self-care (01) ==
LOC: CATHCVL 10:54
PROVIDERS: ATTEND Internal Medicine Interventional Cardiology
DX: I25.110 Atherosclerotic heart disease of native coronary artery with unstable angina pectoris (principal); I25.84 Coronary atherosclerosis due to calcified coronary lesion; I10 Essential (primary) hypertension; E78.2 Mixed hyperlipidemia; E78.00 Pure hypercholesterolemia, unspecified; Z95.2 Presence of prosthetic heart valve; Z82.49 Family history of ischemic heart disease and other diseases of the circulatory system; R60.9 Edema, unspecified; K21.9 Gastro-esophageal reflux disease without esophagitis; R35.1 Nocturia; M25.50 Pain in unspecified joint; Z79.82 Long term (current) use of aspirin; Z79.890 Hormone replacement therapy; Z79.899 Other long term (current) drug therapy; Z88.0 Allergy status to penicillin
CPT/HCPCS: 93454; C1894; C1769; J2001; J3010; J1644; J2250; Q9967

== ENCOUNTER → 2019-06-25 | Outpatient (CLI) | payer MEDICARE, BC ==
--- NOTE | 2019-06-26 10:22 | BD ---
EXAMINATION TYPE: Axial Bone Density DATE OF EXAM: 06/25/2019 COMPARISON: 04.09.2017 CLINICAL HISTORY: 74 YR OLD FEMALE....ICD-10 CODE: M89.9 DISORDER OF BONE Height: 63.5 Weight: 142 FRAX RISK QUESTIONS: Glucocorticoids (More than 3mos): YES (Ex: prednisone, prednisolone, methylprednisolone, dexamethasone, and hydrocortisone). History of Fracture in Adulthood: YES RISK FACTORS HISTORY OF: HX OF FX TO RT HAND > 50 Family History of Osteoporosis: UNKNOWN Postmenopausal woman: YES AT AGE 48 HYST. Take estrogen and/or progesterone medications: YES, IN THE PAST FOR ABOUT 15 YRS Hyperparathyroidism: NO Adrenal Insufficiency: NO MEDICATIONS: Thyroid Medications: YES, SYNTHROID FOR ABOUT 15 YRS Osteoporosis Medications: PROLIA SHOTS, FOR ABOUT 3 YRS Additional Medications: BP MEDS, REFLUX MEDS, STATIN FOR CHOLESTEROL, CALCIUM AND VIT D Additional History: REFLUX, OSTEOPOROSIS, CHOLESTEROL, STEROIDAL INJECTIONS EXAM MEASUREMENTS: Bone mineral densitometry was performed using the [employer] System. Bone mineral density as measured about the Lumbar spine is: ----- L1-L4(G/cm2): 1.103 T Score Values are as follows: ----- L1: -2.6 ----- L2: -1.0 ----- L3: 0.4 ----- L4: 1.1 ----- L1-L4: -0.6 Bone mineral density has: Increased 9.7% SINCE SCAN FROM 04.09.2017 Bone mineral density about the R hip (g/cm2): 0.744 Bone mineral density about the L hip (g/cm2): 0.736 T Score values are as follows: -----R Neck: -1.8 -----L Neck: -1.6 -----R Total: -2.1 -----L Total: -2.2 Bone mineral density has: Decreased -3.0% SINCE STUDY OF 04.09.2017 FRAX%s: THERE IS A 28.3% CHANCE FOR A MAJOR OSTEOPOROTIC FX AND A 7.2% FOR HIP.....PROBABILITY FOR FX IN 10 YRS TIME IMPRESSION: Osteopenia (T Score between -2.5 and -1). There is slightly increased risk of fracture and the patient may be considered for treatment. Re-Screen 2-5 years. NOTE: T-SCORE=SD OF THE YOUNG ADULT MEAN.
--- NOTE | 2019-06-29 08:54 | MM ---
Reason for exam: screening (asymptomatic). Last mammogram was performed 1 year and 1 month ago. History: Patient is postmenopausal. Benign excisional biopsy of the left breast, 1993. Benign excisional biopsy of the right breast, 1993. Took estrogen for 17 years beginning at age 48. Physical Findings: A clinical breast exam by your physician is recommended on an annual basis and results should be correlated with mammographic findings. MG 3D Screening Mammo W/Cad Bilateral CC and MLO view(s) were taken. Prior study comparison: May 29, 2018, bilateral MG 3d screening mammo w/cad. May 27, 2017, bilateral MG 3d screening mammo w/cad. The breast tissue is extremely dense which could obscure a lesion on mammography. Previous mammotome biopsy in the left breast. Asymmetries in both breasts. No significant changes when compared with prior studies. ASSESSMENT: Benign, BI-RAD 2 RECOMMENDATION: Routine screening mammogram of both breasts in 1 year.
== END | disposition home or self-care (01) ==
LOC: RADMAMWWP 15:34
PROVIDERS: ATTEND Obstetrics & Gynecology
DX: Z12.31 Encounter for screening mammogram for malignant neoplasm of breast (principal); M85.89 Other specified disorders of bone density and structure, multiple sites
CPT/HCPCS: 77063; 77067; 77080

== ENCOUNTER → 2019-06-30 | Outpatient (CLI) | payer MEDICARE, BC ==
[~2019-06-30] MED LIST changes: -ALPRAZolam 0.25 MG TAB PO PRN; -ALPRAZolam 0.5 MG TAB PO PRN; -ASPIRIN 325 MG TAB PO STA; -ATORVASTATIN 80 MG TAB PO STA; +DENOSUMAB 60 MG/ML 1 ML SYRINGE SQ ONE; -NITROGLYCERIN SL TABS 0.4 MG TAB SUBLINGUAL PRN; -SODIUM CHLORIDE 0.9% 1,000 ML in EMPTY BAG 1 BAG IV ONE
[2019-06-30 11:58] VITALS: BP 158/88; PULSE 68; RESP 16; TEMP 97.6
== END | disposition home or self-care (01) ==
LOC: PROCWHC3 11:31
PROVIDERS: ATTEND Internal Medicine Geriatric Medicine
DX: M81.0 Age-related osteoporosis without current pathological fracture (principal)
CPT/HCPCS: 96372; J0897

== ENCOUNTER → 2019-08-27 | Outpatient (CLI) | payer MEDICARE, BC ==
--- NOTE | 2019-08-27 16:22 | XR ---
EXAM TYPE: LUMBAR SPINE X RAY SERIES COMPARISON: NONE HISTORY: Pain TECHNIQUE: 3 views are submitted. FINDINGS: Alignment is anatomic. The pedicles are intact. The transverse processes are intact. There is no s pondylolisthesis. There is a scoliotic curvature of the spine with multilevel severe degenerative ch heather and facet arthropathy. Grade 1 anterolisthesis L4 and L5. Vascular calcifications noted. Right S I joint arthropathy noted. IMPRESSION: 1. Multilevel severe degenerative disc disease with grade 1 anterolisthesis L4 and L5. 2. Multilevel facet arthropathy. Suspect multilevel foraminal encroachment and canal stenosis recomme nd follow-up MRI..
== END | disposition home or self-care (01) ==
LOC: LABWHC1 14:56
PROVIDERS: ATTEND Internal Medicine Geriatric Medicine
DX: M51.36 Other intervertebral disc degeneration, lumbar region (principal); M43.16 Spondylolisthesis, lumbar region; M46.96 Unspecified inflammatory spondylopathy, lumbar region
CPT/HCPCS: 72100

== ENCOUNTER → 2019-09-21 | Outpatient (CLI) | payer MEDICARE, BC ==
--- NOTE | 2019-09-22 05:10 | MR ---
EXAMINATION TYPE: MR lumbar spine wo con DATE OF EXAM: 09/21/2019 COMPARISON: None HISTORY: 74-year-old female with pain, Spinal Stenosis TECHNIQUE: Multiplanar, multisequence images of the lumbar spine were acquired. FINDINGS: Vertebral body heights are preserved. Degenerated dextroconvex scoliosis centered along the mid lumbar spine. Advanced hypertrophic facet arthropathy throughout. Degenerative grade 1 retrolistheses at L1-L4 levels. Grade 1, nearly grade 2 anterolisthesis at L4-L5 . No suspicious bone marrow replacement. Moderate multilevel degenerative disc disease with desiccated, narrowed, and bulging discs. Small posterior annular fissures are noted at L3-L4 and L4-L5 as well as L5-S1. Degenerative thinning of the interspinous ligaments with abutment near abutment of the spinous proces ses compatible with Baastrup's disease. Additional ligamentum flavum thickening mid to lower lumbar spine. Conus medullaris is normal. At T12-L1, bulging disc without significant canal or foraminal stenosis. At L1-L2, hypertrophic facet arthropathy with bulging disc and grade 1 retrolisthesis. No significant spinal canal stenosis. However, changes result in moderate left neuroforaminal stenosis. At L2-L3, hypertrophic facet arthropathy with ligamentum flavum thickening and grade 1 retrolisthesis and bulging disc. No significant spinal canal stenosis. Changes result in moderate left and mild rig ht neuroforaminal stenosis. At L3-L4, bulging disc with facet arthropathy, ligamentum flavum thickening, and grade 1 retrolisthes is. No significant spinal canal stenosis. However, changes result in moderate bilateral neuroforamina l stenosis. At L4-L5, hypertrophic facet arthropathy with ligamentum flavum thickening, uncovering of the posteri or intervertebral disc, and grade 1, nearly grade 2 anterolisthesis. Changes result in mild to modera te spinal canal stenosis, some lateral recess narrowing with abutment of the traversing right L5 nerv e root, and mild to moderate right neuroforaminal stenosis. At L5-S1, facet arthropathy with bulging disc. There is a right lateral disc osteophyte complex abutt ing the extraforaminal right L5 nerve root. No significant spinal canal stenosis. Mild right neurofor aminal narrowing. Tiny 9 mm cortical cyst right kidney. Otherwise, no prevertebral or paravertebral soft tissue abnorma lity seen. IMPRESSION: 1. Degenerated dextroconvex scoliosis with multilevel advanced hypertrophic facet arthropathy and lig amentum flavum thickening. Baastrup's disease. 2. Moderate multilevel degenerative disc disease. Small posterior annular fissures noted from L3 thro ugh S1 levels. 3. Degenerative grade 1 retrolisthesis from L1 through L4 levels and grade 1/grade 2 anterolisthesis at L4-L5. 4. Changes result in ebuq-nj-pyrzovch spinal canal stenosis at L4-L5. There is additional right later al recess stenosis at this level with abutment of the traversing right L5 nerve root. 5. At L5-S1, there is a right lateral disc osteophyte complex abutting the extraforaminal right L5 ne rve root. 6. Additional variable moderate neural foraminal stenoses as outlined above.
== END | disposition home or self-care (01) ==
LOC: RADMRIMAIN 13:12
PROVIDERS: ATTEND Internal Medicine Geriatric Medicine
DX: M48.061 Spinal stenosis, lumbar region without neurogenic claudication (principal); M43.16 Spondylolisthesis, lumbar region; M47.816 Spondylosis without myelopathy or radiculopathy, lumbar region; M51.36 Other intervertebral disc degeneration, lumbar region; M41.86 Other forms of scoliosis, lumbar region
CPT/HCPCS: 72148

== ENCOUNTER → 2020-01-05 | Outpatient (CLI) | payer MEDICARE, BC ==
[~2020-01-05] MED LIST changes: +DENOSUMAB 60 MG/ML 1 ML SYRINGE SQ NR; -DENOSUMAB 60 MG/ML 1 ML SYRINGE SQ ONE
[2020-01-05 14:48] VITALS: BP 137/69; PULSE 58; RESP 16; TEMP 97.9
== END | disposition home or self-care (01) ==
LOC: PROCWHC3 14:27
PROVIDERS: ATTEND Internal Medicine Geriatric Medicine
DX: M81.0 Age-related osteoporosis without current pathological fracture (principal)
CPT/HCPCS: 96372; J0897

== ENCOUNTER → 2020-06-27 | Outpatient (CLI) | payer MEDICARE, BC ==
--- NOTE | 2020-06-28 13:20 | MM ---
Reason for exam: screening (asymptomatic). Last mammogram was performed 1 year ago. History: Patient is postmenopausal. Benign excisional biopsy of the left breast, 1993. Benign excisional biopsy of the right breast, 1993. Took estrogen for 17 years beginning at age 48. Physical Findings: A clinical breast exam by your physician is recommended on an annual basis and results should be correlated with mammographic findings. MG 3D Screening Mammo W/Cad Bilateral CC and MLO view(s) were taken. Prior study comparison: June 25, 2019, bilateral MG 3d screening mammo w/cad. May 29, 2018, bilateral MG 3d screening mammo w/cad. There are benign appearing round calcifications in the right breast. There is chronic nodularity in the left breast. No significant changes when compared with prior studies. ASSESSMENT: Benign, BI-RAD 2 RECOMMENDATION: Routine screening mammogram of both breasts in 1 year.
== END | disposition home or self-care (01) ==
LOC: RADMAMWWP 13:05
PROVIDERS: ATTEND Obstetrics & Gynecology
DX: Z12.31 Encounter for screening mammogram for malignant neoplasm of breast (principal)
CPT/HCPCS: 77063; 77067

== ENCOUNTER → 2020-07-12 | Outpatient (CLI) | payer MEDICARE, BC ==
[2020-07-12 11:22] VITALS: BP 128/74; PULSE 80; RESP 16; TEMP 97.4
== END | disposition home or self-care (01) ==
LOC: PROCWHC3 11:00
PROVIDERS: ATTEND Internal Medicine Geriatric Medicine
DX: M81.0 Age-related osteoporosis without current pathological fracture (principal)
CPT/HCPCS: 96372; J0897

== ENCOUNTER → 2020-07-28 | Outpatient (CLI) | payer MEDICARE, BC ==
--- NOTE | 2020-07-28 11:22 | CT ---
EXAMINATION TYPE: CT brain wo con DATE OF EXAM: 07/28/2020 HISTORY: MILLARD CT DLP: 892.1 mGycm. Automated Exposure Control for Dose Reduction was Utilized. TECHNIQUE: CT scan of the head is performed without contrast. COMPARISON: None. FINDINGS: There is no acute intracranial hemorrhage or midline shift identified. There is diffuse v entricular and sulcal prominence consistent with diffuse age-related cerebral atrophy. There is low- attenuation in the periventricular white matter consistent with chronic small vessel ischemic change. Nasal septum deviated to right of midline. The globes are intact and the visualized sinuses are macey r. IMPRESSION: No acute intracranial hemorrhage or midline shift. There is mild to moderate diffuse ag e-related cerebral atrophy and chronic small vessel ischemic change noted.
--- NOTE | 2020-07-28 11:30 | XR ---
EXAMINATION TYPE: XR cervical spine comp DATE OF EXAM: 07/28/2020 COMPARISON: NONE HISTORY: Headache TECHNIQUE: Four views are submitted. FINDINGS: The odontoid is intact. There are no compression deformities. The prevertebral soft tissue structur es are within normal limits. Calcification soft tissue the neck likely related carotid artery. Sever e degenerative disc disease at levels C3-C7. There is a 4 mm anterolisthesis of C3 relative to C4. Po sterior spondylosis at C4-C5 with slight retrolisthesis. Hypertrophic spurring in multilevel foramina l bilateral encroachment greater on the left. IMPRESSION: 1. Severe multilevel degenerative disc disease with bilateral foraminal encroachment. Recommend follo w-up MRI. 2. There is a 4 mm anterolisthesis of C3 on C4. This could also be correlated with MRI.
== END | disposition home or self-care (01) ==
LOC: RADCTMAIN 10:43
PROVIDERS: ATTEND Nurse Practitioner Family
DX: I67.82 Cerebral ischemia (principal); G31.1 Senile degeneration of brain, not elsewhere classified; M43.12 Spondylolisthesis, cervical region; M50.30 Other cervical disc degeneration, unspecified cervical region
CPT/HCPCS: 70450; 72050

== ENCOUNTER → 2020-09-13 | Outpatient (CLI) | payer MEDICARE, BC ==
--- NOTE | 2020-09-13 16:28 | XR ---
EXAMINATION TYPE: XR chest 2V DATE OF EXAM: 09/13/2020 COMPARISON: Chest x-ray 12/13/[address] chest 12/13/2018 HISTORY: R 59.9 TECHNIQUE: Frontal and lateral views of the chest are obtained. FINDINGS: Patient is post median sternotomy and rotated. No evident airspace disease, pneumothorax, or pleural effusion. Cardiac mediastinal silhouette is stable. Pulmonary vascularity and peg are unr emarkable. Patient shows aortic valve replacement change. There are coronary artery calcifications. L edie nodule seen on prior CT along the right hemidiaphragm is not identified certainty on plain film. IMPRESSION: No acute cardiopulmonary process. Nonvisualization of lung nodule along the right hemidi aphragm
== END ==
LOC: RADXRMAIN 15:34
PROVIDERS: ATTEND Nurse Practitioner Gerontology
DX: R59.9 Enlarged lymph nodes, unspecified (principal)
CPT/HCPCS: 71046

== ENCOUNTER → 2020-09-27 | Outpatient (CLI) | payer MEDICARE, BC ==
--- NOTE | 2020-09-28 08:44 | USB ---
Reason for exam: clinical finding. History: Patient is postmenopausal. Benign excisional biopsy of the left breast, 1993. Benign excisional biopsy of the right breast, 1993. Took estrogen for 17 years beginning at age 48. Physical Findings: Nurse did not find any significant physical abnormalities on exam. US Breast Axilla LT Left limited breast ultrasound including focal area of concern, retroareolar and axilla demonstrates no cystic or solid lesion seen. These results were verbally communicated with the patient and result sheet given to the patient on 09/27/20. ASSESSMENT: Negative, BI-RAD 1 RECOMMENDATION: Return to routine screening mammogram schedule for both breasts. Back on schedule for June 2021. Manage patient on a clinical basis.
== END ==
LOC: RADUSWWP 15:04
PROVIDERS: ATTEND Internal Medicine Geriatric Medicine
DX: R92.8 Other abnormal and inconclusive findings on diagnostic imaging of breast (principal); Z78.0 Asymptomatic menopausal state

== ENCOUNTER → 2020-09-28 | Outpatient (CLI) | payer MEDICARE, BC ==
[2020-09-29 02:04] LABS: African American GFR (CKD) 98.2 (60.0-200.0); Albumin 4.3 g/dL (3.80-4.90); Albumin/Globulin Ratio 1.59 (1.60-3.17); Anion Gap 10.5 mmol/L (4.00-12.00); BUN/Creat Ratio 17.14 Ratio (12.00-20.00); Calcium 9.7 mg/dL (8.7-10.3); Carbon Dioxide 24.5 mmol/L (21.6-31.8); Globulin 2.7 g/dL (1.6-3.3); Non-African American GFR(CKD) 84.8 (60.0-200.0); Potassium 4.5 mmol/L (3.5-5.5); Total Bilirubin 0.6 mg/dL (0.2-1.2)
== END | disposition home or self-care (01) ==
LOC: LABWHC1 12:30
PROVIDERS: ATTEND Nurse Practitioner Adult Health
DX: E03.9 Hypothyroidism, unspecified (principal); I48.91 Unspecified atrial fibrillation
CPT/HCPCS: 36415; 80053; 84443

== ENCOUNTER 2020-10-10 06:02 | Day surgery (SDC) | payer MEDICARE, BC ==
[2020-10-07 10:20] VITALS: BMI 23.2
[~2020-10-10 06:02] MED LIST changes: -DENOSUMAB 60 MG/ML 1 ML SYRINGE SQ NR; +SODIUM CHLORIDE 0.9% 1,000 ML IV SCH
[2020-10-10] MEDS ORDERED: SODIUM CHLORIDE 0.9% 500 ML 500 ML IV ONE (06:13)
[2020-10-10 06:35] VITALS: RESP 16
[2020-10-10 06:42] LABS: African American GFR (CKD) >90 (>60 ml/min/1.73 sqM); Anion Gap 4 mmol/L; Blood Urea Nitrogen 16 mg/dL (7-17); Carbon Dioxide 27 mmol/L (22-30); Chloride 94 mmol/L (98-107); Glucose 91 mg/dL (74-99); Non-African American GFR(CKD) 86 (>60 ml/min/1.73 sqM); Potassium 4.4 mmol/L (3.5-5.1); Sodium 125 mmol/L (137-145)
[2020-10-10] MEDS: BENZOCAINE SPRAY 1 CAN TOPICAL ONE ×2 (07:00→08:57)
[2020-10-10 07:09] VITALS: TEMP 97
[2020-10-10] MEDS ORDERED: PROPOFOL 10 MG/ML 20 ML VIAL IV ONE (07:15)
[2020-10-10] MEDS ORDERED: fentaNYL (PF) 50 MCG/ML 2 ML AMP ONE (07:15)
[2020-10-10] MEDS ORDERED: ePHEDrine SULFATE/0.9% NACL/PF 50 MG/5 ML SYRINGE IV ONE (07:15)
[2020-10-10] MEDS ORDERED: MIDAZOLAM 2 MG/2 ML VIAL ONE (07:15)
[2020-10-10] MEDS ORDERED: PANTOPRAZOLE 40 MG TABLET PO PRN (07:40)
[2020-10-10] MEDS ORDERED: ALPRAZolam 0.25 MG TAB PO PRN (07:40)
[2020-10-10] MEDS ORDERED: NON FORMULARY DRUG (Linaclotide [Linzess] 290 MCG Capsule) PO PRN (07:40)
[2020-10-10] MEDS ORDERED: SODIUM CHLORIDE 0.9% 1,000 ML IV SCH (07:45)
[2020-10-10] MEDS ORDERED: DENOSUMAB 60 MG/ML 1 ML SYRINGE SQ SCH (07:45)
[2020-10-10] MEDS ORDERED: NON FORMULARY DRUG (Difluprednate [Durezol] 5 ML Drops) RIGHT EYE SCH (07:45)
--- NOTE | 2020-10-10 08:20 | CE ---
CARDIAC ELECTROPHYSIOLOGY REPORT CARDIOVERSION PROCEDURE NOTE: INDICATION: Atrial fibrillation. PROCEDURE: After explaining the procedure to the patient, its risks and the complications, blood pressure, heart rate, O2 saturation were monitored. After obtaining transesophageal echocardiogram, a synchronized biphasic cardioversion using 200 joules, 250 and subsequently 300 joules was successful in restoring normal sinus rhythm. There was no immediate complication. TIMOTHY / EZEQUIELN: [id number] /
[2020-10-10] MEDS ORDERED: [UNRECOGNIZED DRUG - OTHER] PO SCH (09:00)
[2020-10-10] MEDS ORDERED: FUROSEMIDE 20 MG TAB PO SCH (09:00)
[2020-10-10] MEDS ORDERED: VITAMIN D3 PO SCH (09:00)
[2020-10-10] MEDS ORDERED: GABAPENTIN 300 MG CAP PO SCH (09:00)
[2020-10-10] MEDS ORDERED: BENAZEPRIL 10 MG PO SCH (09:00)
[2020-10-10] MEDS ORDERED: MULTIVITAMINS, THERA 1 EACH TAB PO SCH (09:00)
[2020-10-10] MEDS ORDERED: CALCIUM CARBONATE PO SCH (09:00)
[2020-10-10] MEDS ORDERED: LEVOTHYROXINE 100 MCG TAB PO SCH (09:00)
[2020-10-10] MEDS ORDERED: amLODIPine 2.5 MG TAB PO SCH (09:00)
[2020-10-10 09:18] VITALS: PULSE 72
[2020-10-10 09:37] VITALS: BP 107/60
--- NOTE | 2020-10-10 10:39 | ECHOT ---
TRANSESOPHAGEAL ECHOCARDIOGRAM INDICATION: Evaluation of left atrial appendage. PROCEDURE: After explaining the procedure to the patient, its risks and the complications, blood pressure, heart rate, O2 saturation were monitored. The throat was sprayed with Cetacaine. She received sedation per Anesthesia Department. The probe was introduced in the esophagus without difficulties. Images were obtained. Following that, the probe was removed. There was no immediate complication. FINDINGS: Left atrial size is dilated. Left atrial appendage is normal. The right atrial size is dilated. Left ventricular size and systolic function normal. The aortic valve is a bioprosthetic valve with normal opening and mild thickening. Mitral valve revealed mild mitral anulus calcification. Tricuspid valve is normal. Descending thoracic aorta revealed mild atherosclerotic changes of the aorta. No pericardial effusion was noted. Contrast bubble study revealed no evidence of shunting across the interatrial septum. Doppler pulse wave and color Doppler obtained and revealed a moderate mitral with moderate to severe tricuspid regurgitation. There was no evidence of shunting across the interatrial septum. CONCLUSION: 1. Biatrial enlargement. 2. Normal appearance of left atrial appendage. 3. Normal left ventricular size and systolic function. 4. Bioprosthetic aortic valve with normal appearance and function. 5. Moderate mitral with moderate to severe tricuspid regurgitation. 6. No significant pulmonary hypertension. 7. Mild atherosclerotic changes of the descending thoracic aorta. 8. No pericardial effusion. MMODL / IJN: [id number] /
[2020-10-10] MEDS ORDERED: EZETIMIBE PO SCH (21:00)
[2020-10-10] MEDS ORDERED: atenoloL 50 MG TAB PO SCH (21:00)
[2020-10-10] MEDS ORDERED: RIVAROXABAN 20 MG TAB PO SCH (21:00)
[2020-10-10] MEDS ORDERED: SIMVASTATIN PO SCH (21:00)
== END 2020-10-10 09:45 | disposition home or self-care (01) ==
LOC: CATHCVL 06:02
PROVIDERS: ATTEND Internal Medicine Interventional Cardiology
DX: I48.21 Permanent atrial fibrillation (principal); I08.1 Rheumatic disorders of both mitral and tricuspid valves; I70.0 Atherosclerosis of aorta; I25.10 Atherosclerotic heart disease of native coronary artery without angina pectoris; E78.2 Mixed hyperlipidemia; I10 Essential (primary) hypertension; R60.0 Localized edema; E07.9 Disorder of thyroid, unspecified; Z95.2 Presence of prosthetic heart valve; Z79.01 Long term (current) use of anticoagulants; Z79.890 Hormone replacement therapy; Z79.899 Other long term (current) drug therapy; Z79.82 Long term (current) use of aspirin; Z96.659 Presence of unspecified artificial knee joint; Z90.710 Acquired absence of both cervix and uterus; Z97.2 Presence of dental prosthetic device (complete) (partial); Z82.49 Family history of ischemic heart disease and other diseases of the circulatory system
CPT/HCPCS: 93312; 93320; 93325; 92960; 80048; J2250; J3010; J2704

== ENCOUNTER 2020-10-23 21:12 | Emergency (ER) | payer MEDICARE, BC ==
[2020-10-23 21:19] VITALS: TEMP 97.6
--- NOTE | 2020-10-23 21:38 | ED ---
Chest Pain HPI - General Chief Complaint: Chest Pain Stated Complaint: chest discomfort, history of heart attack Time Seen by Provider: 10/23/20 21:33 Source: patient Mode of arrival: wheelchair Limitations: no limitations - History of Present Illness Initial Comments: This patient is a 75-year-old woman who presents to have evaluation of chest pain and dyspnea. Patient has history of previous aortic valve replacement and she also states that she has undergone cardioversion for chronic A. fib about two weeks ago. The patient states that this morning she noticed she was feeling a little short of breath and comparison with her usual. Then a nearly afternoon 6-7 hours ago she noticed discomfort across the upper chest, she states always across from right to left chest.. She denies pain but states that it was just a discomfort. It was somewhat intermittent and is not there presently. No diaphoresis, no nausea or vomiting. Patient does acknowledge some long-standing bilateral leg edema which has not changed since she had last seen her brim presser (Dr. Love). MD Complaint: chest pain Onset/Timin -: hour(s) Onset: during rest Pain Location: left chest, right chest Pain Radiation: none Severity: mild Quality: other (Discomfort) Consistency: intermittent Improves With: nothing Worsens With: nothing Anginal Symptoms: dyspnea Treatments Prior to Arrival: none - Related Data Home Medications Medication Instructions Recorded Confirmed Benazepril [Lotensin] 20 mg PO BID 01/21/14 10/10/20 Difluprednate [Durezol] 1 drop RIGHT EYE MOFR 01/21/14 10/10/20 Esomeprazole Magnesium [NexIUM] 40 mg PO DAILY PRN 01/21/14 10/10/20 Gabapentin [Neurontin] 300 mg PO BID 01/21/14 10/10/20 Levothyroxine Sodium [Synthroid] 100 mcg PO QAM 01/21/14 10/10/20 atenoloL [Tenormin] 50 mg PO HS 01/21/14 10/10/20 Ezetimibe/Simvastatin [Vytorin 1 tab PO HS 05/10/15 10/10/20 10-20 mg Tablet] Calcium Carbonate/Vitamin D3 2 tab PO DAILY 12/30/16 10/10/20 [Calcium 600-Vit D3 800 Tab] Furosemide [Lasix] 50 mg PO QAM 12/30/16 10/10/20 Multivitamins, Thera [Multivitamin 1 tab PO DAILY 12/30/16 10/10/20 (formulary)] Denosumab [Prolia] 60 mg SQ Q180D #0 09/16/17 10/07/20 ALPRAZolam [Xanax] 0.25 mg PO BID PRN 10/07/20 10/10/20 Linaclotide [Linzess] 290 mcg PO DIRECTED PRN 10/07/20 10/10/20 Rivaroxaban [Xarelto] 20 mg PO HS 10/07/20 10/10/20 Previous Rx's Medication Instructions Recorded amLODIPine [Norvasc] 5 mg PO QAM #0 01/12/19 Allergies Allergy/AdvReac Type Severity Reaction Status Date / Time Penicillins Allergy Unknown Swelling Verified 10/23/20 21:18 Review of Systems ROS Statement: Those systems with pertinent positive or pertinent negative responses have been documented in the HPI. ROS Other: All systems not noted in ROS Statement are negative. Constitutional: Denies: fever, chills Respiratory: Reports: as per HPI, dyspnea. Denies: cough, wheezes, hemoptysis Cardiovascular: Reports: as per HPI, chest pain, edema. Denies: palpitations, dyspnea on exertion, orthopnea, syncope Gastrointestinal: Denies: abdominal pain, nausea, vomiting, diarrhea Genitourinary: Denies: dysuria, hematuria Musculoskeletal: Denies: back pain Skin: Denies: rash Neurological: Denies: headache, weakness, numbness EKG Findings - EKG Results: EKG: interpreted by ERMD, normal axis, normal QRS, normal ST/T EKG shows: atrial fibrillation (Rate 79 bpm) Past Medical History Past Medical History: Atrial Fibrillation, Asthma, Coronary Artery Disease (CAD), GERD/Reflux, Hyperlipidemia, Hypertension, Mitral Valve Prolapse (MVP), Neurologic Disorder, Osteoarthritis (OA), Thyroid Disorder Additional Past Medical History / Comment(s): Valvular heart disease, prolapsed mitral valve, seasonal ALLERGIES. Neuropathy. Rheumatic fever as a child, leaky tricuspid valve, osteoporosis History of Any Multi-Drug Resistant Organisms: None Reported Past Surgical History: Bladder Surgery, Cardiac Valve Replacement, Ear Surgery, Heart Catheterization, Hysterectomy, Joint Replacement Additional Past Surgical History / Comment(s): BLADDER SUSPENSION, AORTIC HEART VALVE REPLACEMENT in 2004, bilateral bunionectomies, 4 Left Knee Surgeries (3 replacements) Past Anesthesia/Blood Transfusion Reactions: Motion Sickness Past Psychological History: Anxiety Smoking Status: Never smoker Past Alcohol Use History: None Reported Past Drug Use History: None Reported - Past Family History Brother(s) Family Medical History: Cancer Additional Family Medical History / Comment(s): LEUKEMIA Father Family Medical History: Coronary Artery Disease (CAD) Mother Family Medical History: Coronary Artery Disease (CAD) Son(s) Family Medical History: No Reported History General Exam Limitations: no limitations General appearance: alert, in no apparent distress Head exam: Present: atraumatic, normocephalic Eye exam: Present: normal appearance. Absent: scleral icterus, conjunctival injection ENT exam: Present: normal oropharynx Neck exam: Present: normal inspection, full ROM Respiratory exam: Present: normal lung sounds bilaterally. Absent: respiratory distress, wheezes, rales, rhonchi, stridor Cardiovascular Exam: Present: regular rate, irregular rhythm, systolic murmur. Absent: rubs, gallop GI/Abdominal exam: Present: soft. Absent: distended, tenderness, guarding, rebound, rigid, mass Extremities exam: Present: normal inspection, normal capillary refill. Absent: pedal edema, calf tenderness Back exam: Present: normal inspection. Absent: CVA tenderness (R), CVA tenderness (L) Neurological exam: Present: alert Skin exam: Present: warm, dry, intact, normal color. Absent: rash Course Vital Signs 10/23/20 21:14 Temperature 97.6 F Pulse Rate 66 Respiratory 20 Rate Blood Pressure 155/85 O2 Sat by Pulse 99 Oximetry Chest Pain MDM - MDM On reevaluation, the patient's symptoms have resolved. Reviewed the studies with the patient. As she had contacted Dr. Steinberg, cardiology on-call and had been sent in on his recommendation, she requested that I discuss the findings with him and this was done. I relayed his recommendations and the patient states she is feeling much better and would like to go home and follow in the clinic rather than stay overnight. Disposition Clinical Impression: Chest pain Disposition: HOME SELF-CARE Condition: Fair Instructions (If sedation given, give patient instructions): Chest Pain (ED) Is patient prescribed a controlled substance at d/c from ED?: No Referrals: Alban Nelson MD [Primary Care Provider] - 1-2 days Juan Love MD [STAFF PHYSICIAN] - 1-2 days
[2020-10-23 22:22] LABS: Basophils # (A) 0.1 k/uL (0-0.2); Basophils % (A) 1 %; Eosinophils # (A) 0.2 k/uL (0-0.7); Eosinophils % (A) 4 %; HGB 13.2 gm/dL (11.4-16.0); Lymphocytes # (A) 1.1 k/uL (1.0-4.8); Lymphocytes % (A) 26 %; MCH 29.5 pg (25.0-35.0); MCHC 33.9 g/dL (31.0-37.0); MCV 86.9 fL (80.0-100.0); Monocytes # (A) 0.3 k/uL (0-1.0); Monocytes % (A) 7 %; Neutrophils # (A) 2.6 k/uL (1.3-7.7); Neutrophils % (A) 61 %; Platelet Count 212 k/uL (150-450); RBC 4.49 m/uL (3.80-5.40); RDW 13.5 % (11.5-15.5); WBC 4.2 k/uL (3.8-10.6)
[2020-10-23 22:34] LABS: INR 1.1 (<1.2); Partial Thromboplastin Time 27.8 sec (22.0-30.0); Prothrombin Time 11.3 sec (9.0-12.0)
--- NOTE | 2020-10-23 22:55 | XR ---
EXAMINATION TYPE: XR chest 2V DATE OF EXAM: 10/23/2020 COMPARISON: September 13, 2020 HISTORY: Chest pain TECHNIQUE: 2 views FINDINGS: There is no heart failure nor confluent pneumonic infiltrate. There is probably some minima l subsegmental atelectasis left lung base. Right lung is clear. There are no hilar masses. There are sternal wires. Bony thorax is intact. There are chest leads. IMPRESSION: New minimal subsegmental atelectasis left lung base compared to old exam. No heart failure. Normal he art.
[2020-10-23 23:07] LABS: ALT 21 U/L (4-34); AST 37 U/L (14-36); African American GFR (CKD) >90 (>60 ml/min/1.73 sqM); Albumin 4.6 g/dL (3.5-5.0); Alkaline Phosphatase 78 U/L (38-126); Anion Gap 10 mmol/L; Blood Urea Nitrogen 17 mg/dL (7-17); Calcium 10.5 mg/dL (8.4-10.2); Carbon Dioxide 29 mmol/L (22-30); Chloride 92 mmol/L (98-107); Glucose 99 mg/dL (74-99); Magnesium 2.3 mg/dL (1.6-2.3); Non-African American GFR(CKD) 86 (>60 ml/min/1.73 sqM); Potassium 4.2 mmol/L (3.5-5.1); Sodium 131 mmol/L (137-145); Total Bilirubin 0.6 mg/dL (0.2-1.3); Total Protein 8.2 g/dL (6.3-8.2)
[2020-10-24 00:31] VITALS: BP 132/86; PULSE 80; RESP 18
== END 2020-10-24 00:30 | disposition home or self-care (01) ==
LOC: EC 21:12
DX: R07.89 Other chest pain (principal); E78.5 Hyperlipidemia, unspecified; F41.9 Anxiety disorder, unspecified; I10 Essential (primary) hypertension; I25.10 Atherosclerotic heart disease of native coronary artery without angina pectoris; I25.2 Old myocardial infarction; I48.91 Unspecified atrial fibrillation; J45.909 Unspecified asthma, uncomplicated; K21.9 Gastro-esophageal reflux disease without esophagitis; M19.90 Unspecified osteoarthritis, unspecified site; Z88.0 Allergy status to penicillin
CPT/HCPCS: 36415; 71046; 80053; 83735; 83880; 84484; 85025; 85610; 85730; 93005; 99285

== ENCOUNTER → 2020-10-28 | Outpatient (CLI) | payer MEDICARE, BC ==
[2020-10-28 13:15] LABS: HCT 36.5 % (34.0-46.0); HGB 12.3 gm/dL (11.4-16.0); MCHC 33.7 g/dL (31.0-37.0); MCV 88.9 fL (80.0-100.0); Mean Platelet Volume 7.1; Platelet Count 197 k/uL (150-450); RBC 4.11 m/uL (3.80-5.40); RDW 13.4 % (11.5-15.5)
[2020-10-28 13:57] LABS: African American GFR (CKD) >90 (>60 ml/min/1.73 sqM); Anion Gap 6 mmol/L; Blood Urea Nitrogen 14 mg/dL (7-17); Carbon Dioxide 29 mmol/L (22-30); Chloride 94 mmol/L (98-107); Non-African American GFR(CKD) 84 (>60 ml/min/1.73 sqM); Potassium 4.4 mmol/L (3.5-5.1); Sodium 129 mmol/L (137-145)
== END | disposition home or self-care (01) ==
LOC: LABWHC1 12:40
PROVIDERS: ATTEND Internal Medicine Clinical Cardiac Electrophysiology
DX: Z01.818 Encounter for other preprocedural examination (principal); I48.11 Longstanding persistent atrial fibrillation
CPT/HCPCS: 36415; 80051; 82565; 84520; 85027

== ENCOUNTER 2020-11-07 11:40 | Day surgery (SDC) | payer MEDICARE, BC ==
[2020-11-02 15:33] VITALS: BMI 23.3
[~2020-11-07 11:40] MED LIST changes: +CLINDAMYCIN 900 MG in DEXTROSE 5% IN WATER 50 ML IVPB PRN; +LACTATED RINGERS 1,000 ML IV SCH
[2020-11-07] MEDS ORDERED: SODIUM CHLORIDE 0.9% 1,000 ML IV ONE (12:27)
[2020-11-07] MEDS ORDERED: HEPARIN SODIUM,PORCINE 5,000 UNIT/ML 1 ML VIAL ONE (13:02)
[2020-11-07] MEDS ORDERED: PROPOFOL 10 MG/ML 20 ML VIAL IV ONE (13:02)
[2020-11-07] MEDS ORDERED: HYDROmorphone (PF) 1 MG/ML ONE (13:02)
[2020-11-07] MEDS ORDERED: FUROSEMIDE 10 MG/ML 2 ML VIAL ONE (13:02)
[2020-11-07] MEDS ORDERED: fentaNYL (PF) 50 MCG/ML 2 ML AMP ONE (13:02)
[2020-11-07] MEDS ORDERED: MIDAZOLAM 2 MG/2 ML VIAL ONE (13:02)
[2020-11-07] MEDS ORDERED: SUCCINYLCHOLINE CHLORIDE 100 MG/5 ML SYR IV ONE (13:02)
[2020-11-07] MEDS ORDERED: PROTAMINE SULFATE 10 MG/ML 5 ML VIAL IV ONE (13:02)
[2020-11-07] MEDS ORDERED: PHENYLEPHRINE-0.9% NACL SYG 1,000 MCG/10 ML SYRINGE ONE (13:02)
[2020-11-07] MEDS ORDERED: LIDOCAINE 1% INJ 10MG/ML (20 ML MDV) ONE ×2 (13:02→13:24)
[2020-11-07] MEDS ORDERED: LIDOCAINE 1% INJ 10MG/ML (20 ML MDV) SQ ONE (13:40)
[2020-11-07] MEDS ORDERED: HEPARIN SOD,PORK IN 0.45% NACL 25,000 UNIT in 0.45% NACL 1 250ML.BAG IV ONE ×2 (13:47)
[2020-11-07] MEDS ORDERED: IOPAMIDOL-370 100ML BTL INJ ONE (15:30)
[2020-11-07] MEDS ORDERED: SODIUM CHLORIDE 0.9% 500 ML 500 ML IV ONE (16:00)
[2020-11-07] MEDS ORDERED: ACETAMINOPHEN TAB 325 MG TAB PO PRN (17:20)
[2020-11-07] MEDS ORDERED: HYDROcodone/APAP 5-325MG 1 EACH TAB PO PRN (17:20)
[2020-11-07] MEDS ORDERED: ACETAMINOPHEN IV (For NPO) 1,000 MG in EMPTY BAG 1 BAG IVPB ONE (17:20)
[2020-11-07] MEDS ORDERED: HEPARIN SODIUM (1,000 UNIT/ML) 1,000 UNIT in SODIUM CHLORIDE 0.9% 1,000 ML IRRIGATION ONE (17:21)
--- NOTE | 2020-11-07 17:41 | P.EPPROC ---
- EP Procedure Note Electrophysiology Procedure Note: PROCEDURE A. fib ablation, cryoablation of the pulmonary veins Typical atrial flutter ablation DIAGNOSIS Atrial fibrillation, symptomatic, refractory to therapy RESULT No left atrial appendage mass seen on intracardiac echo Successful A. fib ablation/pulmonary vein isolation of all veins using cryo- ablation Complete entrance block in all 4 veins confirmed No evidence for phrenic nerve injury 3-D mapping as well as entrainment mapping revealed residual typical atrial flutter Esophageal deflection YES , right-sided esophagus Electrical cardioversion with a synchronized shock across the chest NO By atrial enlargement especially significant right atrial enlargement noted PROCEDURE DETAILS Patient was brought to the EP lab in a fasting state. Written informed consent was obtained prior to the procedure. Procedure performed under general anesthesia After initial muscle relaxant use, muscle relaxants were not given thereafter in order to assess phrenic nerve during procedure. Patient prepped and draped as per protocol Full cryo-set up with standard preparation of the cryoablation tools done. Femoral Venous access obtained on the right and left groins Venous and arterial Sheaths placed. Diagnostic catheters for the high right atrium, phrenic nerve stimulation and pacing, His bundle, RV and coronary sinus placed Intracardiac echo catheter placed. Long sheath placed in the right atrium Left and right transseptal catheterization performed under intracardiac echo gu idance. Intravenous heparin with aCT above 300 Later, catheter positioning and balloon positioning in the left atrium, under intracardiac echo guidance Diagnostic EP study with Drug infusion Coronary sinus pacing and recording Baseline measurements AH 95, HV 50 ms QRS 120 ms, QT 430 ms Atrial pacing performed from the high right atrium and the coronary sinus AV node Wenckebach block for 90 ms RV pacing VA Wenckebach block greater than 590 ms Transseptal catheterization performed RA pressure 26/8/18 LA pressure 21/8/16 Transseptal catheterization performed with standard sheath. The cryoablation sheath was then placed with an over the wire exchange without any acute complications. All 4 pulmonary veins were isolated in the following sequence: Left superior followed by left inferior followed by right superior followed by right inferior The cryo-ablation balloon was placed at the os of each vein 1.5 mL of IV dye was injected to confirm an occluded vein Goal during cryoablation was to achieve complete occlusion of the pulmonary vein, achieve -30 degrees C at 30 seconds and achieve -40 degrees C at 60 seconds and a time to effect of less than 60-90 seconds, . If not the balloon was repositioned to obtain this result After completion of Cryoblation with durations from 180-240 seconds, entrance block was confirmed with the Attain circular catheter in a roving fashion around the antrum of the pulmonary veins Phrenic nerve pacing was performed from the SVC, right innominate vein area and diaphragm voltage was monitored. Diaphragmatic contractions were also monitored manually for strength of contraction. Parameter goals for each cryo freeze Complete occlusion of the appropriate vein -30 degrees C by 30 seconds -40 degrees C by 60 seconds Minimum between minus 40-55 degrees C Thaw time greater than 10 seconds Balloon visualized by intracardiac echo The esophagus was intubated. Esophageal Temperature monitoring with a CIRCA catheter formed. Esophageal deflection for hypothermia of the esophagus below 30 degrees C Left superior pulmonary vein Complete isolation, entrance block Left inferior pulmonary vein Complete isolation, entrance block Right superior pulmonary vein, during phrenic nerve pacing Complete isolation, entrance block Right inferior pulmonary vein, during phrenic nerve pacing Complete isolation, entrance block At the end of the procedure the Achieve catheter was once again used to check for entrance block Phrenic nerve stimulation was performed to confirm diaphragmatic stimulation the end of the procedure Cine fluoroscopy was performed at the very end of the procedure to confirm movement of both diaphragms with inspiration and expiration The patient remained in atrial tachycardia at 363 ms, concentric activation A Pentaray catheter was used to mapped the left atrium. Activation mapping was performed Right atrium was then mapped Counterclockwise very tricuspid atrial flutter was noted Entrainment mapping was consistent with cavo tricuspid reentry RF ablation was performed and atrial flutter, was terminated A complete anatomic line of block was made Differential pacing was performed and bidirectional block was confirmed At the end of the procedure the patient was extubated Heparin was reversed Venous sheaths were removed and hemostasis assured PROCEDURES PERFORMED Diagnostic EP study CS pacing and recording Left and right transseptal catheterization 3D mapping Intracardiac echocardiography Pulmonary vein isolation with transseptal and comprehensive EPS, [id number] Linear ablation in the cavo tricuspid isthmus for typical atrial flutter
[2020-11-07 18:19] VITALS: RESP 16
[2020-11-07] MEDS ORDERED: EZETIMIBE 10 MG TAB PO SCH (21:00)
[2020-11-07] MEDS ORDERED: amLODIPine 5 MG TAB PO SCH (21:00)
[2020-11-07] MEDS ORDERED: ATORVASTATIN 10 MG TAB PO SCH (21:00)
[2020-11-07] MEDS: APIXABAN 5 MG TAB PO SCH (21:38)
[2020-11-07] MEDS: GABAPENTIN 300 MG CAP PO SCH (21:38)
[2020-11-08] MEDS ORDERED: LEVOTHYROXINE 100 MCG TAB PO SCH (06:30)
[2020-11-08] MEDS ORDERED: PANTOPRAZOLE 40 MG TABLET PO SCH (07:30)
[2020-11-08] MEDS: GABAPENTIN 300 MG CAP PO SCH (07:59)
[2020-11-08] MEDS: APIXABAN 5 MG TAB PO SCH (07:59)
[2020-11-08] MEDS ORDERED: FUROSEMIDE 40 MG TAB PO SCH (08:00)
[2020-11-08 08:01] VITALS: BP 116/73; PULSE 84; TEMP 98.1
--- NOTE | 2020-11-08 08:56 | P.DS ---
Providers Attending physician: Isidro Duggan Primary care physician: [facility] Course: Patient is resting comfortably in bed. No chest discomfort no dizziness lightheadedness no chest discomfort Vitals are stable Afebrile 98.4F, blood pressure 116/73 mmHg normal respirations normal pulse rate irregular Heart sounds: Systolic murmur left parasternal Lungs are clear no rhonchi no crackles No lower extremity edema Mildly tender groins no hematoma Impression Persistent atrial fibrillation status post pulmonary vein isolation Patient was in atrial flutter thereafter and she underwent successful atrial flutter ablation to sinus rhythm This morning she is in a sinus rhythm with PACs that makes the rhythm look irregular Plan Discharge home later today Continue anticoagulation Hold atenolol Continue all other medications Follow-up with Dr. Love in a week Follow-up with Dr. Fontenot as previously scheduled Plan - Discharge Summary Discharge Rx Participant: No New Discharge Prescriptions: Continue Levothyroxine Sodium [Synthroid] 100 mcg PO QAM Gabapentin [Neurontin] 300 mg PO BID Benazepril [Lotensin] 20 mg PO BID Esomeprazole Magnesium [NexIUM] 40 mg PO DAILY Ezetimibe/Simvastatin [Vytorin 10-20 mg Tablet] 1 tab PO HS Calcium Carbonate/Vitamin D3 [Calcium 600-Vit D3 800 Tab] 2 tab PO DAILY Furosemide [Lasix] 40 mg PO BID Multivitamins, Thera [Multivitamin (formulary)] 1 tab PO DAILY Denosumab [Prolia] 60 mg SQ Q180D #0 Linaclotide [Linzess] 290 mcg PO DIRECTED PRN PRN Reason: Constipation ALPRAZolam [Xanax] 0.25 mg PO BID PRN PRN Reason: Anxiety Apixaban [Eliquis] 5 mg PO BID amLODIPine [Norvasc] 5 mg PO HS Discontinued atenoloL [Tenormin] 50 mg PO HS Discharge Medication List Benazepril [Lotensin] 20 mg PO BID 01/21/14 [History] Esomeprazole Magnesium [NexIUM] 40 mg PO DAILY 01/21/14 [History] Gabapentin [Neurontin] 300 mg PO BID 01/21/14 [History] Levothyroxine Sodium [Synthroid] 100 mcg PO QAM 01/21/14 [History] Ezetimibe/Simvastatin [Vytorin 10-20 mg Tablet] 1 tab PO HS 05/10/15 [History] Calcium Carbonate/Vitamin D3 [Calcium 600-Vit D3 800 Tab] 2 tab PO DAILY 12/30/16 [History] Furosemide [Lasix] 40 mg PO BID 12/30/16 [History] Multivitamins, Thera [Multivitamin (formulary)] 1 tab PO DAILY 12/30/16 [History] Denosumab [Prolia] 60 mg SQ Q180D #0 09/16/17 [History] ALPRAZolam [Xanax] 0.25 mg PO BID PRN 10/07/20 [History] Linaclotide [Linzess] 290 mcg PO DIRECTED PRN 10/07/20 [History] Apixaban [Eliquis] 5 mg PO BID 11/02/20 [History] amLODIPine [Norvasc] 5 mg PO HS 11/02/20 [History] Follow up Appointment(s)/Referral(s): Juan Love MD [STAFF PHYSICIAN] - 1 Week Patient Instructions/Handouts: Electrophysiology Study (DC) Activity/Diet/Wound Care/Special Instructions: Post EP study - Ablation instructions 1. Keep access sites dry for 2 days. 2. No heavy lifting or straining for 2 days. 3. Avoid bending the hips repeatedly for 2 days. 4. You may go up and down stairs slowly Call if the following is noted 1. Bleeding, increasing swelling or pain at the access sites. 2. Increasing chest discomfort, especially upon taking a deep breath. 3. Increasing shortness of breath, at rest or with exertion. 4. Undue cough / phlegm 5. Difficulty or pain while swallowing. 6. Pain or change in color in the extremities. 7. Fever, chills, rigors. 8. Increasing headache or neurologic symptoms. 9. Dizziness, fainting, palpitations Discontinue atenolol Continue all other medications Continue ELIQUIS Discharge Disposition: HOME SELF-CARE
[2020-11-08] MEDS ORDERED: lisinopriL 20 MG TAB PO SCH (09:00)
== END 2020-11-08 14:20 | disposition home or self-care (01) ==
LOC: CATHEP 11:40 → 6NMEDSUR 17:00 → CATHEP 11-08 14:20
PROVIDERS: ATTEND Internal Medicine Clinical Cardiac Electrophysiology
DX: I48.19 Other persistent atrial fibrillation (principal); I48.3 Typical atrial flutter; I08.1 Rheumatic disorders of both mitral and tricuspid valves; E78.5 Hyperlipidemia, unspecified; I10 Essential (primary) hypertension; Z95.2 Presence of prosthetic heart valve; Z82.49 Family history of ischemic heart disease and other diseases of the circulatory system; Z79.01 Long term (current) use of anticoagulants; Z79.890 Hormone replacement therapy; Z79.899 Other long term (current) drug therapy; Z88.0 Allergy status to penicillin
CPT/HCPCS: 93662; 93613; 93656; 93657; 85347; 87635; C1769 ×4; C1894 ×2; C1730 ×2; C1731; C1759; C1893; C1733; C1766; C1732; J2250; J2720; J1644 ×3; J1940; J2001; J3010; J1170; J0131; J2370; J0330; J2704; Q9967

== ENCOUNTER → 2021-01-11 | Outpatient (CLI) | payer MEDICARE, BC ==
[~2021-01-11] MED LIST changes: -CLINDAMYCIN 900 MG in DEXTROSE 5% IN WATER 50 ML IVPB PRN; +DENOSUMAB 60 MG/ML 1 ML SYRINGE SQ ONE; -LACTATED RINGERS 1,000 ML IV SCH; -SODIUM CHLORIDE 0.9% 1,000 ML IV SCH
[2021-01-11 11:18] VITALS: BP 124/76; PULSE 97; RESP 16; TEMP 98.2
== END ==
LOC: PROCWHC3 11:01
PROVIDERS: ATTEND Internal Medicine Geriatric Medicine
DX: M81.0 Age-related osteoporosis without current pathological fracture (principal); Z88.0 Allergy status to penicillin
CPT/HCPCS: 96372; J0897

== ENCOUNTER → 2021-07-14 | Outpatient (CLI) | payer MEDICARE, BC ==
[~2021-07-14] MED LIST changes: +DENOSUMAB 60 MG/ML 1 ML SYRINGE SQ NR; -DENOSUMAB 60 MG/ML 1 ML SYRINGE SQ ONE
[2021-07-14 11:13] VITALS: BP 143/83; PULSE 78; RESP 16; TEMP 97.8
== END ==
LOC: PROCWHC3 10:52
PROVIDERS: ATTEND Internal Medicine Geriatric Medicine
DX: M81.0 Age-related osteoporosis without current pathological fracture (principal); Z88.0 Allergy status to penicillin
CPT/HCPCS: 96372; J0897

== ENCOUNTER → 2021-09-04 | Outpatient (CLI) | payer MEDICARE, BC ==
--- NOTE | 2021-09-04 15:46 | BD ---
EXAMINATION TYPE: Axial Bone Density DATE OF EXAM: 09/04/2021 COMPARISON: NONE CLINICAL HISTORY: Height: 5 FT 3 1/4 IN Weight: 138 FRAX RISK QUESTIONS: Alcohol (3 or more units per day): NO Family History (Parent hip fracture): NO Glucocorticoids (More than 3mos): NO (Ex: prednisone, prednisolone, methylprednisolone, dexamethasone, and hydrocortisone). History of Fracture in Adulthood: YES Secondary Osteoporosis: 1. Type 1 Diabetes: NO 2. Hyperthyroidism: NO 3. Menopause before 45: NO 4. Malnutrition: NO 5. Chronic liver disease: NO Rheumatoid Arthritis: YES Current Tobacco Use: NO RISK FACTORS HISTORY OF: Surgery to Spine/Hip(right/left)/Wrist (right/left): NO Family History of Osteoporosis: UNSURE Active: YES Diet low in dairy products/other sources of calcium: NO Postmenopausal woman: YES Take estrogen and/or progesterone medications: TOOK HRT FOR MANY YEARS NO LONGER TAKES Lost more than 2 inches in height since high school: YES Frequent falls: NO Poor Health: GOOD Hyperparathyroidism: NO Adrenal Insufficiency: NO MEDICATIONS: Thyroid Medications: YES Which medication: SYNTHROID How Long: OVER 18 YEARS Additional Medications: Additional History: SYNTHROID, BENAZEPRIL, GABAPENTIN, AMLODIPINE, VYTORIN, FUROSEMIDE, ELIQUIS,DUREZ OL, LINZ ESS, PROLIA SHOT, ATENOLOL, CITALOPRAM, CLONAZEPAM EXAM MEASUREMENTS: Bone mineral densitometry was performed using the [employer] System. Bone mineral density as measured about the Lumbar spine is: ----- L1-L4(G/cm2): 0.976 T Score Values are as follows: ----- L2: -3.0 ----- L3: -1.2 ----- L4: 0.1 ----- L1-L4: -1.7 Bone mineral density has: DECREASED -14.4 % since study of: 2019 Bone mineral density about the R hip (g/cm2): 0.753 Bone mineral density about the L hip (g/cm2): 0.807 T Score values are as follows: -----R Neck: -2.0 -----L Neck: -1.7 -----R Total: -2.2 -----L Total: -2.0 Bone mineral density has: INCREASED 0.8 % since study of: 2019 IMPRESSION: Osteopenia (T Score between -2.5 and -1). There is slightly increased risk of fracture and the patient may be considered for treatment. Re-Screen 2-5 years. NOTE: T-SCORE=SD OF THE YOUNG ADULT MEAN.
== END | disposition home or self-care (01) ==
LOC: RADBDWWP 10:42
PROVIDERS: ATTEND Obstetrics & Gynecology
DX: M85.89 Other specified disorders of bone density and structure, multiple sites (principal)
CPT/HCPCS: 77080

== ENCOUNTER → 2021-12-20 | Outpatient (CLI) | payer MEDICARE, BC ==
[2021-12-20 22:26] LABS: HCT 35.9 % (37.2-46.3); HGB 11.4 g/dL (12.0-15.0); MCH 28.2 pg (27.0-32.0); MCHC 31.8 g/dL (32.0-37.0); MCV 88.9 fL (80.0-97.0); Mean Platelet Volume 10.3 fL (9.5-12.2); NRBC Per 100 WBC 0 /100 WBCS (0.0-0.0); Platelet Count 191 X 10*3/uL (140-440); RBC 4.04 X 10*6/uL (4.10-5.20); RDW 14.1 % (11.5-14.5); WBC 5.49 X 10*3/uL (4.50-10.00)
[2021-12-20 22:56] LABS: African American GFR (CKD) 86.3 (60.0-200.0); Albumin 4.1 g/dL (3.8-4.9); Albumin/Globulin Ratio 1.45 (1.60-3.17); Anion Gap 9.2 mmol/L (10.00-18.00); BUN/Creat Ratio 15.87 Ratio (12.00-20.00); Blood Urea Nitrogen 12.3 mg/dL (9.0-27.0); Calcium 9.6 mg/dL (8.7-10.3); Carbon Dioxide 27.6 mmol/L (20.0-27.5); Globulin 2.8 g/dL (1.6-3.3); Non-African American GFR(CKD) 74.4 (60.0-200.0); Potassium 4.2 mmol/L (3.5-5.5); T4, Free (Free Thyroxine) 1.51 ng/dL (0.800-1.800); Total Bilirubin 0.5 mg/dL (0.30-1.20); Total Protein 6.9 g/dL (6.2-8.2)
== END | disposition home or self-care (01) ==
LOC: LABWHC1 14:34
PROVIDERS: ATTEND Nurse Practitioner Adult Health
DX: I48.11 Longstanding persistent atrial fibrillation (principal); E03.9 Hypothyroidism, unspecified; R06.02 Shortness of breath; R60.0 Localized edema
CPT/HCPCS: 36415; 80053; 83880; 84439; 84443; 85027

== ENCOUNTER → 2022-01-16 | Outpatient (CLI) | payer MEDICARE, BC ==
[~2022-01-16] MED LIST changes: -DENOSUMAB 60 MG/ML 1 ML SYRINGE SQ NR; +DENOSUMAB 60 MG/ML 1 ML SYRINGE SQ ONE
[2022-01-16 11:17] VITALS: BP 105/67; PULSE 78; RESP 16; TEMP 98.3
== END ==
LOC: PROCWHC3 10:58
PROVIDERS: ATTEND Internal Medicine Geriatric Medicine
DX: M81.0 Age-related osteoporosis without current pathological fracture (principal); Z88.0 Allergy status to penicillin
CPT/HCPCS: 96372; J0897

== ENCOUNTER → 2022-01-16 | Outpatient (CLI) | payer MEDICARE, BC ==
[2022-01-16 23:29] LABS: African American GFR (CKD) 82.3 (60.0-200.0); Anion Gap 10.3 mmol/L (10.00-18.00); BUN/Creat Ratio 17.74 Ratio (12.00-20.00); Blood Urea Nitrogen 14.3 mg/dL (9.0-27.0); Calcium 9.5 mg/dL (8.7-10.3); Potassium 3.9 mmol/L (3.5-5.5)
== END | disposition home or self-care (01) ==
LOC: LABWHC1 14:50
PROVIDERS: ATTEND Nurse Practitioner Adult Health
DX: I10 Essential (primary) hypertension (principal)
CPT/HCPCS: 36415; 80048

== ENCOUNTER → 2022-07-11 | Outpatient (CLI) | payer MEDICARE, BC ==
[2022-07-11 19:43] LABS: African American GFR (CKD) 82.4 (60.0-200.0); Albumin 4.1 g/dL (3.8-4.9); Albumin/Globulin Ratio 1.41 (1.60-3.17); Anion Gap 7.8 mmol/L (10.00-18.00); BUN/Creat Ratio 19.13 Ratio (12.00-20.00); Blood Urea Nitrogen 15.3 mg/dL (9.0-27.0); Calcium 9.7 mg/dL (8.7-10.3); Carbon Dioxide 28.2 mmol/L (20.0-27.5); Globulin 2.9 g/dL (1.6-3.3); Non-African American GFR(CKD) 71.1 (60.0-200.0); Potassium 4.2 mmol/L (3.5-5.5); Total Bilirubin 0.4 mg/dL (0.30-1.20)
== END | disposition home or self-care (01) ==
LOC: LABWHC1 12:58
PROVIDERS: ATTEND Internal Medicine Interventional Cardiology
DX: I48.21 Permanent atrial fibrillation (principal)
CPT/HCPCS: 36415; 80053

== ENCOUNTER → 2022-07-23 | Outpatient (CLI) | payer MEDICARE, BC ==
--- NOTE | 2022-07-24 09:01 | MM ---
Reason for Exam: Screening (asymptomatic). Last screening mammogram was performed 12 month(s) ago. Patient History: Menarche at age 12. First Full-Term at age 20. Left ovary removed at age 48. Right ovary removed at age 48. Hysterectomy at age 48. Postmenopausal. Currently using Estrogen, beginning at age 48 for 17 years. 1993, Benign Excisional Biopsy on the right side. 1993, Benign Excisional Biopsy on the left side. Mother had ovarian cancer. Risk Values: Mary Grace 5 year model risk: 2.3%. NCI Lifetime model risk: 4.5%. Prior Study Comparison: 06/25/2019 Bilateral Screening Mammogram, [facility]. 06/27/2020 Bilateral Screening Mammogram, [facility]. 07/17/2021 Bilateral Screening Mammogram, [facility]. Tissue Density: The breast tissue is heterogeneously dense. This may lower the sensitivity of mammography. Findings: Analyzed By CAD. There is no suspicious group of microcalcifications or new suspicious mass in either breast. Benign-appearing dystrophic calcifications within both breasts. Chronic nodularity within both breasts. Overall Assessment: Benign, BI-RAD 2 Management: Screening Mammogram of both breasts in 1 year. A clinical breast exam by your physician is recommended on an annual basis and results should be correlated with mammographic findings. Electronically signed and approved by: Ritesh Maldonado D.O.
== END | disposition home or self-care (01) ==
LOC: RADMAMWWP 10:29
PROVIDERS: ATTEND Obstetrics & Gynecology
DX: Z12.31 Encounter for screening mammogram for malignant neoplasm of breast (principal); Z78.0 Asymptomatic menopausal state
CPT/HCPCS: 77063; 77067

== ENCOUNTER → 2022-07-23 | Outpatient (CLI) | payer MEDICARE, BC ==
[~2022-07-23] MED LIST changes: +DENOSUMAB 60 MG/ML 1 ML SYRINGE SQ NR; -DENOSUMAB 60 MG/ML 1 ML SYRINGE SQ ONE
[2022-07-23 11:10] VITALS: BP 106/68; PULSE 65; RESP 16; TEMP 97.4
== END ==
LOC: PROCWHC3 10:58
PROVIDERS: ATTEND Internal Medicine Geriatric Medicine
DX: M81.0 Age-related osteoporosis without current pathological fracture (principal); Z88.0 Allergy status to penicillin
CPT/HCPCS: 96372; J0897

== ENCOUNTER → 2022-11-16 | Outpatient (CLI) | payer MEDICARE, BC ==
[2022-11-16 20:41] LABS: Basophils # (A) 0.05 X 10*3/uL (0.00-0.10); Basophils % (A) 1.1 %; Eosinophils # (A) 0.06 X 10*3/uL (0.04-0.35); Eosinophils % (A) 1.3 %; HCT 35.7 % (37.2-46.3); HGB 12.2 g/dL (12.0-15.0); Immature Grans, Automated 0.4 %; Lymphocytes # (A) 0.95 X 10*3/uL (0.90-5.00); Lymphocytes % (A) 20.2 %; MCH 32.9 pg (27.0-32.0); MCHC 34.2 g/dL (32.0-37.0); MCV 96.2 fL (80.0-97.0); Mean Platelet Volume 9.9 fL (9.5-12.2); Monocytes # (A) 0.42 X 10*3/uL (0.20-1.00); Monocytes % (A) 8.9 %; NRBC Per 100 WBC 0 /100 WBCS (0.0-0.0); Neutrophils # (A) 3.21 X 10*3/uL (1.80-7.70); Neutrophils % (A) 68.1 %; Platelet Count 193 X 10*3/uL (140-440); RBC 3.71 X 10*6/uL (4.10-5.20); RDW 11.9 % (11.5-14.5); WBC 4.71 X 10*3/uL (4.50-10.00)
== END | disposition home or self-care (01) ==
LOC: LABWHC1 12:17
PROVIDERS: ATTEND Nurse Practitioner Family
DX: K62.5 Hemorrhage of anus and rectum (principal)
CPT/HCPCS: 36415; 85025

== ENCOUNTER → 2023-05-07 | Outpatient (CLI) | payer MEDICARE, BC ==
[2023-05-07 14:39] VITALS: BP 111/63; PULSE 76; RESP 16; TEMP 97.7
== END ==
LOC: PROCWHC3 14:03
PROVIDERS: ATTEND Internal Medicine Geriatric Medicine
DX: M81.0 Age-related osteoporosis without current pathological fracture (principal)
CPT/HCPCS: 96372; J0897

== ENCOUNTER → 2023-07-29 | Outpatient (CLI) | payer MEDICARE, BC ==
--- NOTE | 2023-07-30 10:46 | MM ---
Reason for Exam: Screening (asymptomatic). Last screening mammogram was performed 12 month(s) ago. Patient History: Menarche at age 12. First Full-Term at age 20. Left ovary removed at age 48. Right ovary removed at age 48. Hysterectomy at age 48. Postmenopausal. Currently using Estrogen, beginning at age 48 for 17 years. 1993, Benign Excisional Biopsy on the right side. 1993, Benign Excisional Biopsy on the left side. Mother had other cancer. Risk Values: Mary Grace 5 year model risk: 2.3%. NCI Lifetime model risk: 4.1%. Prior Study Comparison: 06/27/2020 Bilateral Screening Mammogram, [facility]. 07/17/2021 Bilateral Screening Mammogram, [facility]. 07/23/2022 Bilateral MG 3D screening mammo w/cad, [facility]. Tissue Density: The breast tissue is heterogeneously dense. This may lower the sensitivity of mammography. Findings: Analyzed By CAD. Asymmetry right breast CC view 3.3 cm the nipple measuring 8 mm, middle depth. Left breast: There is no suspicious group of microcalcifications or new suspicious mass. Benign-appearing calcifications bilaterally. Overall Assessment: Incomplete: need additional imaging evaluation, BI-RAD 0 Management: Diagnostic Mammogram of the right breast. [facility] will attempt to contact patient to return for supplemental views and ultrasound if indicated. Patient should continue monthly self-breast exams. A clinical breast exam by your physician is recommended on an annual basis. This exam should not preclude additional follow-up of suspicious palpable abnormalities. Note on Mary Grace scores and lifetime risk: 1. A Mary Grace score greater than 3% is considered moderate risk. If this is the case, consider specialist referral to assess eligibility for a risk reducing agent. 2. If overall lifetime risk for the development of breast cancer is 20% or higher, the patient may qualify for future screening with alternating mammogram and breast MRI. Electronically signed and approved by: Maurice Carter DO
== END | disposition home or self-care (01) ==
LOC: RADMAMWWP 14:26
PROVIDERS: ATTEND Obstetrics & Gynecology
DX: Z12.31 Encounter for screening mammogram for malignant neoplasm of breast (principal); Z78.0 Asymptomatic menopausal state
CPT/HCPCS: 77063; 77067

== ENCOUNTER → 2023-08-01 | Outpatient (CLI) | payer MEDICARE, BC ==
--- NOTE | 2023-08-01 15:00 | MM ---
Reason for Exam: Additional evaluation requested from abnormal screening. Last screening mammogram was performed less than 1 month ago. Patient History: Menarche at age 12. First Full-Term at age 20. Left ovary removed at age 48. Right ovary removed at age 48. Hysterectomy at age 48. Postmenopausal. Currently using Estrogen, beginning at age 48 for 17 years. 1993, Benign Excisional Biopsy on the right side. 1993, Benign Excisional Biopsy on the left side. Mother had other cancer. Risk Values: Mary Grace 5 year model risk: 2.3%. NCI Lifetime model risk: 4.1%. Tissue Density: Right: The breast tissue is heterogeneously dense. This may lower the sensitivity of mammography. Findings: Analyzed By CAD. The questioned area of central inner asymmetric density on the CC view middle depth does not clearly persist on the 3-D view. Given the appearance on the screening exam, progression or six-month follow-up is recommended. Overall Assessment: Probably benign, BI-RAD 3 Management: Diagnostic Mammogram of the right breast in 6 months. Results were given to the patient verbally at the time of exam. Patient should continue monthly self-breast exams. A clinical breast exam by your physician is recommended on an annual basis. This exam should not preclude additional follow-up of suspicious palpable abnormalities. Note on Mary Grace scores and lifetime risk: 1. A Mary Grace score greater than 3% is considered moderate risk. If this is the case, consider specialist referral to assess eligibility for a risk reducing agent. 2. If overall lifetime risk for the development of breast cancer is 20% or higher, the patient may qualify for future screening with alternating mammogram and breast MRI. Electronically signed and approved by: Annita Armenta M.D. Radiologist
== END | disposition home or self-care (01) ==
LOC: RADMAMWWP 14:04
PROVIDERS: ATTEND Obstetrics & Gynecology
DX: R92.331 Mammographic heterogeneous density, right breast (principal); Z78.0 Asymptomatic menopausal state; Z80.3 Family history of malignant neoplasm of breast
CPT/HCPCS: 77065; G0279; 77061

== ENCOUNTER → 2023-11-07 | Outpatient (CLI) | payer MEDICARE, BC ==
[2023-11-07] MEDS: DENOSUMAB 60 MG/ML 1 ML SYRINGE SQ NR (13:25)
== END ==
LOC: PROCWHC3 12:59
PROVIDERS: ATTEND Internal Medicine Geriatric Medicine
DX: M81.0 Age-related osteoporosis without current pathological fracture (principal)
CPT/HCPCS: 96372; J0897

== ENCOUNTER 2024-01-08 21:47 | Observation (INO) | payer MEDICARE, BC ==
[2024-01-08 21:53] VITALS: TEMP 98
[2024-01-08] MEDS: ASPIRIN 81 MG PO STA (22:19)
[2024-01-08] MEDS: NITROGLYCERIN SL TABS 0.4 MG TAB SUBLINGUAL STA (22:20)
--- NOTE | 2024-01-08 22:22 | ED ---
General Adult HPI - General Chief complaint: Chest Pain Stated complaint: Chest Pain, Shoulder Pain Time Seen by Provider: 01/08/24 22:10 Source: patient, RN notes reviewed, old records reviewed Mode of arrival: ambulatory Limitations: no limitations - History of Present Illness Initial comments: Patient is a 78-year-old female presents emergency department complaining of chest pain. Patient has a cardiac history consisting of hypertension, multiple valve surgeries. No history of cardiac stents per the patient. Also has a history of atrial fibrillation. Patient does take Eliquis. Presents for further evaluation at this time. States she is having chest pain throughout the day today. Initially was on the left side of her chest with radiation to the left arm and shoulder. States she currently has no chest pain but some mild left arm and shoulder discomfort. Not significantly worsened with movement. No shortness of breath. No fevers, chills, cough. No nausea or vomiting. No diaphoresis. No abdominal pain. Presents for further evaluation at this time. States a few hours prior to arrival, pain overall got worse but currently is improved just not back to her normal baseline. - Related Data Home Medications Medication Instructions Recorded Confirmed Benazepril [Lotensin] 20 mg PO BID 01/21/14 11/07/23 Esomeprazole Magnesium [NexIUM] 40 mg PO DAILY 01/21/14 11/07/23 Gabapentin [Neurontin] 300 mg PO BID 01/21/14 11/07/23 Levothyroxine Sodium [Synthroid] 100 mcg PO QAM 01/21/14 11/07/23 Ezetimibe/Simvastatin [Vytorin 1 tab PO HS 05/10/15 11/07/23 10-20 mg Tablet] Calcium Carbonate/Vitamin D3 2 tab PO DAILY 12/30/16 11/07/23 [Calcium 600-Vit D3 800 Tab] Multivitamins, Thera [Multivitamin 1 tab PO DAILY 12/30/16 11/07/23 (formulary)] Denosumab [Prolia] 60 mg SQ Q180D #0 09/16/17 11/07/23 Linaclotide [Linzess] 290 mcg PO DIRECTED PRN 10/07/20 11/07/23 Apixaban [Eliquis] 5 mg PO BID 11/02/20 11/07/23 amLODIPine [Norvasc] 5 mg PO BID 11/02/20 11/07/23 Citalopram Hydrobromide 1 tab PO DAILY 01/16/22 11/07/23 [Citalopram HBr] Ferrous Sulfate [Iron] 1 tab PO DAILY 01/16/22 11/07/23 Bumetanide [BUMEX] 1 tab PO BID 05/07/23 11/07/23 Allergies Allergy/AdvReac Type Severity Reaction Status Date / Time Penicillins Allergy Unknown Swelling Verified 11/07/23 13:24 Review of Systems ROS Statement: Those systems with pertinent positive or pertinent negative responses have been documented in the HPI. Review of Systems: CONST: Denies fever EYES: Denies blurry vision ENT: Denies nasal congestion C/V: Denies current chest pain but does endorse some left shoulder pain. RESP: Denies shortness of breath GI: Denies abdominal pain : Denies dysuria SKIN: Denies rash. MSK: Denies joint pain. NEURO: Denies headache ROS Other: All systems not noted in ROS Statement are negative. Past Medical History Past Medical History: Atrial Fibrillation, Coronary Artery Disease (CAD), GERD/Reflux, Hyperlipidemia, Hypertension, Mitral Valve Prolapse (MVP), Osteoarthritis (OA), Thyroid Disorder Additional Past Medical History / Comment(s): NEUROPATHY. SEE DR CHAVES'S H&P History of Any Multi-Drug Resistant Organisms: None Reported Past Surgical History: Bladder Surgery, Cardiac Valve Replacement, Ear Surgery, Heart Catheterization, Hysterectomy, Joint Replacement Additional Past Surgical History / Comment(s): BLADDER SUSPENSION, AORTIC HEART VALVE REPLACEMENT in 2004, bilateral bunionectomies, 4 Left Knee Surgeries ([address] CHAVES'S H&P Past Anesthesia/Blood Transfusion Reactions: Motion Sickness Past Psychological History: Anxiety Smoking Status: Never smoker - Past Family History Brother(s) Family Medical History: Cancer Additional Family Medical History / Comment(s): LEUKEMIA Father Family Medical History: Coronary Artery Disease (CAD) Mother Family Medical History: Coronary Artery Disease (CAD) Son(s) Family Medical History: No Reported History General Exam - General Exam Comments Initial Comments: General: Appears in no acute distress. HEAD: Normal with no signs of head trauma. EYES: PERRLA, EOMI, conjunctiva normal, no discharge. ENT: Hearing grossly intact, normal oropharynx. RESPIRATORY: Clear breath sounds bilaterally. No wheezes, rales, or rhonchi. C/V: Regular rate and rhythm. S1 and S2 auscultated, no significant edema, peripheral pulses 2+ and intact throughout. Chest pain is not reproducible on palpation. ABD: Abd is soft, nontender, nondistended EXT: Normal range of motion, no obvious deformity no tenderness palpation of the left shoulder or arm. No tenderness to palpation of the chest wall. SKIN: No rashes or lesions observed on exposed skin. NEURO: Alert and oriented x 4. Limitations: no limitations Course Vital Signs 01/08/24 01/08/24 01/08/24 21:49 22:03 23:00 Temperature 98 F Pulse Rate 65 61 Pulse Rate [ 91 Septic Tank Cleaner ] Respiratory 18 18 Rate Blood Pressure 150/88 129/87 O2 Sat by Pulse 99 Oximetry 01/08/24 01/08/24 01/09/24 23:21 23:55 00:59 Temperature Pulse Rate 60 58 L 59 L Pulse Rate [ Septic Tank Cleaner ] Respiratory 18 17 16 Rate Blood Pressure 135/79 135/79 136/74 O2 Sat by Pulse 98 97 97 Oximetry Medical Decision Making - Medical Decision Making Was pt. sent in by a medical professional or institution (, PA, BINGO USHER, urgent care, hospital, or skilled nursing...) When possible be specific @ -No Did you speak to anyone other than the patient for history (EMS, parent, family, police, friend...)? What history was obtained from this source @ -No Did you review nursing and triage notes (agree or disagree)? Why? @ -Yes and I agree with them. Were old charts reviewed (outside hosp., previous admission, EMS record, old EKG, old radiological studies, urgent care reports/EKG's, skilled nursing records)? Report findings @ - Old charts reviewed including EKG from 2020. There are some EKG changes currently which shows right bundle branch block but chronic T wave inversion in lead V2. Differential Diagnosis (chest pain, altered mental status, abdominal pain women, abdominal pain men, vaginal bleeding, weakness, fever, dyspnea, syncope, headache, dizziness, GI bleed, back pain, seizure, CVA, palpatations, mental health, musculoskeletal)? @ -Differential Chest Pain: Stable Angina, Unstable Angina, STEMI, NSTEMI Aortic Dissection, Pneumothorax, Musculoskeletal, Esophageal Spasm GERD, Cholecystitis, Pancreatitis, Zoster, this is not meant to be an all-inclusive list. EKG interpreted by me (3pts min.). @ -As above X-rays interpreted by me (1pt min.). @ -Chest x-ray reveals no obvious acute cardiopulmonary process. CT interpreted by me (1pt min.). @ -None done U/S interpreted by me (1pt. min.). @ -None done What testing was considered but not performed or refused? (CT, X-rays, U/S, labs)? Why? @ -None What meds were considered but not given or refused? Why? @ -None Did you discuss the management of the patient with other professionals (professionals i.e. , PA, BINGO USHER, lab, RT, psych nurse, social insurance administrator, mine safety engineer, teacher, network security officer, outpatient case manager)? Give summary @ - I spoke with the admitting physician, Dr. Nelson who accepted the admission. Was smoking cessation discussed for >3mins.? @ -No Was critical care preformed (if so, how long)? @ -No Were there social determinants of health that impacted care today? How? (Homelessness, low income, unemployed, alcoholism, drug addiction, transportation, low edu. Level, literacy, decrease access to med. care, prison, rehab)? @ -No Was there de-escalation of care discussed even if they declined (Discuss DNR or withdrawal of care, Hospice)? DNR status @ -No What co-morbidities impacted this encounter? (DM, HTN, Smoking, COPD, CAD, Cancer, CVA, ARF, Chemo, Hep., AIDS, mental health diagnosis, sleep apnea, morbid obesity)? @ -Multiple cardiac valvular surgeries. Was patient admitted / discharged? Hospital course, mention meds given and route, prescriptions, significant lab abnormalities, going to OR and other pertinent info. @ -Patient presents emergency department with chest pain throughout the day today. Currently has no chest pain just left arm pain. Did have radiation of the left shoulder earlier today. Pain does not seem reproducible. Due to the patient's age and cardiac history we will obtain cardiac evaluation. She was in agreement this plan. Vital signs currently within acceptable limits. She will be given 324 mg of aspirin as well as nitroglycerin tablets to see if it helps with the pain. She was in agreement this plan. EKG shows right bundle branch block but no signs of obvious acute ischemia. Chronic T wave inversion in V2.Second EKG shows no dynamic changes. Chest x-ray shows no obvious acute process. Laboratory studies relatively unremarkable. Troponin undetectable. On reevaluation, pain is improved. Patient's heart score is moderate at 4-5. I did recommend admission to observation telemetry. Echo will be ordered. She was in agreement this plan. Cardiology consulted. Will trend the troponin. I spoke with the admitting physician, Dr. Nelson who accepted the admission. Undiagnosed new problem with uncertain prognosis? @ -No Drug Therapy requiring intensive monitoring for toxicity (Heparin, Nitro, Insulin, Cardizem)? @ -No Were any procedures done? @ -No Diagnosis/symptom? @ -Chest pain Acute, or Chronic, or Acute on Chronic? @ -Acute Uncomplicated (without systemic symptoms) or Complicated (systemic symptoms)? @ -Complicated Side effects of treatment? @ -None Exacerbation, Progression, or Severe Exacerbation] @ -No Poses a threat to life or bodily function? @ -Possible yes, over concern for ACS. - Lab Data Result diagrams: 01/08/24 22:18 01/08/24 22:18 Lab Results 01/08/24 01/08/24 01/08/24 Range/Units 22:18 22:18 22:18 WBC 4.2 (3.8-10.6) k/uL RBC 4.30 (3.80-5.40) m/uL Hgb 13.1 (11.4-16.0) gm/dL Hct 40.9 (34.0-46.0) % MCV 95.2 (80.0-100.0) fL MCH 30.4 (25.0-35.0) pg MCHC 32.0 (31.0-37.0) g/dL RDW 12.9 (11.5-15.5) % Plt Count 187 (150-450) k/uL MPV 7.7 Neutrophils % 60 % Lymphocytes % 28 % Monocytes % 7 % Eosinophils % 3 % Basophils % 1 % Neutrophils # 2.5 (1.3-7.7) k/uL Lymphocytes # 1.2 (1.0-4.8) k/uL Monocytes # 0.3 (0-1.0) k/uL Eosinophils # 0.1 (0-0.7) k/uL Basophils # 0.0 (0-0.2) k/uL PT 10.7 (10.0-12.5) sec INR 1.0 (<1.2) APTT 30.0 (22.0-30.0) sec Sodium 131 L (137-145) mmol/L Potassium 3.8 (3.5-5.1) mmol/L Chloride 96 L (98-107) mmol/L Carbon Dioxide 32 H (22-30) mmol/L Anion Gap 3 mmol/L BUN 14 (7-17) mg/dL Creatinine 0.60 (0.52-1.04) mg/dL Est GFR (CKD-EPI)AfAm >90 (>60 ml/min/1.73 sqM) Est GFR (CKD-EPI)NonAf 88 (>60 ml/min/1.73 sqM) Glucose 101 H (74-99) mg/dL Calcium 10.0 (8.4-10.2) mg/dL Magnesium 2.1 (1.6-2.3) mg/dL Total Bilirubin 0.6 (0.2-1.3) mg/dL AST 35 (14-36) U/L ALT 22 (4-34) U/L Alkaline Phosphatase 71 (38-126) U/L Troponin I (0.000-0.034) ng/mL Total Protein 8.1 (6.3-8.2) g/dL Albumin 4.5 (3.5-5.0) g/dL Lipase 265 (23-300) U/L 01/07/ Range/Units 22:18 WBC (3.8-10.6) k/uL RBC (3.80-5.40) m/uL Hgb (11.4-16.0) gm/dL Hct (34.0-46.0) % MCV (80.0-100.0) fL MCH (25.0-35.0) pg MCHC (31.0-37.0) g/dL RDW (11.5-15.5) % Plt Count (150-450) k/uL MPV Neutrophils % % Lymphocytes % % Monocytes % % Eosinophils % % Basophils % % Neutrophils # (1.3-7.7) k/uL Lymphocytes # (1.0-4.8) k/uL Monocytes # (0-1.0) k/uL Eosinophils # (0-0.7) k/uL Basophils # (0-0.2) k/uL PT (10.0-12.5) sec INR (<1.2) APTT (22.0-30.0) sec Sodium (137-145) mmol/L Potassium (3.5-5.1) mmol/L Chloride (98-107) mmol/L Carbon Dioxide (22-30) mmol/L Anion Gap mmol/L BUN (7-17) mg/dL Creatinine (0.52-1.04) mg/dL Est GFR (CKD-EPI)AfAm (>60 ml/min/1.73 sqM) Est GFR (CKD-EPI)NonAf (>60 ml/min/1.73 sqM) Glucose (74-99) mg/dL Calcium (8.4-10.2) mg/dL Magnesium (1.6-2.3) mg/dL Total Bilirubin (0.2-1.3) mg/dL AST (14-36) U/L ALT (4-34) U/L Alkaline Phosphatase (38-126) U/L Troponin I <0.012 (0.000-0.034) ng/mL Total Protein (6.3-8.2) g/dL Albumin (3.5-5.0) g/dL Lipase (23-300) U/L - EKG Data -: EKG Interpreted by Me EKG Comments: 12-lead Electrocardiogram Interpretation Note EKG was reviewed and interpreted by myself. 12-lead ECG performed at 2157 is interpreted by me as revealing what appears to be sinus rhythm with supraventricular complexes vs rate controlled afib and right bundle branch block morphology at a rate of 60 beats per minute. [place] is normal. NM interval is 130 ms, QRS duration is 182 ms, QTc is 477 ms. Chronic T wave inversions in lead V2. There were no obvious acute ST or T wave abnormalities to suggest myocardial ischemia or injury. R wave progression across the precordium was satisfactory. By my interpretation this EKG is non-diagnostic for acute ischemia. 12-lead Electrocardiogram Interpretation Note EKG was reviewed and interpreted by myself. 12-lead ECG performed at 2245 is interpreted by me as revealing atrial fibrillation with right bundle branch block at a rate of 69 beats per minute. [place] is normal. QRS durations 172 ms, QTc is 495 ms. Isolated T wave inversion in V2 still present. No obvious d ynamic changes.. There were no ST or T wave abnormalities to suggest myocardial ischemia or injury. R wave progression across the precordium was satisfactory. By my interpretation this EKG is non-diagnostic for acute ischemia. Disposition Clinical Impression: Chest pain Disposition: ADMITTED IP TO THIS HOSP Condition: Stable Time of Disposition: 00:31
[2024-01-08] MEDS: SODIUM CHLORIDE 0.9% 500 ML 500 ML IV STA (22:23)
--- NOTE | 2024-01-08 22:44 | XR ---
EXAMINATION TYPE: XR chest 2V DATE OF EXAM: 01/08/2024 COMPARISON: Chest x-ray October 23, 2020 HISTORY: Chest pain TECHNIQUE: Frontal and lateral views of the chest are obtained. FINDINGS: Overlying sternal wires are redemonstrated. Surgical change at level of the aortic root is now seen replacing prior visualized metallic aortic valve . There is no focal air space opacity, pleu ral effusion, or pneumothorax seen. The cardiac silhouette size is mildly enlarged. Underlying scoli osis is seen. IMPRESSION: Mild cardiomegaly without acute pulmonary process.
[2024-01-08 22:58] LABS: Basophils % (A) 1 %; Eosinophils # (A) 0.1 k/uL (0-0.7); Eosinophils % (A) 3 %; HCT 40.9 % (34.0-46.0); HGB 13.1 gm/dL (11.4-16.0); Lymphocytes # (A) 1.2 k/uL (1.0-4.8); Lymphocytes % (A) 28 %; MCH 30.4 pg (25.0-35.0); MCV 95.2 fL (80.0-100.0); Mean Platelet Volume 7.7; Monocytes # (A) 0.3 k/uL (0-1.0); Monocytes % (A) 7 %; Neutrophils # (A) 2.5 k/uL (1.3-7.7); Neutrophils % (A) 60 %; Platelet Count 187 k/uL (150-450); RDW 12.9 % (11.5-15.5); WBC 4.2 k/uL (3.8-10.6)
[2024-01-08 23:08] LABS: Prothrombin Time 10.7 sec (10.0-12.5)
[2024-01-08 23:30] LABS: ALT 22 U/L (4-34); AST 35 U/L (14-36); African American GFR (CKD) >90 (>60 ml/min/1.73 sqM); Albumin 4.5 g/dL (3.5-5.0); Alkaline Phosphatase 71 U/L (38-126); Anion Gap 3 mmol/L; Blood Urea Nitrogen 14 mg/dL (7-17); Carbon Dioxide 32 mmol/L (22-30); Chloride 96 mmol/L (98-107); Glucose 101 mg/dL (74-99); Lipase 265 U/L (23-300); Magnesium 2.1 mg/dL (1.6-2.3); Non-African American GFR(CKD) 88 (>60 ml/min/1.73 sqM); Potassium 3.8 mmol/L (3.5-5.1); Sodium 131 mmol/L (137-145); Total Bilirubin 0.6 mg/dL (0.2-1.3); Total Protein 8.1 g/dL (6.3-8.2)
[2024-01-09] MEDS ORDERED: ONDANSETRON 4 MG/2 ML VIAL IVP PRN (00:33)
[2024-01-09] MEDS ORDERED: NALOXONE 0.4 MG/ML 1 ML VIAL IV PRN (00:33)
[2024-01-09] MEDS ORDERED: NON FORMULARY DRUG (Linaclotide [Linzess] 290 MCG Capsule) PO PRN (06:27)
--- NOTE | 2024-01-09 07:59 | P.HPIM ---
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 Patient was referred to [facility] by cardiology and ended up having TAVR in December 2022 and had to tricuspid valve clip May 2023 which patient has been doing well since, also patient is known to have history of A-fib has been seen electrophysiology for it and been on anticoagulation could not tolerate beta-ana because of severe bradycardia, with history of hypertension, hyperlipidemia, chronic trigeminal neuralgia and neuropathy, recurrent arrhythmia, iron deficiency anemia, hypothyroidism, osteoporosis and IBS. She presented to the emergency department because of chest pain according to her has been having symptoms through the whole day yesterday initially was on the left side radiating to her left arm and shoulder some of it was addressed somewhat exertion her discomfort occasionally has been aggravated with walking had no shortness of breath fever chills cough or any infection recently. Discomfort become much worse before arriving to the ER and upcoming to the emergency department around 10:00 last night. Seen and evaluated EKG on arrival shows A-fib with right bundle branch block. Laboratory values with normal CBC CMP shows mild hyponatremia with normal kidney function troponin was normal no rmal lipase and amylase. Chest x-ray shows mild cardiomegaly without any acute pulmonary process. With her presentation and her history patient was admitted to the hospital will be seeing cardiology CK troponin x 3 will be done repeat EKG in the morning probably another echocardiogram. REVIEW OF SYSTEMS: CONSTITUTIONAL: Well-developed no acute respiratory distress. EYES: No icterus sclerae, no conjunctivitis. EARS, NOSE, MOUTH, THROAT, and FACE: No sore throat, lymphadenopathy, carotid bruits or deformity. RESPIRATORY: No SOB cough or wheezes. CARDIOVASCULAR: No CP, Palpitation, PND, Orthopnea, or angina. GASTROINTESTINAL: No Abd pain, Nausea or vomiting, no Diarrhea or constipation, No GI Bleed, no distention or masses. GENITOURINARY: Negative for Hematuria or UTI, no kidney stones. INTEGUMENT/BREAST: Negative for any muscular injury with mild osteoarthritis.. HEMATOLOGIC/LYMPHATIC: Negative for bleed or purpura. MUSCULOSKELTAL: Negative for Myalgia or arthralgia. NEURLOGICAL: No LOC, Sz or syncope, blurred vision dizziness or abnormality.. BEHAVIORAL/PSYCH: Negative. ENDOCRINE: Negative. PHYSICAL EXAMINATION: General Appearance: Alert, cooperative, no distress, appears stated age. Neck HEENT: Supple, no lymphadenopathy, no thyroid enlargement, no carotid bruits. Lungs: Clear to auscultation without crackles or wheezes no rhonchi, no deformity. Chest Wall: Chest wall normal expansion with deep inspiration no tenderness and no deformity was found on exam, no costochondral pain or discomfort. Heart: Regular rate and rhythm, S1, S2 normal, no murmur, rub or gallop. Back: Symmetric, no curvature, ROM normal, no CVA tenderness. Abdomen: Soft, non-tender, bowel sounds active all four quadrants, no masses, no organomegaly. Extremities: Extremities normal, atraumatic, no cyanosis or edema. Pulses: 2+ and symmetric. Skin: Skin color, texture, tugor normal, no rashes or lesions. Neurologic: Alert oriented x3 cranial nerves II through XII intact, no motor deficit, no abnormal balance or gait. ASSESSMENT AND PLAN: _Recurrent chest pain and angina: Patient has more valvular history than coronary artery and was studied before her recent valve repair. Patient seen Dr. Love regularly, admit patient to the hospital no heparin required will be seeing cardiology CK troponin x 3 waiting for further testing at least an echocardiogram and possible simple stress test. _Valvular heart disease: Post aortic valve placement with TAVR procedure this last year along with with a clip May still seeing cardiology for it. _A-fib with RVR pulse rate is under control remains on Eliquis her pulse rate is slow could not tolerate beta-ana. _Hypertension: Continue amlodipine 5 mg twice a day with benazepril 20 mg twice a day. _Hypothyroidism: Remain on levothyroxine 100 mcg daily _Hyperlipidemia: On Vytorin 10/20 mg a day continue medication. _Severe GERD with mild hiatal hernia: Remain on Esomeprazole 40 mg daily. _Chronic trigeminal neuralgia: Has been on gabapentin 200 mg twice a day. _Osteoporosis: Has been on Prolia along with calcium and vitamin D. _IBS-C: Continue Linzess to 90 mcg daily. _GI prophylaxis: Remain on Nexium. _DVT prophylaxis: Remain on Eliquis 5 mg twice a day. _CODE STATUS: Full code. Admit patient to the inpatient service for 1-2 night stay. Past Medical History Past Medical History: Atrial Fibrillation, Coronary Artery Disease (CAD), GERD/Reflux, Hyperlipidemia, Hypertension, Mitral Valve Prolapse (MVP), Osteoarthritis (OA), Thyroid Disorder Additional Past Medical History / Comment(s): NEUROPATHY. SEE DR CHAVES'S H&P History of Any Multi-Drug Resistant Organisms: None Reported Past Surgical History: Bladder Surgery, Cardiac Valve Replacement, Ear Surgery, Heart Catheterization, Hysterectomy, Joint Replacement Additional Past Surgical History / Comment(s): BLADDER SUSPENSION, AORTIC HEART VALVE REPLACEMENT in 2004, bilateral bunionectomies, 4 Left Knee Surgeries ([address] CHAVES'S H&P Past Anesthesia/Blood Transfusion Reactions: Motion Sickness Past Psychological History: Anxiety Smoking Status: Never smoker - Past Family History Brother(s) Family Medical History: Cancer Additional Family Medical History / Comment(s): LEUKEMIA Father Family Medical History: Coronary Artery Disease (CAD) Mother Family Medical History: Coronary Artery Disease (CAD) Son(s) Family Medical History: No Reported History Medications and Allergies Home Medications Medication Instructions Recorded Confirmed Type Gabapentin [Neurontin] 300 mg PO BID 01/21/14 01/09/24 History Levothyroxine Sodium [Synthroid] 100 mcg PO DAILY@0600 01/21/14 01/09/24 History Ezetimibe/Simvastatin [Vytorin 1 tab PO HS 05/10/15 01/09/24 History 10-20 mg Tablet] Calcium Carbonate/Vitamin D3 2 tab PO PC-LUNCH 12/30/16 01/09/24 History [Calcium 600-Vit D3 800 Tab] Denosumab [Prolia] 60 mg SQ Q180D #0 09/16/17 01/09/24 History Linaclotide [Linzess] 290 mcg PO DAILY PRN 10/07/20 01/09/24 History Apixaban [Eliquis] 5 mg PO BID 11/02/20 01/09/24 History Citalopram Hydrobromide 20 mg PO DAILY 01/16/22 01/09/24 History [Citalopram HBr] Ferrous Sulfate [Iron] 1 tab PO DAILY 01/16/22 01/09/24 History Bumetanide [BUMEX] 1 tab PO BID PRN 05/07/23 01/09/24 History Benazepril HCl [Lotensin] 20 mg PO BID 01/09/24 01/09/24 History Difluprednate [Durezol Ophth Soln] 1 drop RIGHT EYE DIRECTED 01/09/24 01/09/24 History Estradiol Cream [Estrace Cream 2 gm VAGINAL DIRECTED PRN 01/09/24 01/09/24 History 0.01%] Multivit-Min/Iron/Folic/Lutein 1 tab PO PC-LUNCH 01/09/24 01/09/24 History [Centrum Silver Women Tablet] amLODIPine [Norvasc] 5 mg PO DAILY 01/09/24 01/09/24 History atenoloL 25 mg PO DAILY 01/09/24 01/09/24 History clonazePAM 0.5 mg PO DAILY PRN 01/09/24 01/09/24 History clonazePAM 0.5 mg PO HS 01/09/24 01/09/24 History Allergies Allergy/AdvReac Type Severity Reaction Status Date / Time Penicillins Allergy Unknown Arm Verified 01/09/24 06:52 Swelling Physical Exam Vitals: Vital Signs Temp Pulse Pulse Resp BP Pulse Ox 01/09/24 05:00 62 18 111/66 97 01/09/24 04:00 63 16 111/66 98 01/09/24 03:00 60 15 114/72 97 01/09/24 02:19 61 15 114/72 98 01/09/24 00:59 59 L 16 136/74 97 01/08/24 23:55 58 L 17 135/79 97 01/08/24 23:21 60 18 135/79 98 01/08/24 23:00 61 18 129/87 01/08/24 22:03 91 01/08/24 21:49 98 F 65 18 150/88 99 Intake and Output 01/08/24 01/08/24 01/09/24 14:59 22:59 06:59 Other: Weight 58.967 kg Results CBC & Chem 7: 01/08/24 22:18 01/08/24 22:18 Labs: Abnormal Lab Results - Last 24 Hours (Table) 01/08/24 Range/Units 22:18 Sodium 131 L (137-145) mmol/L Chloride 96 L (98-107) mmol/L Carbon Dioxide 32 H (22-30) mmol/L Glucose 101 H (74-99) mg/dL
[2024-01-09] MEDS ORDERED: clonazePAM 0.5 MG TAB PO PRN (08:15)
[2024-01-09] MEDS: lisinopriL 20 MG TAB PO SCH (08:51)
[2024-01-09] MEDS: CITALOPRAM HYDROBROMIDE 20 MG TAB PO SCH (08:52)
[2024-01-09] MEDS: GABAPENTIN 300 MG CAP PO SCH (08:52)
[2024-01-09] MEDS: APIXABAN 5 MG TAB PO SCH (08:52)
[2024-01-09] MEDS: FERROUS SULFATE 325 MG TAB PO SCH (08:52)
[2024-01-09] MEDS: amLODIPine 5 MG TAB PO SCH (08:52)
[2024-01-09] MEDS: LEVOTHYROXINE 100 MCG TAB PO SCH (08:52)
[2024-01-09] MEDS ORDERED: NON FORMULARY DRUG (Esomeprazole Magnesium [Nexium] 40 MG Capsule.Dr) PO SCH (09:00)
[2024-01-09] MEDS ORDERED: BUMETANIDE 1 MG TAB PO PRN (09:00)
[2024-01-09] MEDS: atenoloL 25 MG TAB PO SCH (09:12)
--- NOTE | 2024-01-09 12:51 | P.CRDCN ---
History of Present Illness Consult date: 01/09/24 Consult reason: chest pain History of present illness: This is a 78-year-old female patient of Dr. Love with past medical history of permanent atrial fibrillation on Eliquis, status post aortic valve replacement, s/p tricuspid valve leaflet clip, hypertension, mixed hyperlipidemia. We have been asked to evaluate the patient for chest pain. Patient states that she developed pain in her chest on the left side in the left upper arm. It started yesterday and movement intensifies it. She states it lasted about 3 minutes at a time and was coming and going. She is normally very active and she has not experienced the chest pain when she has been active over the past week. She denies tenderness to the chest wall. She states that she had tricuspid valve surgery May 2023 and a second aortic valve surgery in December 2022. Patient is seen today in the emergency center waiting for a bed on the observation unit. Blood pressure 120/74, heart rate 70, pulse ox 90% on room air. Patient states that she has had occasional heartburn and recommended Nexium [id number]. Patient given option of stress test while in the hospital now or she may follow- up with Dr. Love and have stress testing done as an as an outpatient. Patient has opted to have her stress test done as an outpatient. EKG: Atrial fibrillation with right bundle branch block Chest x-ray: Mild cardiomegaly without acute process Laboratory studies: CBC INR normal. Sodium 131, potassium 3.8, BUN 14 creatinine 0.6. Troponin negative x 3. Magnesium 2.1. Home cardiac medications: Atrial fibrillation ablation 11/07/[address] Duggan Cardiac catheterization performed by Dr. Love 01/12/2019 revealed calcified coronary arteries. Mild disease in the LAD and right coronary artery. Echocardiogram performed 06/12/2023 revealed normal EF, prosthetic AV, AV peak 2 9 mmHg, AV mean 15 mmHg. Estimated RVSP 43 mmHg, status post [id number] tricuspid valve repair, mean gradient 3 mm, moderate tricuspid regurgitation. Tissue AVR 05/16/2005 Review Of Systems: At the time of my exam: CONSTITUTIONAL: Denies fever or chills. HEENT: Denies blurred vision, vision changes, or eye pain. Denies hemoptysis CARDIOVASCULAR: Denies chest pain. Denies orthopnea. Denies PND. Denies palpitations RESPIRATORY: Denies shortness of breath. GASTROINTESTINAL: Denies abdominal pain. Denies nausea or vomiting. HEMATOLOGIC: Denies bleeding disorders. GENITOURINARY: Denies any blood in urine. SKIN: Denies puritis. Denies rash. Physical examination: Gen: This is a 78-year-old female resting in bed and appears to be in no acute distress. VS: reviewed HEENT: Head is atraumatic, normocephalic. Pupils equal, round. Sclerae is anicteric. NECK: Supple. No JVD. LUNGS: Clear to auscultation. No wheezes or rhonchi. No intercostal retractions. HEART: Irregular rate and rhythm. 2/6 systolic ejection murmur at the base, 2/6 holosystolic murmur at the apex. ABDOMEN: Soft No tenderness. EXTREMITIES: No pedal edema. No calf tenderness. NEUROLOGICAL: Patient is awake, alert and oriented x3. Assessment: Atypical chest pain, acute coronary syndrome ruled out with negative troponins Permanent atrial fibrillation Status post aortic valve replacement Status post tricuspid valve clip Hypertension Mixed hyperlipidemia Plan: Resume patient's home cardiac medications Patient is cleared from cardiology and may follow-up with Dr. Love in the office for outpatient stress testing. Continue patient on current cardiac medication regime. Thank you kindly for this consultation. Nurse practitioner note has been reviewed, I agree with documented findings and plan of care. Patient was seen and examined. Past Medical History Past Medical History: Atrial Fibrillation, Coronary Artery Disease (CAD), GERD/Reflux, Hyperlipidemia, Hypertension, Mitral Valve Prolapse (MVP), Osteoarthritis (OA), Thyroid Disorder Additional Past Medical History / Comment(s): NEUROPATHY. SEE DR DUGGAN'S H&P History of Any Multi-Drug Resistant Organisms: None Reported Past Surgical History: Bladder Surgery, Cardiac Valve Replacement, Ear Surgery, Heart Catheterization, Hysterectomy, Joint Replacement Additional Past Surgical History / Comment(s): BLADDER SUSPENSION, AORTIC HEART VALVE REPLACEMENT in 2004, bilateral bunionectomies, 4 Left Knee Surgeries ([address] DUGGAN'S H&P Past Anesthesia/Blood Transfusion Reactions: Motion Sickness Past Psychological History: Anxiety Smoking Status: Never smoker - Past Family History Brother(s) Family Medical History: Cancer Additional Family Medical History / Comment(s): LEUKEMIA Father Family Medical History: Coronary Artery Disease (CAD) Mother Family Medical History: Coronary Artery Disease (CAD) Son(s) Family Medical History: No Reported History Medications and Allergies Home Medications Medication Instructions Recorded Confirmed Type Gabapentin [Neurontin] 300 mg PO BID 01/21/14 01/09/24 History Levothyroxine Sodium [Synthroid] 100 mcg PO DAILY@0600 01/21/14 01/09/24 History Ezetimibe/Simvastatin [Vytorin 1 tab PO HS 05/10/15 01/09/24 History 10-20 mg Tablet] Calcium Carbonate/Vitamin D3 2 tab PO PC-LUNCH 12/30/16 01/09/24 History [Calcium 600-Vit D3 800 Tab] Denosumab [Prolia] 60 mg SQ Q180D #0 09/16/17 01/09/24 History Linaclotide [Linzess] 290 mcg PO DAILY PRN 10/07/20 01/09/24 History Apixaban [Eliquis] 5 mg PO BID 11/02/20 01/09/24 History Citalopram Hydrobromide 20 mg PO DAILY 01/16/22 01/09/24 History [Citalopram HBr] Ferrous Sulfate [Iron] 1 tab PO DAILY 01/16/22 01/09/24 History Bumetanide [BUMEX] 1 tab PO BID PRN 05/07/23 01/09/24 History Benazepril HCl [Lotensin] 20 mg PO BID 01/09/24 01/09/24 History Difluprednate [Durezol Ophth Soln] 1 drop RIGHT EYE DIRECTED 01/09/24 01/09/24 History Estradiol Cream [Estrace Cream 2 gm VAGINAL DIRECTED PRN 01/09/24 01/09/24 History 0.01%] Multivit-Min/Iron/Folic/Lutein 1 tab PO PC-LUNCH 01/09/24 01/09/24 History [Centrum Silver Women Tablet] amLODIPine [Norvasc] 5 mg PO DAILY 01/09/24 01/09/24 History atenoloL 25 mg PO DAILY 01/09/24 01/09/24 History clonazePAM 0.5 mg PO DAILY PRN 01/09/24 01/09/24 History clonazePAM 0.5 mg PO HS 01/09/24 01/09/24 History Allergies Allergy/AdvReac Type Severity Reaction Status Date / Time Penicillins Allergy Unknown Arm Verified 01/09/24 06:52 Swelling Physical Exam Vitals: Vital Signs Temp Pulse Pulse Resp BP Pulse Ox 01/09/24 07:19 67 16 136/82 98 01/09/24 05:00 62 18 111/66 97 01/09/24 04:00 63 16 111/66 98 01/09/24 03:00 60 15 114/72 97 01/09/24 02:19 61 15 114/72 98 01/09/24 00:59 59 L 16 136/74 97 01/08/24 23:55 58 L 17 135/79 97 01/08/24 23:21 60 18 135/79 98 01/08/24 23:00 61 18 129/87 01/08/24 22:03 91 01/08/24 21:49 98 F 65 18 150/88 99 Intake and Output 01/08/24 01/09/24 01/09/24 22:59 06:59 14:59 Other: Weight 58.967 kg Results 01/08/24 22:18 01/08/24 22:18 Cardiac Enzymes 01/08/24 01/08/24 01/09/24 Range/Units 22:18 22:18 01:05 AST 35 (14-36) U/L Troponin I <0.012 <0.012 (0.000-0.034) ng/mL Coagulation 01/08/24 Range/Units 22:18 PT 10.7 (10.0-12.5) sec APTT 30.0 (22.0-30.0) sec CBC 01/08/24 Range/Units 22:18 WBC 4.2 (3.8-10.6) k/uL RBC 4.30 (3.80-5.40) m/uL Hgb 13.1 (11.4-16.0) gm/dL Hct 40.9 (34.0-46.0) % Plt Count 187 (150-450) k/uL Comprehensive Metabolic Panel 01/08/24 Range/Units 22:18 Sodium 131 L (137-145) mmol/L Potassium 3.8 (3.5-5.1) mmol/L Chloride 96 L (98-107) mmol/L Carbon Dioxide 32 H (22-30) mmol/L BUN 14 (7-17) mg/dL Creatinine 0.60 (0.52-1.04) mg/dL Glucose 101 H (74-99) mg/dL Calcium 10.0 (8.4-10.2) mg/dL AST 35 (14-36) U/L ALT 22 (4-34) U/L Alkaline Phosphatase 71 (38-126) U/L Total Protein 8.1 (6.3-8.2) g/dL Albumin 4.5 (3.5-5.0) g/dL Current Medications Generic Name Dose Route Start Last Admin Trade Name Freq PRN Reason Stop Dose Admin Amlodipine Besylate 5 mg 01/09/24 09:00 Amlodipine 5 Mg Tab PO DAILY [facility] Apixaban 5 mg 01/09/24 09:00 Apixaban 5 Mg Tab PO BID [facility] Protocol Atenolol 25 mg 01/09/24 09:00 Atenolol 25 Mg Tab PO DAILY [facility] Atorvastatin Calcium 10 mg 01/09/24 21:00 Atorvastatin 10 Mg Tab PO HS [facility] Bumetanide 1 mg 01/09/24 09:00 Bumetanide 1 Mg Tab PO BID PRN Edema Calcium Carbonate 2 each 01/09/24 13:30 Calcium Carb-Vit D 500 Mg-5 Mcg Tab PO PC-LUNCH [facility] Citalopram Hydrobromide 20 mg 01/09/24 09:00 Citalopram Hydrobromide 20 Mg Tab PO DAILY [facility] Clonazepam 0.5 mg 01/09/24 21:00 Clonazepam 0.5 Mg Tab PO HS [facility] Clonazepam 0.5 mg 01/09/24 08:15 Clonazepam 0.5 Mg Tab PO DAILY PRN Anxiety Ezetimibe 10 mg 01/09/24 21:00 Ezetimibe 10 Mg Tab PO HS [facility] Ferrous Sulfate 325 mg 01/09/24 09:00 Ferrous Sulfate 325 Mg Tab PO DAILY [facility] Gabapentin 300 mg 01/09/24 09:00 Gabapentin 300 Mg Cap PO BID [facility] Levothyroxine Sodium 100 mcg 01/09/24 09:00 Levothyroxine 100 Mcg Tab PO 0630 [facility] Lisinopril 40 mg 01/09/24 09:00 Lisinopril 20 Mg Tab PO DAILY [facility] Multivitamins 1 each 01/09/24 13:30 Multivitamins, Thera 1 Each Tab PO PC-LUNCH [facility] Naloxone HCl 0.2 mg 01/09/24 00:33 Naloxone 0.4 Mg/Ml 1 Ml Vial IV Q2M PRN Opioid Reversal Non-Formulary Medication 290 mcg 01/09/24 06:27 Linaclotide [Linzess] PO DAILY PRN Constipation Ondansetron HCl 4 mg 01/09/24 00:33 Ondansetron 4 Mg/2 Ml Vial IVP Q8HR PRN Nausea And Vomiting Intake and Output 01/08/24 01/09/24 01/09/24 22:59 06:59 14:59 Other: Weight 58.967 kg 01/08/24 22:18 01/08/24 22:18
[2024-01-09] MEDS ORDERED: CALCIUM CARB-VIT D 500 MG-5 MCG TAB PO SCH (13:30)
[2024-01-09] MEDS ORDERED: MULTIVITAMINS, THERA 1 EACH TAB PO SCH (13:30)
[2024-01-09 14:41] VITALS: BP 106/65; PULSE 63; RESP 18
--- NOTE | 2024-01-09 18:20 | CA ---
Transthoracic Echo Report Name: Emmy Patel Age: 78 Gender: F : 1945 Exam Date: 01/09/2024 10:33 Exam Location: [place] [facility] Ht (in): 64 Wt (lb): 130 Ordering Physician: Ruddy Kidd MD Attending/Referring Phys: Pin Ball Machine Mechanic Yolanda Martinez RDCS Procedure CPT: Indications: Chest Pain Cardiac Hx: Technical Quality: Good Contrast 1: Total Dose (mL): Contrast 2: Total Dose (mL): MEASUREMENTS (Male / Female) Normal Values 2D ECHO LV Diastolic Diameter PLAX 4.3 cm 4.2 - 5.9 / 3.9 - 5.3 cm LV Systolic Diameter PLAX 2.9 cm IVS Diastolic Thickness 0.9 cm 0.6 - 1.0 / 0.6 - 0.9 cm LVPW Diastolic Thickness 0.9 cm 0.6 - 1.0 / 0.6 - 0.9 cm LV Relative Wall Thickness 0.4 RV Internal Dim ED PLAX 4.2 cm LVOT Diameter 2.0 cm LV Diastolic Volume MOD BP 92.3 cm??? 67 - 155 / 56 - 104 cm??? LV Systolic Volume MOD BP 30.4 cm??? 22 - 58 / 19 - 49 cm??? LV Ejection Fraction MOD BP 67.1 % >= 55 % LV Cardiac Index MOD BP 2572.6 cm???/min???m??? LV Diastolic Volume MOD 4C 84.9 cm??? LV Systolic Volume MOD 4C 23.2 cm??? LV Ejection Fraction MOD 4C 72.6 % LV Cardiac Index MOD 4C 2563.1 cm???/min???m??? LV Diastolic Length 4C 7.8 cm LV Systolic Length 4C 5.7 cm LV Diastolic Volume MOD 2C 96.3 cm??? LV Systolic Volume MOD 2C 34.0 cm??? LV Ejection Fraction MOD 2C 64.7 % LV Cardiac Index MOD 2C 2589.7 cm???/min???m??? LV Diastolic Length 2C 8.2 cm LV Systolic Length 2C 6.7 cm LA Volume 85.3 cm??? 18 - 58 / 22 - 52 cm??? LA Volume Index 52.2 cm???/m??? 16 - 28 cm???/m??? Ascending Aorta Diameter 3.2 cm DOPPLER AV Peak Velocity 268.3 cm/s AV Peak Gradient 28.8 mmHg AV Mean Velocity 195.4 cm/s AV Mean Gradient 17.0 mmHg AV Velocity Time Integral 67.4 cm LVOT Peak Velocity 158.0 cm/s LVOT Peak Gradient 10.0 mmHg LVOT Velocity Time Integral 36.4 cm LVOT Stroke Volume 109.6 cm??? LVOT Stroke Volume Index 67.3 ml/m??? LVOT Cardiac Index 4557.0 cm???/min???m??? AV Area Cont Eq vti 1.6 cm??? AV Area Cont Eq pk 1.8 cm??? MV Area PHT 3.4 cm??? Mitral E Point Velocity 99.9 cm/s Mitral A Point Velocity 40.0 cm/s Mitral E to A Ratio 2.5 MV Deceleration Time 222.9 ms TV Peak Velocity 114.5 cm/s TR Peak Velocity 234.8 cm/s TR Peak Gradient 22.1 mmHg Right Atrial Pressure 20.0 mmHg Pulmonary Artery Systolic Pressu 42.1 mmHg Right Ventricular Systolic Press 42.1 mmHg PV Peak Velocity 118.3 cm/s PV Peak Gradient 5.6 mmHg FINDINGS Left Ventricle Left ventricular ejection fraction is estimated at 60-65 %. Left ventricular cavity size normal. Left ventricular wall thickness normal. No obvious regional wall motion abnormalities. Right Ventricle Moderate right ventricular dilatation with mild to moderately reduced function. Mildly elevated right ventricular systolic pressure, may be underestimated due to severely enlarged right atrium and severity of tricuspid regurgitation. Right Atrium Severe right atrial dilatation. Left Atrium Severely increased left atrial volume. Mildly increased left atrial area. Mitral Valve Mitral valve thickened. Mild mitral annular calcification. No evidence for mitral valve prolapse. No mitral stenosis. Moderate mitral regurgitation. Aortic Valve Bioprosthetic aortic valve replacement (x2) with a peak velocity of 2.85 m/s, mean gradient 18 mmHg, and estimated aortic valve area of 1.6 cm???. Trace prosthetic regurgitation. Tricuspid Valve Status post tricuspid valve leaflet clip (05/2023). Gradient recorded across the tricuspid valve clip 4mmHg. [id number] tricuspid regurgitation. Pulmonic Valve Structurally normal pulmonic valve. No pulmonic stenosis. Mild pulmonic regurgitation. Pericardium No pericardial effusion. Aorta Normal size aortic root and proximal ascending aorta. CONCLUSIONS Left ventricular ejection fraction is estimated at 60-65 %. No obvious regional wall motion abnormalities. Moderate right ventricular dilatation with mild to moderately reduced function. Severe biatrial dilatation Mitral valve leaflet thickening with moderate mitral regurgitation Bioprosthetic aortic valve x 2, mean gradient 18 mmHg, trace regurg S/p tricuspid clip May 2023, moderate to severe TR Mild pulmonic regurg Previewed by: Dr Kingston Aragon (Electronically Signed) Final Date: 09 January 2024 18:19
[2024-01-09] MEDS ORDERED: ATORVASTATIN 10 MG TAB PO SCH (21:00)
[2024-01-09] MEDS ORDERED: clonazePAM 0.5 MG TAB PO SCH (21:00)
[2024-01-09] MEDS ORDERED: EZETIMIBE 10 MG TAB PO SCH (21:00)
--- NOTE | 2024-01-10 06:37 | P.DS ---
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 Patient was referred to [facility] by cardiology and ended up having TAVR in December 2022 and had to tricuspid valve clip May 2023 which patient has been doing well since, also patient is known to have history of A-fib has been seen electrophysiology for it and been on anticoagulation could not tolerate beta-ana because of severe bradycardia, with history of hypertension, hyperlipidemia, chronic trigeminal neuralgia and neuropathy, recurrent arrhythmia, iron deficiency anemia, hypothyroidism, osteoporosis and IBS. She presented to the emergency department because of chest pain according to her has been having symptoms through the whole day yesterday initially was on the left side radiating to her left arm and shoulder some of it was addressed somewhat exertion her discomfort occasionally has been aggravated with walking had no shortness of breath fever chills cough or any infection recently. Discomfort become much worse before arriving to the ER and upcoming to the emergency department around 10:00 last night. Seen and evaluated EKG on arrival shows A-fib with right bundle branch block. Laboratory values with normal CBC CMP shows mild hyponatremia with normal kidney function troponin was normal normal lipase and amylase. Chest x-ray shows mild cardiomegaly without any acute pulmonary process. With her presentation and her history patient was admitted to the hospital will be seeing cardiology CK troponin x 3 will be done repeat EKG in the morning probably another echocardiogram. REVIEW OF SYSTEMS: CONSTITUTIONAL: Well-developed no acute respiratory distress. EYES: No icterus sclerae, no conjunctivitis. EARS, NOSE, MOUTH, THROAT, and FACE: No sore throat, lymphadenopathy, carotid bruits or deformity. RESPIRATORY: No SOB cough or wheezes. CARDIOVASCULAR: No CP, Palpitation, PND, Orthopnea, or angina. GASTROINTESTINAL: No Abd pain, Nausea or vomiting, no Diarrhea or constipation, No GI Bleed, no distention or masses. GENITOURINARY: Negative for Hematuria or UTI, no kidney stones. INTEGUMENT/BREAST: Negative for any muscular injury with mild osteoarthritis.. HEMATOLOGIC/LYMPHATIC: Negative for bleed or purpura. MUSCULOSKELTAL: Negative for Myalgia or arthralgia. NEURLOGICAL: No LOC, Sz or syncope, blurred vision dizziness or abnormality.. BEHAVIORAL/PSYCH: Negative. ENDOCRINE: Negative. PHYSICAL EXAMINATION: General Appearance: Alert, cooperative, no distress, appears stated age. Neck HEENT: Supple, no lymphadenopathy, no thyroid enlargement, no carotid bruits. Lungs: Clear to auscultation without crackles or wheezes no rhonchi, no deformity. Chest Wall: Chest wall normal expansion with deep inspiration no tenderness and no deformity was found on exam, no costochondral pain or discomfort. Heart: Regular rate and rhythm, S1, S2 normal, no murmur, rub or gallop. Back: Symmetric, no curvature, ROM normal, no CVA tenderness. Abdomen: Soft, non-tender, bowel sounds active all four quadrants, no masses, no organomegaly. Extremities: Extremities normal, atraumatic, no cyanosis or edema. Pulses: 2+ and symmetric. Skin: Skin color, texture, tugor normal, no rashes or lesions. Neurologic: Alert oriented x3 cranial nerves II through XII intact, no motor deficit, no abnormal balance or gait. ASSESSMENT AND PLAN: _Recurrent chest pain and angina: Patient has more valvular history than coronary artery and was studied before her recent valve repair. Patient seen Dr. Love regularly, admit patient to the hospital no heparin required will be seeing cardiology CK troponin x 3 waiting for further testing at least an echocardiogram and possible simple stress test. _Valvular heart disease: Post aortic valve placement with TAVR procedure this last year along with with a clip May still seeing cardiology for it. _A-fib with RVR pulse rate is under control remains on Eliquis her pulse rate is slow could not tolerate beta-ana. _Hypertension: Continue amlodipine 5 mg twice a day with benazepril 20 mg twice a day. _Hypothyroidism: Remain on levothyroxine 100 mcg daily _Hyperlipidemia: On Vytorin 10/20 mg a day continue medication. _Severe GERD with mild hiatal hernia: Remain on Esomeprazole 40 mg daily. _Chronic trigeminal neuralgia: Has been on gabapentin 200 mg twice a day. _Osteoporosis: Has been on Prolia along with calcium and vitamin D. _IBS-C: Continue Linzess to 90 mcg daily. _GI prophylaxis: Remain on Nexium. _DVT prophylaxis: Remain on Eliquis 5 mg twice a day. Hospital course: Patient was admitted to the hospital with chest pain ongoing since the day before midsternal with slight aggravation with exertion symptoms are radiating toward the left upper shoulder area. Patient has some comorbidity but testing are up-to-date has noted to have valvular heart disease been seen by Dr. Love in [facility] and by cardiology at [facility]. First assessment with EKG does not show any major abnormality troponin was negative. Her laboratory value continue not to show any major change in abnormality. Patient was evaluated by cardiology review her echocardiogram after having her intervention with her TAVR back in January last year and [id number] tricuspid valve repair back in May which seems to do very well with. The patient has an appointment to see cardiology in the office the next few days. After being seen and evaluated the following few hours patient had no complaints or symptoms Could discharge patient home to follow-up as an outpatient by cardiology and myself in the next few days. Patient was discharged and stable condition. Time spent on discharging patient was over 30 minutes. Patient Condition at Discharge: Stable Plan - Discharge Summary New Discharge Prescriptions: Continue Levothyroxine Sodium [Synthroid] 100 mcg PO DAILY@0600 Gabapentin [Neurontin] 300 mg PO BID Ezetimibe/Simvastatin [Vytorin 10-20 mg Tablet] 1 tab PO HS Calcium Carbonate/Vitamin D3 [Calcium 600-Vit D3 800 Tab] 2 tab PO PC-LUNCH Denosumab [Prolia] 60 mg SQ Q180D #0 Linaclotide [Linzess] 290 mcg PO DAILY PRN PRN Reason: Constipation clonazePAM 0.5 mg PO HS amLODIPine [Norvasc] 5 mg PO DAILY Multivit-Min/Iron/Folic/Lutein [Centrum Silver Women Tablet] 1 tab PO PC- LUNCH Apixaban [Eliquis] 5 mg PO BID Citalopram Hydrobromide [Citalopram HBr] 20 mg PO DAILY Ferrous Sulfate [Iron] 1 tab PO DAILY Bumetanide [BUMEX] 1 tab PO BID PRN PRN Reason: weight gain Difluprednate [Durezol Ophth Soln] 1 drop RIGHT EYE DIRECTED atenoloL 25 mg PO DAILY clonazePAM 0.5 mg PO DAILY PRN PRN Reason: Anxiety Benazepril HCl [Lotensin] 20 mg PO BID Estradiol Cream [Estrace Cream 0.01%] 2 gm VAGINAL DIRECTED PRN PRN Reason: dryness Discharge Medication List Gabapentin [Neurontin] 300 mg PO BID 01/21/14 [History] Levothyroxine Sodium [Synthroid] 100 mcg PO DAILY@0600 01/21/14 [History] Ezetimibe/Simvastatin [Vytorin 10-20 mg Tablet] 1 tab PO HS 05/10/15 [History] Calcium Carbonate/Vitamin D3 [Calcium 600-Vit D3 800 Tab] 2 tab PO PC-LUNCH 12/30/16 [History] Denosumab [Prolia] 60 mg SQ Q180D #0 09/16/17 [History] Linaclotide [Linzess] 290 mcg PO DAILY PRN 10/07/20 [History] Apixaban [Eliquis] 5 mg PO BID 11/02/20 [History] Citalopram Hydrobromide [Citalopram HBr] 20 mg PO DAILY 01/16/22 [History] Ferrous Sulfate [Iron] 1 tab PO DAILY 01/16/22 [History] Bumetanide [BUMEX] 1 tab PO BID PRN 05/07/23 [History] Benazepril HCl [Lotensin] 20 mg PO BID 01/09/24 [History] Difluprednate [Durezol Ophth Soln] 1 drop RIGHT EYE DIRECTED 01/09/24 [History] Estradiol Cream [Estrace Cream 0.01%] 2 gm VAGINAL DIRECTED PRN 01/09/24 [History] Multivit-Min/Iron/Folic/Lutein [Centrum Silver Women Tablet] 1 tab PO PC-LUNCH 01/09/24 [History] amLODIPine [Norvasc] 5 mg PO DAILY 01/09/24 [History] atenoloL 25 mg PO DAILY 01/09/24 [History] clonazePAM 0.5 mg PO DAILY PRN 01/09/24 [History] clonazePAM 0.5 mg PO HS 01/09/24 [History] Follow up Appointment(s)/Referral(s): Juan Love MD [STAFF PHYSICIAN] - 1 Week Alban Nelson MD [Primary Care Provider] - 1-2 days Patient Instructions/Handouts: Chest Pain (DC) Discharge Disposition: HOME SELF-CARE
== END 2024-01-09 14:39 | disposition home or self-care (01) ==
LOC: EC 21:47 → 6NMEDSUR 01-09 00:33
PROVIDERS: ADMIT Internal Medicine Geriatric Medicine; ATTEND Internal Medicine Geriatric Medicine
DX: R07.89 Other chest pain (principal); I25.119 Atherosclerotic heart disease of native coronary artery with unspecified angina pectoris; I48.21 Permanent atrial fibrillation; E87.1 Hypo-osmolality and hyponatremia; I11.9 Hypertensive heart disease without heart failure; I45.10 Unspecified right bundle-branch block; I08.3 Combined rheumatic disorders of mitral, aortic and tricuspid valves; E78.2 Mixed hyperlipidemia; D50.9 Iron deficiency anemia, unspecified; G62.9 Polyneuropathy, unspecified; G50.0 Trigeminal neuralgia; E03.9 Hypothyroidism, unspecified; M19.90 Unspecified osteoarthritis, unspecified site; K21.9 Gastro-esophageal reflux disease without esophagitis; K44.9 Diaphragmatic hernia without obstruction or gangrene; M81.0 Age-related osteoporosis without current pathological fracture; K58.1 Irritable bowel syndrome with constipation; M79.602 Pain in left arm; M25.512 Pain in left shoulder; Z79.890 Hormone replacement therapy; Z79.01 Long term (current) use of anticoagulants; Z79.620 Long term (current) use of immunosuppressive biologic; Z79.899 Other long term (current) drug therapy; Z88.0 Allergy status to penicillin; Z95.2 Presence of prosthetic heart valve
CPT/HCPCS: 99285; 36415; 93005; 93306; 80053; 83690; 83735; 84484 ×2; 85025; 85610; 85730; 71046; G0378

== ENCOUNTER → 2024-01-31 | Outpatient (CLI) | payer MEDICARE, BC ==
--- NOTE | 2024-01-31 15:23 | MM ---
Reason for Exam: Follow-up at short interval from prior study. Last screening mammogram was performed 6 month(s) ago. Patient History: Menarche at age 12. First Full-Term at age 20. Left ovary removed at age 48. Right ovary removed at age 48. Hysterectomy at age 48. Postmenopausal. Currently using Estrogen, beginning at age 48 for 17 years. 1993, Benign Excisional Biopsy on the right side. 1993, Benign Excisional Biopsy on the left side. Mother had ovarian cancer. Risk Values: Mary Grace 5 year model risk: 2.3%. NCI Lifetime model risk: 4.1%. Prior Study Comparison: 07/23/2022 Bilateral MG 3D screening mammo w/cad, [facility]. 07/29/2023 Bilateral MG 3D screening mammo w/cad, [facility]. 08/01/2023 Right MG 3D work up w/cad RT, [facility]. Tissue Density: Right: The breasts are heterogeneously dense, which may obscure small masses. Findings: Analyzed By CAD. Benign bilateral oil cyst calcifications and vascular calcifications are redemonstrated. The area of asymmetric density central inner aspect of the right cc view middle depth appears less defined from prior exam but still more pronounced from older priors. Ongoing shortness. Follow-up recommended. Overall Assessment: Probably benign, BI-RAD 3 Management: Diagnostic Mammogram of both breasts in 6 months. Total one-year follow-up right breast and annual exam of the left breast. Results were given to the patient verbally at the time of exam. Patient should continue monthly self-breast exams. A clinical breast exam by your physician is recommended on an annual basis. This exam should not preclude additional follow-up of suspicious palpable abnormalities. Note on Mary Grace scores and lifetime risk: 1. A Mary Grace score greater than 3% is considered moderate risk. If this is the case, consider specialist referral to assess eligibility for a risk reducing agent. 2. If overall lifetime risk for the development of breast cancer is 20% or higher, the patient may qualify for future screening with alternating mammogram and breast MRI. Electronically signed and approved by: Annita Armenta M.D. Radiologist
== END | disposition home or self-care (01) ==
LOC: RADMAMWWP 14:49
PROVIDERS: ATTEND Family Medicine
DX: R92.2 Inconclusive mammogram (principal); Z78.0 Asymptomatic menopausal state; R92.331 Mammographic heterogeneous density, right breast
CPT/HCPCS: 77065; G0279; 77061

== ENCOUNTER 2024-03-03 07:00 | Day surgery (SDC) | payer MEDICARE, BC ==
[2024-03-03] MEDS ORDERED: PROPOFOL 10 MG/ML 20 ML VIAL IV ONE (08:16)
[2024-03-03] MEDS ORDERED: LACTATED RINGERS 1,000 ML BAG ONE (08:20)
--- NOTE | 2024-03-06 15:56 | PCN ---
PROCEDURE NOTE BRIEF HISTORY: The patient is a 79-year-old pleasant white female scheduled for an elective upper endoscopy as well as colonoscopy as a part of evaluation of longstanding history of GERD and intermittent rectal bleeding. PROCEDURES PERFORMED: 1. EGD with biopsy. 2. Colonoscopy. PREOPERATIVE DIAGNOSES: GERD and intermittent rectal bleeding. ANESTHESIA: IV sedation per Anesthesia. DESCRIPTION OF PROCEDURE: After informed consent was obtained from the patient, she was brought in to the endoscopy unit. IV conscious sedation was administered by Anesthesia and continuous monitoring initially. Upper endoscopy was done. An Olympus CF-180 video endoscope was inserted in the mouth and esophagus intubated without any difficulty and was gradually advanced into the stomach and duodenum carefully examined. The second part of the duodenum appeared normal. Scope was then withdrawn through the stomach, adequately insufflated with air and upon careful examination of mucosa of the antrum, body, cardia, and fundus appeared normal. Scope was then withdrawn through the esophagus. The GE junction was located at 37 cm from the incisors. There was a small hiatal hernia noted. There were linear erosions in the distal esophagus consistent with LA grade B reflux esophagitis. There was a small tongue of questionable Ayon's mucosa just proximal to the GE junction measuring about 2 mm in size, which was biopsied. Rest of the esophagus appeared normal and the patient tolerated the procedure well. She continued to remain sedated. At this time, a colonoscopy was done. Digital rectal examination was normal. The Olympus CF-190 video colonoscope was then inserted in the rectum, gradually advanced to the cecum. Careful examination was performed. The scope was gradually being withdrawn. Ileocecal valve and the appendiceal orifice was visualized and appeared normal. The prep was excellent. Cecum, ascending colon, transverse colon, descending colon, sigmoid colon, and rectum appeared normal. In the rectum, retroflexion was performed, grade 2 internal hemorrhoids were seen. The patient tolerated the procedure well. IMPRESSION: 1. Upper endoscopy revealed. a. Small hiatal hernia. b.Linear erosions in the distal esophagus consistent with LA grade B reflux esophagitis. c.Questionable 2 mm appearing mucosa proximal to the GE junction status post biopsy to evaluate for Ayon's esophagus. 2. Colonoscopy revealed grade 2 internal hemorrhoids. No evidence of colorectal neoplasia. RECOMMENDATIONS: Findings of this examination were discussed with the patient as well as her family. She was advised to follow up with the biopsy results. Stop Pepcid and we will start her on Prilosec 20 mg daily and follow anti-reflux measures in regard to intermittent rectal bleeding. Advised her to be on a high-fiber diet and take fiber supplements on a regular basis and avoid straining and constipation. MMODL / IJN: [id number] /
== END 2024-03-03 09:30 ==
LOC: ORWHC2ENDO 07:00
PROVIDERS: ATTEND Internal Medicine Gastroenterology
DX: K21.00 Gastro-esophageal reflux disease with esophagitis, without bleeding (principal); K64.1 Second degree hemorrhoids; K44.9 Diaphragmatic hernia without obstruction or gangrene; I11.0 Hypertensive heart disease with heart failure; I50.9 Heart failure, unspecified; E78.5 Hyperlipidemia, unspecified; E03.9 Hypothyroidism, unspecified; K58.9 Irritable bowel syndrome, unspecified; Z79.01 Long term (current) use of anticoagulants; Z79.890 Hormone replacement therapy; Z79.899 Other long term (current) drug therapy; Z88.0 Allergy status to penicillin
CPT/HCPCS: 43239; 45378; 88305

== ENCOUNTER → 2024-06-22 | Outpatient (CLI) | payer MEDICARE, BC ==
[2024-06-22 14:02] VITALS: BP 104/63; PULSE 63; RESP 16; TEMP 97.7
[2024-06-22] MEDS: DENOSUMAB 60 MG/ML 1 ML SYRINGE SQ ONE (14:05)
== END ==
LOC: PROCWHC3 13:38
PROVIDERS: ATTEND Internal Medicine Geriatric Medicine
DX: M81.0 Age-related osteoporosis without current pathological fracture (principal)
CPT/HCPCS: 96372; J0897

== ENCOUNTER → 2024-08-17 | Outpatient (CLI) | payer MEDICARE, BC ==
--- NOTE | 2024-08-17 15:13 | MM ---
Reason for Exam: Follow-up at short interval from prior study. Last mammogram was performed 1 year(s) and 1 month(s) ago. Patient History: Menarche at age 12. First Full-Term at age 20. Left ovary removed at age 48. Right ovary removed at age 48. Hysterectomy at age 48. Postmenopausal. Estrogen, starting at age 48 for 17 years. 1993, Benign Excisional Biopsy on the right side. 1993, Benign Excisional Biopsy on the left side. Mother had ovarian cancer. Risk Values: Mary Grace 5 year model risk: 2.3%. NCI Lifetime model risk: 3.8%. Prior Study Comparison: 10/11/1998 Screening Mammogram, [facility]. 03/09/2013 Bilateral Screening Mammogram, [facility]. 03/16/2014 Bilateral Screening Mammogram, [facility] 04/07/2015 Bilateral Screening Mammogram, [facility]. 04/19/2015 Left Diagnostic Mammogram, [facility]. 04/23/2016 Bilateral Screening Mammogram, [facility]. 05/27/2017 Bilateral Screening Mammogram, [facility]. 05/29/2018 Bilateral Screening Mammogram, [facility]. 06/25/2019 Bilateral Screening Mammogram, [facility]. 06/27/2020 Bilateral Screening Mammogram, [facility]. 09/27/2020 Left Diagnostic Ultrasound, [facility]. 07/17/2021 Bilateral Screening Mammogram, [facility]. 07/23/2022 Bilateral MG 3D screening mammo w/cad, [facility]. 07/29/2023 Bilateral MG 3D screening mammo w/cad, [facility]. 08/01/2023 Right MG 3D work up w/cad RT, [facility]. 01/31/2024 Right MG 3D diag mammo w/cad RT, [facility]. Tissue Density: The breasts are heterogeneously dense, which may obscure small masses. Findings: Analyzed By CAD. Benign-appearing round calcifications bilaterally are redemonstrated. Benign appearing vascular calcification in the right breast is again seen. Overall Assessment: Benign, BI-RAD 2 Management: Screening Mammogram of both breasts in 1 year. Return to routine follow-up. Results were given to the patient verbally at the time of exam. Patient should continue monthly self-breast exams. A clinical breast exam by your physician is recommended on an annual basis. This exam should not preclude additional follow-up of suspicious palpable abnormalities. Note on Mary Grace scores and lifetime risk: 1. A Mary Grace score greater than 3% is considered moderate risk. If this is the case, consider specialist referral to assess eligibility for a risk reducing agent. 2. If overall lifetime risk for the development of breast cancer is 20% or higher, the patient may qualify for future screening with alternating mammogram and breast MRI. [facility], , 08/17/2024 3:09 PM. Electronically signed and approved by: Reji Atwood M.D.
== END | disposition home or self-care (01) ==
LOC: RADMAMWWP 14:44
PROVIDERS: ATTEND Internal Medicine Geriatric Medicine
DX: R92.8 Other abnormal and inconclusive findings on diagnostic imaging of breast (principal); R92.333 Mammographic heterogeneous density, bilateral breasts; Z78.0 Asymptomatic menopausal state; Z90.722 Acquired absence of ovaries, bilateral; Z80.41 Family history of malignant neoplasm of ovary
CPT/HCPCS: 77066; G0279; 77062

== ENCOUNTER → 2025-01-21 | Outpatient (CLI) | payer MEDICARE, BC ==
[2025-01-21 13:29] VITALS: BP 120/67; PULSE 76; RESP 16; TEMP 97.7
[2025-01-21] MEDS: DENOSUMAB 60 MG/ML 1 ML SYRINGE SQ NR (13:30)
== END ==
LOC: PROCWHC3 13:06
PROVIDERS: ATTEND Internal Medicine Geriatric Medicine
DX: M81.0 Age-related osteoporosis without current pathological fracture (principal)
CPT/HCPCS: 96372; J0897